=== PATIENT | female | born 1960 | race Caucasian/White ===

== ENCOUNTER → 2020-01-18 | Day surgery (SDC) | payer OTHER ==
[~2020-01-18] MED LIST: PREMYELOGRAM MEDICATION REVIEW 1 EACH MISC PO NR; diazePAM 5 MG TAB PO STA
[2020-01-18 08:37] VITALS: RESP 16; TEMP 98.2
--- NOTE | 2020-01-18 10:24 | FL ---
EXAMINATION TYPE: FL myelogram 2 or more regions DATE OF EXAM: 01/18/2020 COMPARISON: Outside institution MRI lumbar spine 12/15/2019 HISTORY: M54.6, M54.5 Preprocedure preliminary arc trimmer radiograph of the lumbar spine demonstrates bilateral posterior fixati on rods and transpedicular screws of T12 and L2. Informed consent was obtained and all the patient's questions were answered. The L2-L3 level was loc alized under fluoroscopy. Standard sterile technique was utilized as well as appropriate local anest hesia 1% Lidocaine and sodium bicarbonate. Spinal needle was introduced into the thecal sac under fl uoroscopic guidance and 8 mL's of Isovue M 300 was injected. The patient tolerated the procedure wel l and left the department in stable condition. CT myelography is to follow. Postprocedure imaging demonstrates multilevel disc bulges, and chronic deformity of the L1 vertebral body, redemonstrated from outside institution 12/15/2019 MRI spine. Total fluoroscopy time 34 seconds Total images acquired 4 IMPRESSION: 1. Successful myelography lumbar spine. 2. Thoracic and lumbar CT myelography to follow.
[2020-01-18 15:36] VITALS: BP 161/91; PULSE 102
--- NOTE | 2020-01-19 12:39 | CT ---
EXAMINATION TYPE: CT thor lumbar spine w con DATE OF EXAM: 01/18/2020 COMPARISON: Fluoroscopic myelogram 01/18/2020. Outside institution MRI lumbar spine 12/15/2019. HISTORY: M54.6, M54.5 Automated exposure control for dose reduction was used. CONTRAST: CT scan of the thoracic and lumbar is performed with intrathecal contrast status post fluoroscopic marcio mbar myelogram. Enhanced CT of the thoracic and lumbar spine was performed. Bone and soft tissue window settings are submitted as well as coronal and sagittal reconstructions. Intrathecal contrast is seen from the level of T2 through the level of L4. No acute fracture or dislocation of the thoracic or lumbar spine. There are bilateral posterior fixation rods and transpedicular screws of T12 and L2 with no evidence of significant loosening. There is likely fracture of the right L2 transpedicular screw. There is redemonstrated vertically oriented fracture anterior and mid of the L1 vertebral body, with mild to moderate superior endplate height loss and mild inferior endplate height loss. There is nonun ion of the right mid vertebral body fracture component. Mild retropulsion of L1 with mild canal steno sis. There are diffuse anterior and posterior osteophytic spurring, and posterior disc bulges from T6-T7 t hrough T11-T12, all of which indent the ventral aspect of the thecal sac. At T7-T8 there is superimpo sed left subarticular and foraminal osteophytosis with mild canal stenosis and mass effect on the lef t lateral recess. T9-T10 mild canal stenosis. T11-T12 mild superimposed asymmetric right subarticular disc protrusion indents the ventral aspect of the thecal sac. Posterior disc bulging at L3-L4 with [id number] canal stenosis. There is grade 1 anterolisthesi s of L4 on L5, and abrupt cut off of intrathecal contrast at L4-L5, likely due to severe canal stenos is, and consistent with 12/15/2019 MRI findings. L5-S1 is limited in evaluation due to lack of intrath ecal contrast at this level. There is severe L5-S1 disc space narrowing. Vacuum disc phenomenon is se en at L4-L5 and L5-S1. Facet arthropathy with varying degrees of neural foraminal bony encroachment, better delineated on MRI comparison. Nonobstructing bilateral renal calculi. IMPRESSION: 1. Posterior fixation of T12 and L2, likely with fracture of the mid right L2 transpedicular screw. 2. Redemonstrated fracture compression deformity of the L1 vertebral body with mild retropulsion and mild canal stenosis. 3. Degenerative changes of the thoracic and lumbar spine. Varying degrees of mild canal stenosis of the thoracic spine. Varying degrees of mild to severe canal stenosis of the lumbar spine, with abrupt cut off of intrathecal contrast and severe canal stenosis at L4-L5. 4. Nonobstructing bilateral renal calculi.
== END ==
LOC: RADPROMAIN 06:54
PROVIDERS: ATTEND Orthopaedic Surgery
DX: M47.27 Other spondylosis with radiculopathy, lumbosacral region (principal); M48.061 Spinal stenosis, lumbar region without neurogenic claudication; M43.16 Spondylolisthesis, lumbar region; F32.9 Major depressive disorder, single episode, unspecified; Z82.3 Family history of stroke; Z80.8 Family history of malignant neoplasm of other organs or systems
CPT/HCPCS: 62305; 72129; 72132; J2001; Q9967

== ENCOUNTER → 2020-01-26 | Outpatient (CLI) | payer OTHER | END | disposition home or self-care (01) | LOC: LABPAT 10:11 | PROVIDERS: ATTEND Orthopaedic Surgery | DX: Z01.812 Encounter for preprocedural laboratory examination (principal) | CPT/HCPCS: 87070 ==

== ENCOUNTER → 2020-02-01 | Outpatient (CLI) | payer OTHER ==
--- NOTE | 2020-02-01 12:26 | XR ---
EXAMINATION TYPE: XR chest 2V DATE OF EXAM: 02/01/2020 COMPARISON: None INDICATION: Preprocedure exam TECHNIQUE: Frontal and lateral views of the chest are obtained. FINDINGS: The heart size is normal. The pulmonary vasculature is normal. The lungs are clear. Postsurgical changes are noted at the thoracolumbar junction IMPRESSION: 1. No acute pulmonary process.
== END | disposition home or self-care (01) ==
LOC: RADXRMAIN 10:57
PROVIDERS: ATTEND Family Medicine
DX: Z01.818 Encounter for other preprocedural examination (principal)
CPT/HCPCS: 71046

== ENCOUNTER 2020-02-14 12:50 | Inpatient (IN) | payer OTHER ==
[2020-02-15 09:40] VITALS: BMI 26.5
[2020-02-20] MEDS ORDERED: TRANEXAMIC ACID 1,000 MG in SODIUM CHLORIDE 0.9% 100 ML IVPB ONE ×6 (05:00→21:00)
[2020-02-20] MEDS ORDERED: ACETAMINOPHEN TAB 500 MG TAB PO ONE (05:00)
[2020-02-20] MEDS ORDERED: ONDANSETRON 4 MG/2 ML VIAL IVP ONE ×2 (05:00→05:27)
[2020-02-20] MEDS ORDERED: GABAPENTIN 300 MG CAP PO ONE (05:00)
[2020-02-20] MEDS ORDERED: LIDOCAINE 1% (10MG/ML) FOR IV START INTRADERMA PRN (05:27)
[2020-02-20] MEDS ORDERED: HYDROmorphone 0.5 MG/0.5 ML SYRINGE IVP PRN (05:27)
[2020-02-20] MEDS: LACTATED RINGERS 1,000 ML IV SCH (08:32)
--- NOTE | 2020-02-20 10:05 | P.HPOR ---
History of Present Illness Chief Complaint: Low back pain with LE weakness HISTORY: Physical Therapy: Yes How many sessions? 4 weeks Did it help? No Injections: Yes How many? in 2013 Did they help? minimal Activity Modifications: none Brace: No This 59 year old female presents with 10 years of low back pain. She note carlo that radiates across the entire low back and down into her right leg. She also notes pain into the left thigh ( lateral). Patient has increased pain with walking or when standing from a seated position. Patient also notes weakness in her right lower extremity.. She has history of fracture in her low back 2011 when she was thrown off of a horse. She had a burst-type fracture which was stabilized.. She had decompression lumbar spine 2013which she states helped her for a short amount of time but that the symptoms are returning and getting worse. She states that she's been visiting physical therapy and doing sessions with this however the therapist is noting that she is getting weaker in her right lower extremity and that she strained to have atrophy of her calf muscle.. Patient takes Tylenol as needed. she denies any other injury to her back. She denies any changes in her bowel or bladder control. She denies perineal numbness. The patients' past social, medical, family, surgical history, as well as review of systems, have been reviewed. Please refer to the Neurosurgery History and Physical form that has been scanned in to our electronic medical record system. Review of Systems 14 points review of systems completed and as stated in HPI or otherwise negative. Past Medical History Past Medical History: Hypertension, Osteoarthritis (OA) Additional Past Medical History / Comment(s): Depression, Hx fracture of thoracic spine 2011 with surgery , kidney stones., states recent elevated bloodpressure due to stress. History of Any Multi-Drug Resistant Organisms: None Reported Past Surgical History: Cholecystectomy, Hysterectomy, Orthopedic Surgery Additional Past Surgical History / Comment(s): carpal tunnel bilateral, parathyoidectomy (d/t growth), back surge, 2011 fracture with pin and plate in spine thoracic ([place]), 2013 sciatic nerve release. Past Anesthesia/Blood Transfusion Reactions: Previous Problems w/ Anesthesia, Motion Sickness Additional Past Anesthesia/Blood Transfusion Reaction / Comment(s): states trachial spasms in 1990- no problems since then. Past Psychological History: ADD/ADHD, Depression Smoking Status: Former smoker Past Alcohol Use History: Daily Additional Past Alcohol Use History / Comment(s): quit smoking 30 yrs ago, (1989), smoked 1 1/2 ppd, started smoking age 11. Drinks 2-3 "cups" of wine daily. Past Drug Use History: None Reported - Past Family History Father Family Medical History: Cancer, Diabetes Mellitus Additional Family Medical History / Comment(s): bone cancer Sister(s) Family Medical History: Cancer Additional Family Medical History / Comment(s): Breast cancer Medications and Allergies Home Medications Medication Instructions Recorded Confirmed Type Desvenlafaxine Succinate [Pristiq] 200 mg PO DAILY 01/05/20 02/15/20 History Methylphenidate HCl [Ritalin] 20 mg PO TID 01/05/20 02/15/20 History Metoprolol Tartrate [Lopressor] 50 mg PO DAILY 01/05/20 02/15/20 History buPROPion HCL [Wellbutrin XL] 300 mg PO DAILY 01/05/20 02/15/20 History buPROPion SR [Wellbutrin Sr] 150 mg PO DAILY 01/05/20 02/15/20 History Calcium 500/ Vit D 25 Mcg 2 tab PO DAILY 02/15/20 02/15/20 History Magnesium Oxide [Valiente] 500 mg PO DAILY 02/15/20 02/15/20 History Melatonin 14 mg PO HS 02/15/20 02/15/20 History Multivit with Calcium,Iron,Min 1 each PO DAILY 02/15/20 02/15/20 History [Women's Multivitamin] Allergies Allergy/AdvReac Type Severity Reaction Status Date / Time No Known Allergies Allergy Verified 02/15/20 08:58 Physical Examination Osteopathic Statement: *. No significant issues noted on an osteopathic structural exam other than those noted in the History and Physical/Consult. General: Awake, alert, appropriate for age, in no acute distress. HEENT: No unusual neck masses around region of lateral neck triangle, thyroid, supraclavicular groove Extremities: Skin warm and dry without acute lesions, coloration, temperature, skin intact, no tenderness or erythema Integument: Hairy patches: Absent Dorsal skin dimples: Absent Cafe au lait spots: Absent Surgical incisions: left paramedian incision at L4 5 from previous decompression. She also has stabbing incisions bilaterally from her MIS treated burst fracture around the thoracolumbar junction. All these are well-healed. All are without tenderness. Palpation: Please see Pain drawing on Intake sheet for further detail. Midline spinal tenderness: yes lumbar E6 Paralumbar tenderness: No E6 Parathoracic tenderness: No E6 Piriformas tenderness: yes left bilateral E6 Special findings: greater trochanter bursa left POSTURAL and MUSCULO-SKELETAL EVALUATION: Coronal Balance: Neutral Recumbent testing: Patient is able to lay flat on back Sagittal Balance: Neutral Shoulder Profile: [Level] level Pelvic Girdle: [Level] level Neck ROM: Unrestricted Lumbar ROM: Unrestricted Shoulder ROM: Symmetric in abduction, ER/IR Hip ROM: Symmetric in abduction, adduction, ER/IR Knee ROM: Symmetric and intact in Flexion / extension Hands: normal Feet: normal VASCULAR STATUS : LEFT RIGHT Wrist Pulses intact intact Pedal Pulses (Dors. pedis & post.tibialis) intact intact Color normal normal Edema Absent Absent NEUROLOGIC EXAMINATION: Mental Status: Awake and alert, fully oriented, with normal attention, concentration and memory, and fluent, appropriate speech. Cranial Nerves: I: Olfactory not tested. II: Visual acuity normal, no visual field deficit noted with confrontation. III,IV: Normal pupillary reflexes & intact extraocular movements without nystagmus. V,: Intact symmetrical facial sensation. VII: Intact symmetrical facial motor movement VIII: Hearing intact. IX,X: normal voice. XI: Sternocleidomastoid, trapezius function intact. XII: Tongue midline with normal movements. L'hermitte's Sign: Negative / absent Spurling'Sign: not tested Cubital percussion test: not tested Pankaj-Tinel sign - Carpal region: Absent bilaterally. Straight Leg Raising: Absent bilaterally. Crossed straight leg raise: negative O8 MOTOR EXAM (0-5/5, N/T) STRENGTH RIGHT LEFT Shoulder Abd (not part of the SELENE score) 5 5 Elbow Flexors 5 5 Elbow Extensor 5 5 Wrist Dorsiflexors 5 5 Finger Abductor 5 5 Survey Research Professor 5 5 Hip Flexor (Not part of SELENE Motor score) 5 5 Knee Flexor 4 4 Knee Extensor 5 5 Ankle dorsiflexor 5 5 Ankle plantarflexion 4+ 4+ Extensor hallucis 5 5 REFLEXES(0-4/2, NT) RIGHT LEFT Upper Extremities 2 2 Lower Extremities 3 3 Pathological Reflexes RIGHT LEFT Crawford's Absent Absent Clonus Absent Absent # Indicates mechanical impairment Muscle appearance: she has slight atrophy of her calf on the right which is notable from the left. Otherwise there is good tone. Rectal Tone: not tested Sensory system (0-4, N/T) Test type RU MARBIN RL LL Joint-Position 2 2 2 2 Vibration 2 2 2 2 Pain & LT sense 2 2 2 2 Dermatomal Deficit: none none L2 L3 and L4 all have decreased sensation to light touch L3 4 and 5 all have decreased sensation to light touch Gait and Functional Evaluation: Ambulatory aids: Independent Romberg's test: Intact bilaterally Toe heel walk / heel-toe walk intact while maintaining satisfactory balance? yes Squatting/straightening w/o assistance to a min of 60 degree knee flexion? yes Single leg stance: intact Trendelenburg sign negative bilaterally Hand and finger dexterity intact bilaterally? yes Disdiadochokinesis examination negative bilaterally? yes Results AP lateral flexion and extension views of the lumbar spine are obtained in the office and reviewed. There are postsurgical changes from T12 to L2 with hardware placement due to the L1 burst fracture which appears stable at this time. There is minimal healing this area noted. There is no progression of kyphosis or deformity however of this fracture. Screws are well aligned and do not appear to be unstable however there is no comparison for these currently. The patient has approximately 51 of lumbar lordosis and 67 of pelvic incidence. There is spondylosis of L5 on S1 with decreased disc height and foraminal stenosis along with facet arthropathy. At L4 5 there is a grade 1 spondylolisthesis. A neutral films this measured approximate 7.7 mm and on flexion films this is increases to about 9 mm. The remainder of the spinous is without fracture dislocation. AP pelvis taken in office today demonstrates congruent femoral acetabular joints level pelvis no fractures or dislocations noted. MRI from an outside facility is reviewed. I do agree with the radiology impression of spondylosis at L4 5 and 51 with severe spinal canal stenosis at L4 5 and L5-S1 with neural foraminal stenosis bilaterally. CT MYELOGRAM: this was reviewed with the patient today. This demonstrates a complete dye block at L4 through L5 with turbulent flow noted proximal to this region. This also demonstrates the failed hardware at T 12 to L1 in L2 on the right-hand side. The fracture does appear to have healed although slightly incompletely at L1. There is no focal deformity. there is severe spondylosis from L4 through S1 with a grade 1 anterior listhesis of L4 on L5. No other fractures or dislocations are noted. Overall alignment is maintained. Assessment and Plan Assessment: Severe stenosis L4-S1 with spondylosis of L4-S1 with Grade I spondylolisthesis of L4-5 with neurogenic claudication. Plan: Tanika Reis is a 59 yo female presenting for evaluation of LE weakness, difficulty with ambulation, RLE pain, radiculopathy, low back pain and feelings of instability. It was my pleasure to have seen and examined Tanika Reis. In our visit today we have had a chance to go over subjective complaints, physical examination findings and treatments including the natural course history without intervention and various interventional options. His/her imaging demonstrates complete dye block at L4-S1 with severe stenosis L4-S1, spondylosis L4-S1, Grade I spondylolisthes of L4-5. On physical exam, Tanika Reis demonstrates RLE weakness, radiculopathy, neurogenic claudication and low back pain. I explained to the patient that as her condition progresses it will cause further neurological deficits and eventual paralysis. Based on the patients imaging, physical exam, and the rapid progression and disabling nature of her symptoms, at this time I recommend surgery in the form or a: L4-S1 posterolateral interbody fusion. I discussed the risk and benefits of this procedure at length with Tanika Reis. The patient and her agreed to considered pursuing the procedure abovementioned. Currently, I recommend: Surgical intervention. Prior to surgery, she should follow up with her PCP (Cardio, ID, IM etc) for clearance. Questions were invited and answered, and the patient wishes to proceed as outlined below. Currently, I am recommendin.Lumbar 4 to Sacral 1 posterolateral interbody fusion, with decompressive laminectomy and instrumentation with screws, rods, cages and bone graft. 2.Follow up with PCP for surgical clearance 3.Review of surgical risks and benefits as well as an educational packet on the proposed surgical procedure. Risks: All surgical procedures come with inherent risks, including those related to positioning, anesthesia, intraoperative findings, and postoperative complications. It is important to understand that surgery does not come with any guarantee of a successful outcome as complications and adverse events are always possible. The patient was given a handout in office today discussing the surgical procedure and risks associated with the intervention, both of which were discussed with the patient. These risks include but are not limited to the following: ? Experiencing same, different or even worse symptoms in back, neck, arms, or legs compared to before surgery. ? Requiring further surgery or other forms of treatment presently or at some time in the future at same or other levels of the intended spine surgery. ? On an extreme but fortunately relatively rare basis severe complication such as blindness, stroke, heart attack, temporary and/or permanent nerve injury, paralysis, coma, or may occur, sometimes without known explanation. ? Surgical complications may include but are not limited to risk of infection, fluid accumulation in the surgical dissection site, including a seroma or hematoma, that requires additional surgery, wound drainage, bleeding, new numbness or weakness, vision changes/loss, spinal fluid leakage, non-healing and/or infected incision, headaches, difficulty or inability to swallow, hoarseness, hemopneumothorax, pneumothorax, impotence, retrograde ejaculation, vaginal dryness; injury to nerves, spinal cord, blood vessels, lymphatics or other vital organs (i.e., bowel injury, injury to the great vessels); heterotopic bone formation; complications related to the hardware such as screws, rods, cages including misplaced hardware, device failure, instrumentation at the wrong spine level, hardware fracture/breakage, or hardware loosening; vertebral failure of the spinal column above or below the newly placed hardware; retained surgical instrumentations or devices and the need for further surgery. ? Medical risks of the planned spine surgery include but are not limited to generalized Infections to the whole body or local areas outside of the surgical site (sepsis), heart attack, bleeding, anaphylaxis, meningitis, seizure, epilepsy, hearing loss, burn martinez, laceration of the head or other areas of the body, bruising, hypersensitivity of the skin, bladder over distension; allergic reaction; shoulder injury related to positioning; fat, blood and air clots to other areas of the body like heart, lungs, brain; failure of internal organs such as lungs, kidneys, liver and excessive bleeding. If blood transfusions are necessary, note that transfusions may cause intolerance reactions such as anaphylaxis or other complex reactions. Despite best efforts, the results of spine surgery might not heal in terms of bone, soft tissues such as skin, fascia, ligaments, and joints. Additionally, in order to achieve best possible results, spine surgery may be carried out beyond the initially planned levels and involve decompression, fusion including insertion of hardware at levels other than the original intended area of surgical interest change some portions of the procedure in order to ensure the best possible outcomes. With spine surgery and spinal fusion, there are different off label uses of instrumentation (devices, implants and hardware) as well as biological substances (bone morphogenic proteins, demineralized bone matrix) as well as using extra bone from allograft sources (i.e. cadaver bone) or autograft (iliac crest bone, ribs, or the spine itself). The patient has been given information about these practices and their inherent risks and benefits. [facility] is an educational center that serves as a training facility for neurosurgical and orthopedic spine residents and fellows. Residents are physicians who are completing their surgical intensive training following medical school. They assist in the operating room with direct supervision of the attending surgeons. [place] are surgeons who have completed their training and eligible for board certification. They have opted for an elective year of more specialized training in their field. They assist in the operating room under the supervision of the attending surgeons. Physician assistants are medically trained surgical providers who function in the outpatient, inpatient, and operating room setting under the direct supervision of the attending surgeon. [facility] has multiple operating rooms with single and overlapping rooms running daily. They currently function under the required guidelines as produced by the [facility] Finance Committee with regards to the overlapping rooms and will continue to comply with changes to this policy as they occur. The requirements include and are complied with as follows: (1) the critical portions of the overlapping rooms will not occur at the same time, (2) the attending physician will be physically present during the critical portions of the pro cedure and immediately available during the entire case, and (3) a back-up attending is designated should the primary attending not be immediately available. The patient has had a chance to review all the listed information, has been given print outs detailing this information, and has had all his/her questions answered to their satisfaction. It was my pleasure to have seen and examined Tanika Reis. In our visit today we have had a chance to go over my understanding of our patient's current condition, the natural course history without intervention and various interventional options. Questions were invited and answered, and the patient wishes to proceed as outlined above. I have seen and examined the patient for 25 minutes and we have spent more than 50% of the time in repeat and detailed counseling about the patient's condition, its natural course history with out and as much as can be predicted with surgery and re-review of various surgical treatment options. In conclusion, Tanika Reis and requested we proceed with the above suggested surgery and are willing to accept risks and limitations of the suggested surgery as nature of the disease process and our best attempts at treatment for the condition. Thank you again for allowing us to be part of your patient's care. Please don't hesitate to contact me if you have any further questions. Signed and authenticated by: Ricardo Busby [facility] [address], [address] [address]
[2020-02-20] MEDS ORDERED: LIDOCAINE 1% INJ 10MG/ML (20 ML MDV) ONE (10:35)
[2020-02-20] MEDS ORDERED: ePHEDrine SULFATE/0.9% NACL/PF 50 MG/5 ML SYRINGE IV ONE (10:35)
[2020-02-20] MEDS ORDERED: PHENYLEPHRINE-0.9% NACL SYG 1 MG/10 ML SYRINGE ONE (10:35)
[2020-02-20] MEDS ORDERED: SUCCINYLCHOLINE CHLORIDE 100 MG/5 ML SYR IV ONE (10:35)
[2020-02-20] MEDS ORDERED: SODIUM CHLORIDE 0.9% IRRIG 1,000 ML BTL IRRIGATION ONE (10:35)
[2020-02-20] MEDS ORDERED: PROPOFOL 10 MG/ML 20 ML VIAL IV ONE (10:35)
[2020-02-20] MEDS ORDERED: MIDAZOLAM 2 MG/2 ML VIAL ONE (10:35)
[2020-02-20] MEDS ORDERED: WATER FOR INJECTION, STERILE 10 ML VIAL IV ONE (10:35)
[2020-02-20] MEDS ORDERED: SODIUM CHLORIDE 0.9% 100 ML BAG ONE (10:35)
[2020-02-20] MEDS ORDERED: fentaNYL (PF) 50 MCG/ML 2 ML AMP ONE (10:35)
[2020-02-20] MEDS ORDERED: ROCURONIUM 10 MG/ML (10 ML VIAL) IV ONE (10:35)
[2020-02-20] MEDS ORDERED: TRANEXAMIC ACID 1,000 MG/10 ML VIAL ONE (10:35)
[2020-02-20] MEDS ORDERED: HEPARIN SODIUM,PORCINE 10,000 UNIT/ML 1 ML VIAL ONE (10:35)
[2020-02-20] MEDS ORDERED: KETAMINE 10 MG/ML 20 ML VIAL ONE (10:35)
[2020-02-20] MEDS ORDERED: BUPIVACAINE (PF) 0.25% 30 ML VIAL SQ ONE (11:26)
[2020-02-20] MEDS ORDERED: GELATIN SPONGE,ABSORB (LARGE) 1 EACH SPONGE TOPICAL ONE (11:26)
[2020-02-20] MEDS ORDERED: THROMBIN (BOVINE) 5,000 UNIT VIAL TOPICAL ONE (13:03)
[2020-02-20 14:55] LABS: Basophils % (A) 0 %; Eosinophils # (A) 0.2 k/uL (0-0.7); Eosinophils % (A) 2 %; HCT 36.4 % (34.0-46.0); HGB 11.5 gm/dL (11.4-16.0); Lymphocytes # (A) 1.4 k/uL (1.0-4.8); Lymphocytes % (A) 14 %; MCH 30.3 pg (25.0-35.0); MCHC 31.5 g/dL (31.0-37.0); MCV 96.2 fL (80.0-100.0); Mean Platelet Volume 7.1; Monocytes # (A) 0.5 k/uL (0-1.0); Monocytes % (A) 6 %; Neutrophils # (A) 7.4 k/uL (1.3-7.7); Neutrophils % (A) 77 %; Platelet Count 327 k/uL (150-450); RBC 3.79 m/uL (3.80-5.40); RDW 13.3 % (11.5-15.5); WBC 9.7 k/uL (3.8-10.6)
[2020-02-20] MEDS ORDERED: LACTATED RINGERS 1,000 ML IV ONE ×2 (15:28→18:11)
[2020-02-20] MEDS ORDERED: ACETAMINOPHEN TAB 500 MG TAB PO PRN (17:03)
[2020-02-20] MEDS ORDERED: methocarbamoL 750 MG TAB PO PRN (17:03)
[2020-02-20] MEDS ORDERED: HYDROmorphone 0.5 MG/0.5 ML SYRINGE IVP ONE ×3 (17:05→17:21)
--- NOTE | 2020-02-20 17:23 | P.OP ---
Date of Procedure: 02/20/20 Preoperative Diagnosis: 1. Severe spondylosis L4-S1 2. Severe stenosis L4-S1 3. s/p previous back surgery Postoperative Diagnosis: 1. Severe spondylosis L4-S1 2. Severe stenosis L4-S1 3. s/p previous back surgery 4. 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 1. L4-5 and L5-S1 posterolateral fusion 2. L4-5 and L5-S1 interbody fusion 3. L4-5 and L5-S1 decompressive laminectomy, complete facetectomy 4. L5-S1 3 column osteotomy (intradiscal osteotomy) for deformity correction. 5. Removal of bone for repair of bony dural erosion L5-S1 6. Application of bone graft 7. Use of intraoperative navigation for screw placement Implants: [place] Hermann screws 6.5 mm x 50 and 7.5 x40 and 45 mm Two 8-13 mm life spine expandable cages L5-S1 One 8-13 mm life spine expandable interbody cage L4-5 Vesuvius allograft Autograft Anesthesia: GETA Surgeon: Ricardo Acevedo Surgical Processor #1: Pravin Mendieta (YAW Segal was present for all major portions of the procedure and was necessary due to the complexity of the surgery) Estimated Blood Loss (ml): 800 IV fluids (ml): 2,300 Urine output (ml): 250 Pathology: none sent Condition: stable Disposition: PACU Indications for Procedure: This 59 year old female presents with 10 years of low back pain. She note carlo that radiates across the entire low back and down into her right leg. She also notes pain into the left thigh ( lateral). Patient has increased pain with walking or when standing from a seated position. Patient also notes weakness in her right lower extremity.. She has history of fracture in her low back 2011 when she was thrown off of a horse. She had a burst-type fracture which was stabilized.. She had decompression lumbar spine 2013which she states helped her for a short amount of time but that the symptoms are returning and getting worse. She states that she's been visiting physical therapy and doing sessions with this however the therapist is noting that she is getting weaker in her right lower extremity and that she strained to have atrophy of her calf muscle.. Patient takes Tylenol as needed. she denies any other injury to her back. She denies any changes in her bowel or bladder control. She denies perineal numbness. Operative Findings: severe stenosis and spondylosis of L4-S1 with L5-S1 R sided dural erosion due to previous surgery and scarring. Description of Procedure: The patient was seen and examined in the preoperative area. All preoperative protocols were followed. Informed consent was obtained risks and benefits of the procedure were discussed at length. Risks including bleeding infection damage to the surrounding tissue and risk of reoperation were discussed with the patient. Risk of anesthesia up to and including was a discussed with the patient. These are outlined in the risk review. They were willing to accept these risks and all of the risks of surgery. The patient was given a weight- based dose of antibiotics in the form of 1 g of Ancef preoperatively IVPB 30 minutes prior to incision. The patient was seen and evaluated by the anesthesia team who deemed them fit for surgery. The site was marked, the patient was willing to proceed with the procedure. The patient was transferred to the operative suite by the Department of anesthesia. They were then drifted off to sleep by the department anesthesia Gen. endotracheal intubation was performed. The patient tolerated this well. Guzmán catheter was placed by nursing staff, atraumatically.. Once confirmation of lines and ventilation the patient was transferred to a prone Antolin table very carefully. All bony prominences including wrists, elbows, axilla, chest, hips, and thighs, and feet were padded very well. Special attention was paid to the genitalia and these were padded accordingly. SCDs were placed on bilateral lower extremities and were connected. Arms were well padded and placed on arm boards up and out in the 90/90 position. Once in position, again we confirmed good ventilation capabilities and that lines were running appropriately. The patient's lumbar spine was then exposed. 1010s were placed outlining the incision site. Standard alcohol was used to clean the incision site and allowed to dry. C-arm was used to biomark the patient and confirm level for incision which was marked with a skin marker. Operative briefing was performed with all teams and everyone in agreement to proceed. The patient was then prepped and draped in a normal sterile fashion. Timeout was then performed and all parties were in agreement with the procedure to be performed. A midline incision was made over the previously marked incisional area. Electrocautery dissection was taken down to the lumbosacral fascia which was exposed using a Burns and atraumatically. Meticulous hemostasis ensued. Once the fascia was identified fasciotomy was made over the midline of the spinous processes of L3 to S1. Subperiosteal dissection was taken down the lamina of each level out to the facet joints and identified the pars of each level. There was extremely hypertrophic bone noted throughout these areas there was significant scarring at the L5-S1 region. Once the bone was exposed and cleaned a lateral fluoroscopic shot was taken to confirm levels. The Bnooki navigation spinous process clamp was then placed on the L3 spinous process and configured. The sterile Z drape was then placed and a intraoperative 3-D C-arm spin was obtained. Once the levels were confirmed and good visualization was confirmed screws were placed using intraoperative navigation. Once the screws were placed they were confirmed to be in good position under AP and lateral fluoroscopy. All screws were then tested with neuro monitoring and all screws tested above 20 mA. The spinous process clamp was then removed and retractors replaced. Decompression then ensued starting at L5-S1 with complete facetectomies of the eye AP of L5 as well as the SAP of S1. On the right-hand side of S1 we encountered significant scarring and dural erosion. This was promptly identified. Bone was removed using a Kerrison Ronjair to expose this entire area. A 6-0 Prolene was then used to create a watertight seal of this erosion. A Valsalva to 40 mmHg was performed and held for 10 seconds and there is no continued CSF leak. The intervertebral disc space at L5-S1 was then identified using lateral fluoroscopy. A 3 column osteotomy was performed using a quarter inch osteotome under lateral fluoroscopy. The intradiscal osteotomy was performed. This was first done on the left-hand side while carefully protecting the exiting nerve root as well as dura. Lamina sheet metal helper was then introduced into the intradiscal space and opened. This allowed for decompression of the opposite side. Osteotome was again used to perform an intradiscal osteotomy on the opposite side. Disc material was removed endplates were shaved sequentially. Another lamina sheet metal helper was then placed on the right-hand side under lateral fluoroscopy. This was then opened. The residual lamina sheet metal helper was removed on the left-hand side the endplates were again confirmed to be clean and clear and they were rasped. Bone graft was not placed anteriorly. A 8-13 mm expandable cage was then atraumatically impacted into place under lateral fluoroscopy. This cage had a mixture of auto and allograft placed in it. It was then expanded under lateral fluoroscopy and confirmed to be in good position. The senior wind energy consultant was removed and the cage was confirmed to be stable. The lamina sheet metal helper was then removed from the right hand side and another cage of 8-13 mm expandable was selected. Graft was placed within the cage and anterior to it in the disc space of L5-S1. The nerve root as well as the dura were then protected and the cage was impacted into place under lateral fluoroscopy. This was confirmed to be in good position and expanded. The senior wind energy consultant was removed and the cage was tested and was stable. Attention was then drawn to the L4-L5 level. Complete facetectomies of the inferior articular facet as well as the superior articular facet of L4 and L5 respectively was performed. This unroofed the foramen and allowed a pedicle to pedicle decompression at this level as well. Osteotome was used to gain access to the disc space on the left-hand side of L4 and L5. Once good access had been obtained sequential shaving was performed until a 11 shaver was obtained. The endplates were then roughened under lateral fluoroscopy. The nerve root as well as the dura were then well protected and 8-13 mm 12 lordotic cage was selected and impacted into place under lateral fluoroscopy. This cage also contained autograft and allograft which was also placed anterior to the cage. Once the cages in good position under lateral fluoroscopy was expanded. There is very minimal endplate encroachment however the bone was extremely soft here. Once in good position under lateral fluoroscopy the senior wind energy consultant was removed and a cavus freida kenia and it was stable. Rods were then selected of the appropriate size and put into position set screws were placed and tightened down. Compression was performed between L4 and L5 screws using a large compressor and then the set screws were locked into place. They were then final tightened and confirmed to all the final tightened. The wound was then copiously irrigated with Irricept followed by 3 L of normal sterile saline. Another Valsalva was performed to 40 mmHg and there is no further CSF leak. DuraGen was then cut to size and placed over the dural erosive area this is followed by Surgicel and Tisseel. A second layer of Surgicel was placed as well as a second layer of Tisseel. Another Valsalva to 40 mmHg revealed no CSF leak. Bone graft was then placed posterior laterally after TP decortication. Meticulous hemostasis was achieved with electrocautery FloSeal and compression. We then placed a cross-link and this was final tightened into position. Final fluoroscopic images were taken and satisfactory. 2 g of powdered vancomycin were then placed into the wound. A small round Zach drain was placed deep within the wound. The lumbosacral fascia was then closed with #1 Vicryl followed by the subcutaneous tissue with 0 Vicryl followed by the subcu tissue with 2-0 Vicryl and finally the skin with josi. This was then covered with exiting glue. This is dressed sterilely with operative foam 4 x 4's around the drain and a Tegaderm. The patient was then transferred back to her hospital bed atraumatically. Drain continued to hold suction and were in good position. Patient was then awakened and extubated by the department of anesthesia having tolerated the procedure very well with no complications. She was transferred to the postoperative care unit in stable condition.
--- NOTE | 2020-02-20 17:26 | P.PN ---
Progress Note - Text Progress Note Date: 02/20/20 Spine postop note Patient was seen and examined in the postoperative care unit she was awake and alert and asking questions. She was moving all 4 extremities with good strength. She was in some pain. Her vital signs are stable at this time.
[2020-02-20] MEDS ORDERED: NALOXONE 0.4 MG/ML 1 ML VIAL IV PRN (17:30)
[2020-02-20] MEDS ORDERED: fentaNYL (PF) 50 MCG/ML 2 ML AMP IVP ONE (17:32)
[2020-02-20] MEDS ORDERED: HYDROmorphone PCA 10 MG/50 ML BAG IV PRN (17:36)
[2020-02-20] MEDS: HYDROmorphone 1 MG/ML 1 ML SYRINGE IVP PRN (20:12)
--- NOTE | 2020-02-20 20:17 | CT ---
EXAMINATION TYPE: CT lumbar spine wo con DATE OF EXAM: 02/20/2020 COMPARISON: MR scan 12/15/2019 HISTORY: post op lumbar fusion CT DLP: 960.4 mGycm Automated exposure control for dose reduction was used. Images were obtained from the level of T12-S3 vertebra without contrast. There is posterior fusion surgery from T12 to L2 vertebra. There is old compression fracture of L1 ve rtebra. The vertebra have fairly normal alignment. There is very slight anterior subluxation of L4 in relation L5. There is rods and screws fusing posteriorly the lumbar spine from L3 to S1. There is di sc prosthesis at L4-5 and L5-S1. There is no lumbar paraspinal mass. I see no focal bone destruction. Sacroiliac joints appear intact. IMPRESSION: There is new posterior fusion surgery from L4 to S1 compared to old exam. There is old fusion surgery at T12 L1 and L2 unchanged. There is a mild first-degree L4-5 spondylolisthesis unchanged compared t o old exam.
[2020-02-20] MEDS: GABAPENTIN 300 MG CAP PO SCH (22:07)
--- NOTE | 2020-02-21 00:33 | P.HPIM ---
History of Present Illness H&P Date: 02/20/20 Patient is a 59-year-old female with a PMH of hypertension who was admitted to the hospital for a lumbar spinal fusion and laminectomy. The patient was seen postoperatively. She reported 3 out of 10 pain at the site of the surgery on the back though denied any additional complaints. She denied lower extremity weakness, numbness, or tingling. Reported no radiation of the back pain. Further denied chest discomfort, shortness of breath, cough, fever, chills, nausea, vomiting, abdominal pain. Upon arrival to the medicine floor, the patient's BP was low with 70s/50s which improved to 90s/70s with IV fluids. The patient denied dizziness or headaches. Review of Systems Pertinent positives and negatives as discussed in HPI, a complete review of systems was performed and all other systems are negative. Past Medical History Past Medical History: Hypertension, Osteoarthritis (OA) Additional Past Medical History / Comment(s): Depression, Hx fracture of thoracic spine 2011 with surgery , kidney stones., states recent elevated bloodpressure due to stress. History of Any Multi-Drug Resistant Organisms: None Reported Past Surgical History: Cholecystectomy, Hysterectomy, Orthopedic Surgery Additional Past Surgical History / Comment(s): carpal tunnel bilateral, parathyoidectomy (d/t growth), back surgey, 2011 fracture with pin and plate in spine thoracic ([place]), 2013 sciatic nerve release. Past Anesthesia/Blood Transfusion Reactions: Previous Problems w/ Anesthesia, Motion Sickness Additional Past Anesthesia/Blood Transfusion Reaction / Comment(s): states trachial spasms in 1990- no problems since then. Smoking Status: Former smoker - Past Family History Father Family Medical History: Cancer, Diabetes Mellitus Additional Family Medical History / Comment(s): bone cancer Sister(s) Family Medical History: Cancer Additional Family Medical History / Comment(s): Breast cancer Medications and Allergies Home Medications Medication Instructions Recorded Confirmed Type Desvenlafaxine Succinate [Pristiq] 200 mg PO DAILY 01/05/20 02/20/20 History Methylphenidate HCl [Ritalin] 20 mg PO TID 01/05/20 02/20/20 History Metoprolol Tartrate [Lopressor] 50 mg PO DAILY 01/05/20 02/20/20 History buPROPion HCL [Wellbutrin XL] 300 mg PO DAILY 01/05/20 02/20/20 History buPROPion SR [Wellbutrin Sr] 150 mg PO DAILY 01/05/20 02/20/20 History Calcium 500/ Vit D 25 Mcg 2 tab PO DAILY 02/15/20 02/20/20 History Magnesium Oxide [Valiente] 500 mg PO DAILY 02/15/20 02/20/20 History Melatonin 14 mg PO HS 02/15/20 02/20/20 History Multivit with Calcium,Iron,Min 1 each PO DAILY 02/15/20 02/20/20 History [Women's Multivitamin] Allergies Allergy/AdvReac Type Severity Reaction Status Date / Time No Known Allergies Allergy Verified 02/15/20 08:58 Physical Exam Vitals: Vital Signs Temp Pulse Resp BP Pulse Ox 02/20/20 17:55 78 16 115/55 98 02/20/20 17:43 77 16 115/58 95 02/20/20 17:28 75 16 126/69 100 02/20/20 17:05 72 16 126/69 100 02/20/20 16:50 98.3 F 71 20 133/75 99 02/20/20 08:14 97.7 F 60 20 151/92 98 Intake and Output 02/20/20 02/20/20 02/20/20 06:59 14:59 22:59 Intake Total 1050 1100 Output Total 1140 Balance 1050 -40 Intake: IV 1050 500 Intake, IV Titration 200 Amount Lactated Ringers 1,000 ml 100 @ 20 mls/hr IV .Q24H [facility] Rx#:[id number] Tranexamic Acid 1,000 mg 100 In Sodium Chloride 0.9% 100 ml @ 200 mls/hr IVPB ONCE ONE Rx#:[id number] Oral 400 Output: Drainage 40 Lower Back 40 Urine 300 Estimated Blood Loss 800 Other: Weight 68.1 kg 68.1 kg General: non toxic, no distress, appears at stated age, overweight Derm: no unusual rashes/lesions no unusual ecchymoses, warm, dry Head: atraumatic, normocephalic, symmetric Eyes: EOMI, no lid lag, anicteric sclera, pupils equal round reactive to light ENT: Nose and ears atraumatic, no thrush, no pharyngeal erythema Neck: No thyromegaly, no cervical lymphadenopathy, trachea midline, supple Mouth: no lip lesion, mucus membranes moist Cardiovascular: S1S2 reg, no murmur, positive posterior tibial pulse bilateral, no edema, capillary refill less than 2 seconds Lungs: CTA bilateral, no rhonchi, no rales , no accessory muscle use Abdominal: soft, nontender to palpation, no guarding, no appreciable organomegaly, normal bowel sounds Ext: no gross muscle atrophy, muscle strength 5 out of 5 in all 4 extremities grossly, no contractures, spinal incision on the back noted to be clean and dry Neuro: CN II-XI grossly intact, light touch intact all 4 extremities, finger to nose within normal limits, Psych: Alert, oriented, appropriate affect Results CBC & Chem 7: 02/20/20 14:40 Labs: Abnormal Lab Results - Last 24 Hours (Table) 02/20/20 Range/Units 14:40 RBC 3.79 L (3.80-5.40) m/uL Thrombosis Risk Factor Assmnt - Choose All That Apply Any of the Below Risk Factors Present?: Yes Each Factor Represents 1 point: Obesity (BMI >25) Other Risk Factors: Yes Each Risk Factor Represents 2 Points: Age 61-74 years, Major surgery Other congenital or acquired thrombophilia - If yes, enter type in comment: No Thrombosis Risk Factor Assessment Total Risk Factor Score: 5 Thrombosis Risk Factor Assessment Level: High Risk Assessment and Plan Plan: Borderline blood pressure -Likely secondary to opiate pain medications -Continue with IV fluids -Patient asymptomatic Status post lumbar spinal fusion and laminectomy -Management including pain control as per the surgery service Chronic conditions: Hypertension -Hold off on antihypertensives We appreciate this opportunity to be involved in this patient's care. We will follow the patient with you. For any further questions, please not hesitate to contact the [facility] inpatient team.
[2020-02-21] MEDS: HYDROmorphone 1 MG/ML 1 ML SYRINGE IVP PRN ×4 (03:25→15:54)
[2020-02-21] MEDS: LACTATED RINGERS 1,000 ML IV SCH (04:58)
[2020-02-21 05:44] LABS: Basophils % (A) 0 %; Eosinophils # (A) 0.1 k/uL (0-0.7); Eosinophils % (A) 1 %; HCT 30.4 % (34.0-46.0); Lymphocytes # (A) 1.1 k/uL (1.0-4.8); Lymphocytes % (A) 11 %; MCH 32.1 pg (25.0-35.0); MCV 100.4 fL (80.0-100.0); Monocytes # (A) 0.6 k/uL (0-1.0); Monocytes % (A) 5 %; Neutrophils # (A) 8.2 k/uL (1.3-7.7); Neutrophils % (A) 81 %; Platelet Count 215 k/uL (150-450); RBC 3.03 m/uL (3.80-5.40); RDW 13.3 % (11.5-15.5); WBC 10.1 k/uL (3.8-10.6)
[2020-02-21 05:53] LABS: HGB 9.7 gm/dL (11.4-16.0)
[2020-02-21] MEDS ORDERED: DEXAMETHASONE SOD PHOSPHATE 10 MG/ML 1 ML VIAL IV STA (07:37)
--- NOTE | 2020-02-21 07:40 | FL ---
Fluoroscopy INDICATION: Pain FINDINGS: Fluoroscopy time: 50 seconds. Images obtained: 9. IMPRESSIONS: 1. Documentation of fluoroscopy.
--- NOTE | 2020-02-21 07:48 | P.PN ---
Progress Note - Text Progress Note Date: 02/21/20 [facility] Progress Note DOS: 02/20/2020 POD: 1 SUBJECTIVE: Patient seen and examined she is doing fairly well as morning. She is having pain. Her oral medications were not given overnight. These are ordered. There was concern for her blood pressure overnight it is a little bit on the low side and so some of the medications were held. She denies any fevers chills shortness of breath or chest pain. She denies any headache. She has not been up however is seated in bed. She denies any new numbness or tingling. She denies any weakness. Guzmán is in place OBJECTIVE: Vital signs stable at this time. Lab values are reviewed hemoglobin is 9.7 this morning. General: AOX3, NAD Incision CDI Drain: [200 mL] Motor Exam: RUE: 5/5 SA, EF, EE, WF, WE, Intrinsic, Packaging Associate LUE: 5/5 SA, EF, EE, WF, WE, Intrinsic, Packaging Associate RLE: 5/5 HF, KE, KF, DF, PF, EHL, FHL LLE: 5/5 HF, KE, KF, DF, PF, EHL, FH Reflexes: 2/4 in UE and LE b/l SILT C5-T1 and L2-S1 Dermatomal deficit: She states some numbness in her great toe on the right that did not seem to be there before however it seems to be getting better. +distal pulses palpable Negative hoffmans b/l Negative babinski b/l No clonus ASSESSMENT: 59-year-old female postop day 1 from L4 to S1 posterior lateral and interbody fusion and decompression PLAN: 1. Up with assist. Guzmán out when patient is up 2. Pain control: Tylenol 1000 mg scheduled, OxyIR 5-10 mg by mouth when necessary every 4 hours, Robaxin 750 mg 3 times a day, one-time dose Decadron 6 mg 3. PT/OT, OK for up and about. No braces needed. No BLTs. No lifting >5lbs 4. TEDs, SCDs, Early ambulation 5. Trend labs transfuse as needed 6. Appreciate medicine consultation 7. Monitor vital signs 8. Expected length of stay 1-2 days. This bone will be to home with home health care with her sister
[2020-02-21] MEDS: METHYLPHENIDATE HCL 10 MG TAB PO SCH ×3 (09:00→21:14)
[2020-02-21] MEDS: SENNOSIDES-DOCUSATE SODIUM 1 EACH TAB PO SCH (09:00)
[2020-02-21] MEDS: GABAPENTIN 300 MG CAP PO SCH ×3 (09:00→22:22)
[2020-02-21] MEDS: polyethylene glycoL 3350 17 GM POWD.PACK PO SCH (09:00)
[2020-02-21] MEDS: methocarbamoL 750 MG TAB PO SCH ×4 (09:01→21:13)
[2020-02-21] MEDS ORDERED: oxyCODONE-APAP 5-325MG 1 EACH TAB PO PRN (10:19)
[2020-02-21] MEDS ORDERED: oxyCODONE-APAP 10-325MG 1 EACH TAB PO PRN (10:19)
[2020-02-21] MEDS ORDERED: buPROPion SR 150 MG TABLET.ER PO SCH (11:30)
[2020-02-21] MEDS: buPROPion SR 150 MG TABLET.ER PO SCH (13:50)
--- NOTE | 2020-02-21 16:53 | P.PN ---
Subjective Progress Note Date: 02/21/20 (delayed charting seen at 1120) Principal diagnosis: back pain Patient is a 59-year-old female with hypertension, depression, and arthritis who presented for elective lumbar decompression and fusion. She tolerated the procedure well. Patient seen and examined at bedside. She states her pain has been manageable although she is needing her pain medication. She denies any significant nausea or vomiting. No chest pain or shortness of breath. Has been up and ambulating well. No bowel movement since admission. Objective - Vital Signs Vital signs: Vital Signs Temp 98.3 F 02/21/20 11:50 Pulse 90 02/21/20 11:50 Resp 17 02/21/20 11:50 BP 128/71 02/21/20 11:50 Pulse Ox 94 L 02/21/20 11:50 Intake & Output 02/20/20 02/21/20 02/21/20 18:59 06:59 18:59 Intake Total 1550 1260 1500 Output Total 1100 1310 1820 Balance 450 -50 -320 Weight 68.1 kg 68.1 kg Intake: IV 1550 Intake, IV Titration 360 Amount Lactated Ringers 1,000 ml 260 @ 20 mls/hr IV .Q24H [facility] Rx#:[id number] Tranexamic Acid 1,000 mg 100 In Sodium Chloride 0.9% 100 ml @ 200 mls/hr IVPB ONCE ONE Rx#:[id number] Oral 900 1500 Output: Drainage 110 20 Lower Back 110 20 Urine 300 1200 1800 Uretheral (Guzmán) 1000 900 Estimated Blood Loss 800 Other: Voiding Method Indwelling Catheter Indwelling Catheter # Voids 3 - Exam General: non toxic, mild distress due to pain, appears at stated age Derm: warm, dry Head: atraumatic, normocephalic, symmetric Eyes: EOMI, no lid lag, anicteric sclera Mouth: no lip lesion, mucus membranes moist Cardiovascular: S1S2 reg, no murmur, positive posterior tibial pulse bilateral, Lungs: CTA bilateral, no rhonchi, no rales , no accessory muscle use Abdominal: soft, nontender to palpation, no guarding, no appreciable organomegaly Ext: no gross muscle atrophy, trace edema, no contractures Neuro: CN II-XI grossly intact, no focal neuro deficits Psych: Alert, oriented, anxious and animated - Labs CBC & Chem 7: 02/21/20 04:53 Labs: Abnormal Lab Results - Last 24 Hours (Table) 02/21/20 Range/Units 04:53 RBC 3.03 L (3.80-5.40) m/uL Hgb 9.7 L D (11.4-16.0) gm/dL Hct 30.4 L (34.0-46.0) % MCV 100.4 H (80.0-100.0) fL Neutrophils # 8.2 H (1.3-7.7) k/uL Assessment and Plan Assessment: 59-year-old female postop day 1 from lumbar and sacral decompression with pietro bower. Postoperative management per orthopedic spine surgery Acute blood loss anemia anticipated outcome of surgery -Start slow iron on discharge as patient has had difficulty tolerating iron therapy in the past due to constipation. Patient will also need stool softener/laxative on discharge History of hypertension -Hold Lopressor secondary to relative hypotension -Follow blood pressures Depression -Resume Wellbutrin and Pristiq DVT prophylaxis: SCDs Thank you for allowing us to participate in the care of this pleasant patient. Do not hesitate to contact us with questions. Someone can be reached from the [facility] hospitalist group all hours of the day at [phone] or via p [employer] serve.
[2020-02-21] MEDS: ACETAMINOPHEN TAB 500 MG TAB PO SCH (17:36)
[2020-02-21] MEDS ORDERED: buPROPion XL 300 MG TAB.ER.24H PO SCH (21:00)
[2020-02-21] MEDS ORDERED: MELATONIN 5 MG TABLET PO SCH (21:00)
[2020-02-21 21:02] VITALS: RESP 18
[2020-02-22] MEDS: ACETAMINOPHEN TAB 500 MG TAB PO SCH ×3 (00:10→12:09)
[2020-02-22 05:48] VITALS: BP 103/65; PULSE 83; TEMP 98.1
[2020-02-22 06:45] LABS: HGB 8.7 gm/dL (11.4-16.0); MCH 32.3 pg (25.0-35.0); MCHC 32.3 g/dL (31.0-37.0); MCV 100.1 fL (80.0-100.0); Platelet Count 185 k/uL (150-450); WBC 12.6 k/uL (3.8-10.6)
[2020-02-22] MEDS: LACTATED RINGERS 1,000 ML IV SCH (08:27)
[2020-02-22] MEDS: polyethylene glycoL 3350 17 GM POWD.PACK PO SCH (08:29)
[2020-02-22] MEDS: buPROPion SR 150 MG TABLET.ER PO SCH (08:32)
[2020-02-22] MEDS: GABAPENTIN 300 MG CAP PO SCH (08:32)
[2020-02-22] MEDS: methocarbamoL 750 MG TAB PO SCH ×2 (08:33→12:10)
[2020-02-22] MEDS: METHYLPHENIDATE HCL 10 MG TAB PO SCH (08:33)
[2020-02-22] MEDS: SENNOSIDES-DOCUSATE SODIUM 1 EACH TAB PO SCH (08:33)
--- NOTE | 2020-02-22 08:46 | P.PN ---
Progress Note - Text Progress Note Date: 02/22/20 [facility] Progress Note DOS: 02/20/2020 POD: 2 SUBJECTIVE: Patient seen and examined this morning up and about her room she is doing very well. She states minimal to no pain in her legs. She states minimal pain in her back that is well-controlled with her medications. She is passed all physical therapy milestones. She denies bowel or bladder issues. She has been up to the bathroom several times. She denies any perineal numbness or tingling. OBJECTIVE: Vital signs stable at this time. Hemoglobin dropped to 8.7 however the patient's vital signs are stable and she is asymptomatic. Remainder of labs reviewed in chart General: AOX3, NAD Incision CDI Drain: Discharged today, 50 mL Motor Exam: RUE: 5 SA, EF, EE, WF, WE, Intrinsic, Wrapper Opener LUE: /5 SA, EF, EE, WF, WE, Intrinsic, Wrapper Opener RLE: 5 HF, KE, KF, DF, PF, EHL, FHL LLE: /5 HF, KE, KF, DF, PF, EHL, FH Reflexes: 2/4 in UE and LE b/l SILT C5-T1 and L2-S1 Dermatomal deficit: None +distal pulses palpable Negative hoffmans b/l Negative babinski b/l No clonus ASSESSMENT: 59-year-old female postop day 2 from L4 to S1 posterior stabilized fusion with interbody fusion and decompression PLAN: 1. diet as tolerated 2. Limit lifting bending twisting up and about okay 3. PT/OT, OK for up and about. Brace when up if ordered. No BLTs. No lifting >5lbs 4. TEDs, SCDs, Early ambulation 5. Outpatient hemoglobin check and follow-up with primary care doctor within 3 days 6. Pain control, medications sent to pharmacy 7. Change dressing to Optifoam before leaving. 8. Follow-up in 2 weeks for wound check and staple removal.
[2020-02-22] MEDS ORDERED: DESVENLAFAXINE SUCCINATE 50 MG TAB.ER.24H PO SCH (09:00)
[2020-02-22] MEDS ORDERED: MULTIVITAMINS, THERA 1 EACH TAB PO SCH (09:00)
[2020-02-22] MEDS ORDERED: CALCIUM CARB-VIT D 500MG-200UN 1 EACH TAB PO SCH (09:00)
--- NOTE | 2020-02-22 09:00 | P.DS ---
Providers Date of admission: 02/20/20 07:57 Attending physician: Ricardo Acevedo DO Consults: 02/20/20 17:02 Consult Physician Routine Consulting Provider: Nadira Aponte Consult Reason/Comments: Medical Management Do you want consulting provider notified?: Yes 02/20/20 17:29 Consult Physician Routine Consulting Provider: Nadira Aponte Consult Reason/Comments: medical management Do you want consulting provider notified?: Yes Primary care physician: Stated None Hospital Course: This 59-year-old female presenting to the hospital for a L4 to S1 posterior stabilized fusion with interbody fusion. She underwent a successful procedure and was recovered and transferred to the floor in stable condition. On postoperative day 0 the patient was sitting at bedside. On postoperative day 1 the patient was up and about her pain was controlled she was doing well with physical therapy and walking about the room. Her drain was in place and was putting out about 100 mL 250 mL over the whole day. She denied any new symptoms states that her symptoms before surgery were much better. She denied any headaches and was feeling much better. On postoperative day 2 the patient seen and examined she is up and about her pain was controlled her drain had slowed which was then removed. She stated she was ready to go home and like to go home. Her pain was controlled again she passed physical therapy milestones and is ready for discharge. She was passing gas urinating on her own. She was tolerating her diet and doing well with pain. She denies any fevers chills shortness breath or chest pain at times discharge. She denied headache at times discharge. Assessment: 59-year-old female postop day 2 L4 to S1 posterior stabilized fusion and interbody fusion with decompression, stable for discharge home with home health care with her sister. Procedures: L4 to S1 posterior stabilized fusion with interbody fusion and L4 to S1 decompressive laminectomy. Patient Condition at Discharge: Stable Plan - Discharge Summary Discharge Rx Participant: No New Discharge Prescriptions: New Polyethylene Glycol 3350 [Miralax] 17 gm PO DAILY PRN 10 Days #527 gm PRN Reason: Constipation oxyCODONE HCL [OxyIR] 5 mg PO Q4H PRN #56 tab PRN Reason: Moderate Pain Methocarbamol [Robaxin-750] 750 mg PO TID PRN #40 tablet PRN Reason: Spasms Sennosides/Docusate Sodium [Senna Plus 8.6-50 mg Softgel] 1 each PO BID PRN #30 capsule PRN Reason: Constipation Acetaminophen [Tylenol] 1,000 mg PO Q6H #100 tab Ferrous Sulfate [Slow Fe] 142 mg PO DAILY #30 tablet.er buPROPion SR [Wellbutrin SR] 450 mg PO DAILY tablet.er Continue Methylphenidate HCl [Ritalin] 20 mg PO TID Desvenlafaxine Succinate [Pristiq] 200 mg PO DAILY Calcium 500/ Vit D 25 Mcg 2 tab PO DAILY Magnesium Oxide [Valiente] 500 mg PO DAILY Multivit with Calcium,Iron,Min [Women's Multivitamin] 1 each PO DAILY Discontinued buPROPion SR [Wellbutrin Sr] 450 mg PO DAILY Melatonin 14 mg PO HS No Action Metoprolol Tartrate [Lopressor] 50 mg PO DAILY Discharge Medication List Desvenlafaxine Succinate [Pristiq] 200 mg PO DAILY 01/05/20 [History] Methylphenidate HCl [Ritalin] 20 mg PO TID 01/05/20 [History] Metoprolol Tartrate [Lopressor] 50 mg PO DAILY 01/05/20 [History] Calcium 500/ Vit D 25 Mcg 2 tab PO DAILY 02/15/20 [History] Magnesium Oxide [Valiente] 500 mg PO DAILY 02/15/20 [History] Multivit with Calcium,Iron,Min [Women's Multivitamin] 1 each PO DAILY 02/15/20 [History] Acetaminophen [Tylenol] 1,000 mg PO Q6H #100 tab 02/22/20 [Rx] Ferrous Sulfate [Slow Fe] 142 mg PO DAILY #30 tablet.er 02/22/20 [Rx] Methocarbamol [Robaxin-750] 750 mg PO TID PRN #40 tablet 02/22/20 [Rx] Polyethylene Glycol 3350 [Miralax] 17 gm PO DAILY PRN 10 Days #527 gm 02/22/20 [Rx] Sennosides/Docusate Sodium [Senna Plus 8.6-50 mg Softgel] 1 each PO BID PRN #30 capsule 02/22/20 [Rx] buPROPion SR [Wellbutrin SR] 450 mg PO DAILY tablet.er 02/22/20 [Rx] oxyCODONE HCL [OxyIR] 5 mg PO Q4H PRN #56 tab 02/22/20 [Rx] Ambulatory/Diagnostic Orders: Complete Blood Count w/diff [LAB.AMB] Time Frame: 2 Days, Location: None Se lected Patient Instructions/Handouts: Acetaminophen (By mouth), Methocarbamol (By mouth), Oxycodone, Rapid Release (By mouth), Polyethylene Glycol 3350 (By mouth), Senna (By mouth), Lumbar Spinal Fusion (DC) Activity/Diet/Wound Care/Special Instructions: Spine Discharge and Recovery Instructions Date of Surgery: 02/20/2020 Diagnosis: Severe spondylosis with severe stenosis L4 to S1 Procedure: L4 to S1 posterior stabilized and interbody fusion with decompression Medications: Tylenol 1000 mg every 6 hours, OxyIR 5-10 mg every 4-6 hours when necessary moderate to severe pain, Robaxin 750 mg by mouth 3 times a day when necessary spasm, senna 8.6 mg twice a day when necessary constipation, MiraLAX 17 g daily when necessary constipation, appropriate home medications All medication refills should be obtained through your primary care doctor or your clinic spine surgeon. Please discuss prescription refills at your follow up appointment. Do not call the hospital for medication refills. Dressing: Leave your dressing in place for a total of 5 days post operatively. Then you may remove your dressing and leave open to air. Keep the area clean and if not able to keep area clean, then cover with sterile gauze and tape. Showering: You may shower 3 days after your procedure allowing soap and water to run over incision. Do not scrub. Do not soak. Blot dry. Follow up: Please confirm a follow up appointment with your surgeon 3 weeks post operatively. Please make an appointment to follow up with your primary care physician in 1-2 weeks after surgery for evaluation 3 phase, 3-week plan POST OP WEEKS 1-3 1. Lifting/carrying/pushing/pulling limited to less than 5 pounds. 2. Do not sit for longer than 15 minutes at one time. Get up and walk around. Prolonged sitting is NOT advised. If you lay down, see if you can tolerate laying down on you front (belly side) 3. Walk for periods of 15 minutes = 1 mile but no longer; do it multiple times times each day. 4.Ice your low back after activity. POST OP WEEKS 3-6 1. Lifting limited to less than 20 pounds. 2. Do not sit for longer than 30 minutes at a time. Frequently change positions. Use a sit-to stand workstation or take frequent breaks from sitting if you have returned to work. 3. Walk for 30 minutes each day. If possible, do these three or more times a day POST OP WEEKS 6+ At your 6-week appointment we will give you a physical therapy referral to focus on a core stabilization and strengthening program. You should also work on leg & buttock strengthening, hamstring & quadriceps stretching, and continue a low impact aerobic activity program such as swimming, walking, or riding a stationary bicycle. During the initial 6 weeks after your surgery, you are at the highest risk of re-injuring your spine. You should generally avoid BLTs (bending, lifting and twisting combination motions) and follow the above guidelines to reduce the chance of reinjury. You can anticipate post op appointments in our office at approximately 3 weeks and 6 weeks after your surgery. INCISION CARE: If your incision is not draining you do NOT need to cover it with a dressing. Keep your incision clean, dry and intact. In most cases, we apply skin glue, josi or sutures to the incision at the time of surgery. This will be like a crust or have the appearance of a scab and will fall off in time on its own. The stitches or josi need to be removed at 3 weeks post op appointment. You may begin to shower 3 days after surgery (th is allows the glue to landeros well). However, please avoid scrubbing the incision site or peeling off any of the skin glue. This will ensure optimal healing of your incision. Also, during this time avoid soaking the incision area in water - this includes swimming pools, hot tubs or baths. No ointments, lotions or oils on the incision until your surgeon allows. Leave josi, sutures or glue in place. Neurological dysfunction that comes on suddenly can also be a sign of a stroke. Below some common symptoms of a stroke are listed: B - balance difficulty such as sudden onset walking or leaning to one side - NEW E - eye problem such as sudden double vision or trouble seeing on one side - NEW F - Facial weakness or numbness on one side - NEW A - Arm or leg weakness or numbness on one side - NEW S - Slurred speech or difficulty with word finding - NEW T - Time is BRAIN! Call 911 as soon as you recognize these symptoms Diet: Consume a regular diet rich in vegetables and lean protein such as chicken or fish. You should consume in a ratio of approximately 20% fats|40% carbohydrates|40%protein. Vegetables, sweet potatoes, brown rice or quinoa are examples of good carbohydrates. Chips, white bread, cookies and sweets/sugar are examples of bad carbohydrates. Limit your bad carbs, go wild with good carbs. "Life's Simple 7" Guidelines as per [place] [employer] These will help you reclaim your life after surgery and slitting machine operator helper in your recover y, keeping in mind your restrictions. (1) Get Active. Physical activity can help people lose weight, control high blood pressure and cholesterol, feel emotionally better, and sleep better. (2) Control Cholesterol. Avoid a diet high in saturated fat, trans fat, & cholesterol. Limit whole milk & cream, ice cream, butter, egg yolks, processed meats (like sausage and hot dogs), and fatty meats. Choose healthy foods that are low in saturated fat, trans fat and cholesterol which include: Fruits and vegetables, fiber rich grain products (like whole grain pasta and brown rice), lean meat such as chicken, fish, nuts, seeds, and legumes. (3) Eat Better. Eat small portions. Shop at the grocery with a list and do not stray from it. Tips for a healthy diet include: Limit sodium intake to less than 1500mg daily, avoid prepackaged, processed, and fast foods, choose a diet rich in fruits, vegetables, and whole grain, high fiber foods, and limit saturated & cholesterol in your diet. (4) Manage Blood Pressure. If you have high blood pressure, you should have a cuff at home so that you can check your blood pressure regularly. Be sure you have a good cuff. An arm one is generally better than a wrist one. Bring the cuff to a doctor's appointment to validate that the measurements that your cuff are taking are accurate. Take your blood pressure twice daily when you are sitting down and relaxing. Record the numbers in a log and bring this log with you to your doctors' appointments. (5) Lose Weight if your BMI is above 25. A healthy BMI is between 19-25. To calculate Your BMI, you may use a Standard BMI Calculator on the NIH BMI website: <www.nhlbi.nih.gov/guidelines/obesity/BMI/bmicalc.htm>. Weigh oneself daily. If you are overweight, set a goal to lose weight. A pound a week loss if needed is a good target. (6) Reduce Blood Sugar. Limit foods and liquids with "added sugars." (Added sugars include sucrose, fructose, glucose, maltose, dextrose, high fructose corn syrup, corn syrup, concentrated fruit juice and honey). (7) Stop Smoking. If you smoke, quitting smoking is one of the best things that you can do for your health. Smoking increases your risk of heart attack, stroke, and peripheral vascular disease, which is a build-up of plaque in your arteries. Please discard all the cigarettes and lighters in your house. Have a plan for what you will do when you have the urge to smoke. Direct and second- hand smoke shortens your life as well as the lives of your family, friends and others around you. For your health and the health of those around you, please consider quitting! Proper Bending Body Mechanics: Maintain a wide stance with one foot slightly in front of the other. Keep your back straight. Bend utilizing the strength in your hips and knees. Do not bend at the waist. Maintain the lifted object at your waist-level close to your body. Avoid lifting weight that causes immediately pain or pain anywhere in the body afterwards. Smoking/Nicotine If there was ever one thing that you could do to increase your overall health, decrease your risk of cardiovascular problems by about 39% the second you make the choice, it is to STOP SMOKING. Your body's most instant gratification is the second you stop smoking. We have all heard the studies, read the articles but it is true, smoking is extremely bad for your overall health, and moreover it is detrimental to your bone health. Nicotine, IN ANY FORM, kills bone cells, prevents your body from healing fractures, and significantly prolongs healing after surgery. In spine surgery specifically, it increases your risk of not healing your bones to create a fusion and increases your risk of having a revision surgery due to this up to 60%. I know it is hard. I know it feels impossible. But there are ways. Take control of your life. We are here to help you through it. And when you are ready, ask us and we can direct you to help if you desire. Use the START Plan to Quit Smoking (please visit the Helpguide.org website listed below for more information): S = Set a quit date. Choose a date within the next 2 weeks, so you have enough time to prepare without losing your motivation to quit. If you mainly smoke at work, quit on the weekend, so you have a few days to adjust to the change. T = Tell family, friends, and co-workers that you plan to quit. Let your friends and family in on your plan to quit smoking and tell them you need their support and encouragement to stop. Look for a quit olimpia who wants to stop smoking as well. You can help each other get through the rough times. A = Anticipate and plan for the challenges you'll face while quitting. Most people who begin smoking again do so within the first 3 months. You can help yourself make it through by preparing ahead for common challenges, such as nicotine withdrawal and cigarette cravings. R = Remove cigarettes and other tobacco products from your home, car, and work. Throw away all your cigarettes (no emergency pack!), lighters, ashtrays, and matches. Wash your clothes and freshen up anything that smells like smoke. Shampoo your car, clean your drapes and carpet, and steam your furniture. T = Talk to your doctor about getting help to quit. Your doctor can prescribe medication to help with withdrawal and suggest other alternatives. If you can't see a doctor, you can get many products over the counter at your local pharmacy or grocery store, including the nicotine patch, n icotine lozenges, and nicotine gum. Resources for Quitting Smoking: <https://www.[place].gov/documents/[facility]/Quit_Tobacco_Resources_for_patients_313 480_7.pdf> Supplementation: Take recommended dosages of Vitamin D and Calcium to help fortify your bones and help them to heal. See your health maintenance packet for dosages and recom mended levels. DVT/VTE prophylaxis: You will be given compression stockings from the hospital. Wear these daily for the first two weeks after surgery. You may take them off at night. You may be prescribed a medication to help thin your blood. Take this as directed. If you are not prescribed this medication, early and frequent ambulation has been shown to be the best prophylaxis to deep vein thrombosis and sequelae related to this event. Discharge Disposition: HOME WITH HOME HEALTH SERVICES
[2020-02-22 09:45] LABS: African American GFR (CKD) 108.4 (60.0-200.0); Anion Gap 4.4 mmol/L (4.00-12.00); BUN/Creat Ratio 15.71 Ratio (12.00-20.00); Calcium 8.1 mg/dL (8.7-10.3); Carbon Dioxide 35.6 mmol/L (21.6-31.8); Non-African American GFR(CKD) 93.5 (60.0-200.0); Potassium 3.6 mmol/L (3.5-5.5)
--- NOTE | 2020-02-22 11:30 | P.PN ---
Subjective Progress Note Date: 02/22/20 (delayed charting seen at 0930) Principal diagnosis: back pain Patient is a 59-year-old female with hypertension, depression, and arthritis who presented for elective lumbar decompression and fusion. She tolerated the procedure well. Increased blood loss during the procedure. Patient seen and examined at bedside. Pain is well controlled. She's been up and walking. No lightheadedness, dizziness, or chest discomfort. She is aware that she has to have repeat CBC drawn in 2-3 days. That she should take iron from one month. States upon her stool softeners. Objective - Vital Signs Vital signs: Vital Signs Temp 98.1 F 02/22/20 05:00 Pulse 83 02/22/20 05:00 Resp 18 02/22/20 05:00 BP 103/65 02/22/20 05:00 Pulse Ox 93 L 02/22/20 05:00 Intake & Output 02/21/20 02/22/20 02/22/20 18:59 06:59 18:59 Intake Total 1500 200 Output Total 1820 30 Balance -320 170 Intake: Oral 1500 200 Output: Drainage 20 30 Lower Back 20 30 Urine 1800 Uretheral (Guzmán) 900 Other: Voiding Method Indwelling Catheter Toilet # Voids 3 1 - Exam General: non toxic, no distress, appears at stated age Derm: warm, dry Head: atraumatic, normocephalic, symmetric Eyes: EOMI, no lid lag, anicteric sclera Mouth: no lip lesion, mucus membranes moist Cardiovascular: S1S2 reg, no murmur, positive posterior tibial pulse bilateral, Lungs: CTA bilateral, no rhonchi, no rales , no accessory muscle use Abdominal: soft, nontender to palpation, no guarding, no appreciable organomegaly Ext: no gross muscle atrophy, trace edema, no contractures Neuro: CN II-XI grossly intact, no focal neuro deficits Psych: Alert, oriented, anxious and animated - Labs CBC & Chem 7: 02/22/20 06:23 02/22/20 06:23 Labs: Abnormal Lab Results - Last 24 Hours (Table) 02/22/20 02/22/20 Range/Units 06:23 06:23 WBC 12.6 H (3.8-10.6) k/uL RBC 2.70 L (3.80-5.40) m/uL Hgb 8.7 L (11.4-16.0) gm/dL Hct 27.0 L (34.0-46.0) % MCV 100.1 H (80.0-100.0) fL Carbon Dioxide 35.6 H (21.6-31.8) mmol/L Calcium 8.1 L (8.7-10.3) mg/dL Assessment and Plan Assessment: 59-year-old female postop day 1 from lumbar and sacral decompression with fusion. Postoperative management per orthopedic spine surgery Acute blood loss anemia anticipated outcome of surgery -Start slow iron on discharge as patient has had difficulty tolerating iron therapy in the past due to constipation. Patient will also need stool softener/laxative on discharge. Leukocytosis, reactive - repeat CBC in 2 days History of hypertension -resume lopressor on discharge -Follow blood pressures Depression -Resume Wellbutrin and Pristiq DVT prophylaxis: SCDs Case discussed with Dr. Acevedo Medically optimized for discharge. Prescription for iron added to discharge tab. Order for blood work added to discharge.
== END 2020-02-22 12:58 | disposition home health service (06) | DRG 454 ==
LOC: 2ORMAIN 02-20 07:57 → 6NMEDSUR 02-20 17:07
PROVIDERS: ADMIT Orthopaedic Surgery; ATTEND Orthopaedic Surgery
PROC: 0SG0071 Fusion of Lumbar Vertebral Joint with Autologous Tissue Substitute, Posterior Approach, Posterior Column, Open Approach (ICD-10-PCS; 2020-02-20)
PROC: 0SG30AJ Fusion of Lumbosacral Joint with Interbody Fusion Device, Posterior Approach, Anterior Column, Open Approach (ICD-10-PCS; 2020-02-20)
PROC: 0SG3071 Fusion of Lumbosacral Joint with Autologous Tissue Substitute, Posterior Approach, Posterior Column, Open Approach (ICD-10-PCS; 2020-02-20)
PROC: 01NB0ZZ Release Lumbar Nerve, Open Approach (ICD-10-PCS; 2020-02-20)
PROC: 0SG00AJ Fusion of Lumbar Vertebral Joint with Interbody Fusion Device, Posterior Approach, Anterior Column, Open Approach (ICD-10-PCS; principal; 2020-02-20 09:15)
DX: M48.062 Spinal stenosis, lumbar region with neurogenic claudication (principal); D62 Acute posthemorrhagic anemia; I95.9 Hypotension, unspecified; M47.26 Other spondylosis with radiculopathy, lumbar region; M48.07 Spinal stenosis, lumbosacral region; M47.27 Other spondylosis with radiculopathy, lumbosacral region; I10 Essential (primary) hypertension; F32.9 Major depressive disorder, single episode, unspecified; F90.9 Attention-deficit hyperactivity disorder, unspecified type; M43.16 Spondylolisthesis, lumbar region; K59.00 Constipation, unspecified; D72.829 Elevated white blood cell count, unspecified; Z79.899 Other long term (current) drug therapy; Z87.81 Personal history of (healed) traumatic fracture; Z98.890 Other specified postprocedural states; Z87.442 Personal history of urinary calculi; Z90.710 Acquired absence of both cervix and uterus; Z90.49 Acquired absence of other specified parts of digestive tract; Z87.891 Personal history of nicotine dependence; Z83.3 Family history of diabetes mellitus; Z80.3 Family history of malignant neoplasm of breast
CPT/HCPCS: 72100; 72131; 80048; 85025; 85027; 86850; 86891; 86900; 86901

== ENCOUNTER → 2020-07-24 | Outpatient (CLI) | payer OTHER ==
--- NOTE | 2020-07-26 19:14 | MR ---
EXAMINATION TYPE: MR shoulder LT wo con DATE OF EXAM: 07/24/2020 COMPARISON: None HISTORY: Left shoulder pain for several years. Limited range of motion. TECHNIQUE: Multiplanar, multisequence imaging of the left shoulder is performed without contrast. FINDINGS: Rotator Cuff: Subchondral cysts near the insertion site of the supraspinatus tendon. No tendon or mus camilla retraction is evident. Perforation however be difficult to exclude a partial tear of the infraspi natus measuring 1.3 cm may be present this may be an undersurface tear. Series 601 image 12. Acromioclavicular Joint: Hypertrophy with superior spurring. Glenohumeral Joint: Humeral head articulates with the glenoid. Labrum: Appears to be some truncation of the glenoid labrum suggesting chronic degenerative changes o r old injury. Biceps Tendon: The long head of biceps is in normal location within bicipital groove. Small amount fl uid is adjacent to the tendon Bone marrow signal: No focal abnormal marrow signal is appreciated. Other: There is a moderate joint effusion present. IMPRESSION: 1. Tendon injury or undersurface tear of the infraspinatus tendon. 2. Distal supraspinatus tendon injury less likely but should be considered. 3. Moderate joint effusion. 4 acromioclavicular joint hypertrophy. 5. Degenerative changes through the glenoid labrum
== END | disposition home or self-care (01) ==
LOC: RADMRIMAIN 18:07
PROVIDERS: ATTEND Orthopaedic Surgery
DX: M19.012 Primary osteoarthritis, left shoulder (principal); M89.312 Hypertrophy of bone, left shoulder; M25.412 Effusion, left shoulder

== ENCOUNTER → 2020-08-21 | Outpatient (CLI) | payer OTHER ==
--- NOTE | 2020-08-21 07:34 | US ---
EXAMINATION TYPE: US liver DATE OF EXAM: 08/21/2020 COMPARISON: NONE CLINICAL HISTORY: R94.5 Abnormal liver test. Liver cyst gb removed EXAM MEASUREMENTS: Liver Length: 14.6 cm Gallbladder Wall: Surgically absent cm CBD: .5 cm Right Kidney: 10.8 x 3.8 x 4.5 cm Pancreas: wnl Liver: wnl Gallbladder: Surgically absent Evidence for sonographic Newman's sign: No CBD: wnl Right Kidney: wnl IMPRESSION: No significant abnormality seen.
== END | disposition home or self-care (01) ==
LOC: RADUSWWP 07:00
PROVIDERS: ATTEND Family Medicine
DX: R94.5 Abnormal results of liver function studies (principal)
CPT/HCPCS: 76705

== ENCOUNTER → 2020-08-22 | Outpatient (CLI) | payer OTHER ==
--- NOTE | 2020-09-19 10:24 | MM ---
Reason for exam: screening (asymptomatic). Last mammogram was performed 1 year and 2 months ago. History: Patient is postmenopausal. Family history of breast cancer in sister at age 58. Took hormonal contraceptives for 5 years. Took estrogen for 5 years. Took progesterone for 5 years. Physical Findings: A clinical breast exam by your physician is recommended on an annual basis and results should be correlated with mammographic findings. MG Screening Mammo w CAD Bilateral CC and MLO view(s) were taken. Prior study comparison: June 13, 2019, mammogram, performed at [place]. April 06, 2018, mammogram, performed at [place]. The breast tissue is heterogeneously dense. This may lower the sensitivity of mammography. There are benign appearing round calcifications in the left breast. There is no discrete abnormality. ASSESSMENT: Benign, BI-RAD 2 RECOMMENDATION: Routine screening mammogram of both breasts in 1 year.
== END | disposition home or self-care (01) ==
LOC: RADMAMWWP 07:09
PROVIDERS: ATTEND Family Medicine
DX: Z12.31 Encounter for screening mammogram for malignant neoplasm of breast (principal); Z78.0 Asymptomatic menopausal state; Z80.3 Family history of malignant neoplasm of breast
CPT/HCPCS: 77067

== ENCOUNTER 2020-09-07 10:42 | Emergency (ER) | payer OTHER ==
[2020-09-07 10:46] VITALS: RESP 18; TEMP 98
[2020-09-07 11:39] LABS: Basophils # (A) 0.1 k/uL (0-0.2); Basophils % (A) 1 %; Eosinophils # (A) 0.2 k/uL (0-0.7); Eosinophils % (A) 4 %; HCT 41.3 % (34.0-46.0); HGB 13.9 gm/dL (11.4-16.0); Lymphocytes # (A) 1.4 k/uL (1.0-4.8); Lymphocytes % (A) 23 %; MCH 31.2 pg (25.0-35.0); MCHC 33.7 g/dL (31.0-37.0); MCV 92.5 fL (80.0-100.0); Mean Platelet Volume 6.7; Monocytes # (A) 0.4 k/uL (0-1.0); Monocytes % (A) 7 %; Neutrophils # (A) 3.7 k/uL (1.3-7.7); Neutrophils % (A) 63 %; Platelet Count 352 k/uL (150-450); RBC 4.47 m/uL (3.80-5.40); RDW 13.9 % (11.5-15.5); WBC 5.8 k/uL (3.8-10.6)
--- NOTE | 2020-09-07 11:49 | XR ---
EXAMINATION TYPE: XR chest 2V DATE OF EXAM: 09/07/2020 COMPARISON: NONE TECHNIQUE: PA and lateral views submitted. HISTORY: Hypertension FINDINGS: The lungs are clear and there is no pneumothorax, pleural effusion, or focal pneumonia. Postsurgica l change overlying the vertebral column. Heart size normal. There is a nodule in the left upper lobe measuring 1.1 cm. IMPRESSION: 1. No acute process. There is a 1.1 cm left upper lobe nodule. Recommend short-term follow-up CT of t he chest
[2020-09-07 11:54] LABS: ALT 30 U/L (4-34); AST 39 U/L (14-36); African American GFR (CKD) >90 (>60 ml/min/1.73 sqM); Albumin 4.3 g/dL (3.5-5.0); Alkaline Phosphatase 79 U/L (38-126); Anion Gap 5 mmol/L; Blood Urea Nitrogen 20 mg/dL (7-17); Calcium 9.1 mg/dL (8.4-10.2); Carbon Dioxide 30 mmol/L (22-30); Chloride 103 mmol/L (98-107); Glucose 102 mg/dL (74-99); Non-African American GFR(CKD) >90 (>60 ml/min/1.73 sqM); Potassium 3.8 mmol/L (3.5-5.1); Sodium 138 mmol/L (137-145); Total Bilirubin 0.7 mg/dL (0.2-1.3); Total Protein 7.6 g/dL (6.3-8.2)
[2020-09-07 12:00] VITALS: PULSE 64
[2020-09-07] MEDS ORDERED: cloNIDine HCL 0.1 MG TAB PO STA (12:11)
--- NOTE | 2020-09-07 12:51 | ED ---
General Adult HPI - General Chief complaint: Recheck/Abnormal Lab/Rx Stated complaint: High Blood Pressure Time Seen by Provider: 09/07/20 10:55 Source: patient, RN notes reviewed Mode of arrival: ambulatory Limitations: no limitations - History of Present Illness Initial comments: 60-year-old female with a past medical history of depression, kidney stones, hypertension presents to the emergency room for a chief complaint of not feeling well. Patient reports that she felt like she missed one of her depression medications and just felt that a fog. She reports that she took her blood pressure and it was elevated and this is ultimately what prompted her to come to the emergency room. Patient also complains of muscle aches in her legs but states this is chronic in nature. It is somewhat worse over the past couple days and it has been in the past. Patient has no other complaints at this time including shortness of breath, chest pain, abdominal pain, nausea or vomiting, headache, or visual changes. - Related Data Home Medications Medication Instructions Recorded Confirmed Desvenlafaxine Succinate [Pristiq] 200 mg PO DAILY 01/05/20 02/20/20 Methylphenidate HCl [Ritalin] 20 mg PO TID 01/05/20 02/20/20 Metoprolol Tartrate [Lopressor] 50 mg PO DAILY 01/05/20 02/20/20 Calcium 500/ Vit D 25 Mcg 2 tab PO DAILY 02/15/20 02/20/20 Magnesium Oxide [Valiente] 500 mg PO DAILY 02/15/20 02/20/20 Multivit with Calcium,Iron,Min 1 each PO DAILY 02/15/20 02/20/20 [Women's Multivitamin] Previous Rx's Medication Instructions Recorded Acetaminophen [Tylenol] 1,000 mg PO Q6H #100 tab 02/22/20 Ferrous Sulfate [Slow Fe] 142 mg PO DAILY #30 tablet.er 02/22/20 Methocarbamol [Robaxin-750] 750 mg PO TID PRN #40 tablet 02/22/20 Polyethylene Glycol 3350 [Miralax] 17 gm PO DAILY PRN 10 Days #527 gm 02/22/20 Sennosides/Docusate Sodium [Senna 1 each PO BID PRN #30 capsule 02/22/20 Plus 8.6-50 mg Softgel] buPROPion SR [Wellbutrin SR] 450 mg PO DAILY tablet.er 02/22/20 oxyCODONE HCL [OxyIR] 5 mg PO Q4H PRN #56 tab 02/22/20 Allergies Allergy/AdvReac Type Severity Reaction Status Date / Time No Known Allergies Allergy Verified 09/07/20 10:46 Review of Systems ROS Statement: Those systems with pertinent positive or pertinent negative responses have been documented in the HPI. ROS Other: All systems not noted in ROS Statement are negative. Past Medical History Past Medical History: Hypertension, Osteoarthritis (OA) Additional Past Medical History / Comment(s): Depression, Hx fracture of thoracic spine 2011 with surgery , kidney stones., states recent elevated bloodpressure due to stress. History of Any Multi-Drug Resistant Organisms: None Reported Past Surgical History: Cholecystectomy, Hysterectomy, Orthopedic Surgery Additional Past Surgical History / Comment(s): carpal tunnel bilateral, parath yoidectomy (d/t growth), back surgey, 2011 fracture with pin and plate in spine thoracic ([place]), 2013 sciatic nerve release. Past Anesthesia/Blood Transfusion Reactions: Previous Problems w/ Anesthesia, Motion Sickness Additional Past Anesthesia/Blood Transfusion Reaction / Comment(s): states trachial spasms in 1990- no problems since then. Past Psychological History: ADD/ADHD, Depression Smoking Status: Former smoker, Smoker, current status unknown Past Alcohol Use History: Daily Past Drug Use History: None Reported - Past Family History Father Family Medical History: Cancer, Diabetes Mellitus Additional Family Medical History / Comment(s): bone cancer Sister(s) Family Medical History: Cancer Additional Family Medical History / Comment(s): Breast cancer General Exam Limitations: no limitations General appearance: alert, in no apparent distress Head exam: Present: atraumatic, normocephalic, normal inspection Eye exam: Present: normal appearance, PERRL, EOMI. Absent: scleral icterus, conjunctival injection, periorbital swelling ENT exam: Present: normal exam, mucous membranes moist Neck exam: Present: normal inspection, full ROM. Absent: tenderness, meningismus, lymphadenopathy Respiratory exam: Present: normal lung sounds bilaterally. Absent: respiratory distress, wheezes, rales, rhonchi, stridor Cardiovascular Exam: Present: regular rate, normal rhythm, normal heart sounds. Absent: systolic murmur, diastolic murmur, rubs, gallop, clicks GI/Abdominal exam: Present: soft, normal bowel sounds. Absent: distended, tenderness, guarding, rebound, rigid Course Vital Signs 09/07/20 09/07/20 09/07/20 10:44 11:59 12:57 Temperature 98 F Pulse Rate 84 64 Respiratory 18 18 Rate Blood Pressure 185/110 175/114 169/109 O2 Sat by Pulse 99 98 Oximetry 09/07/20 13:19 Temperature Pulse Rate Respiratory Rate Blood Pressure 146/101 O2 Sat by Pulse Oximetry EKG Findings - EKG Comments: EKG Findings:: Normal sinus rhythm, ventricular rate 68, [place] interval 178, QTc 448 Medical Decision Making - Medical Decision Making Patient presents hypertensive. She did take her blood pressure medication this morning. EKG is unremarkable. No evidence of ischemia. Patient denies chest pain. CBC was obtained which is unremarkable. CMP does show some evidence of dehydration however patient does not want any fluids stating that she drinks plenty of water. Patient does have a nodule on chest x-ray that she states she is getting a CAT scan for next week. Patient's blood pressure was rechecked she continues to be hypertensive. She was given a dose of oral clonidine which did improve her BP. patient states she feels much improved at this point. she is stable for discharge home. - Lab Data Result diagrams: 09/07/20 11:33 09/07/20 11:33 Lab Results 09/07/20 09/07/20 Range/Units 11:33 11:33 WBC 5.8 (3.8-10.6) k/uL RBC 4.47 (3.80-5.40) m/uL Hgb 13.9 (11.4-16.0) gm/dL Hct 41.3 (34.0-46.0) % MCV 92.5 (80.0-100.0) fL MCH 31.2 (25.0-35.0) pg MCHC 33.7 (31.0-37.0) g/dL RDW 13.9 (11.5-15.5) % Plt Count 352 (150-450) k/uL MPV 6.7 Neutrophils % 63 % Lymphocytes % 23 % Monocytes % 7 % Eosinophils % 4 % Basophils % 1 % Neutrophils # 3.7 (1.3-7.7) k/uL Lymphocytes # 1.4 (1.0-4.8) k/uL Monocytes # 0.4 (0-1.0) k/uL Eosinophils # 0.2 (0-0.7) k/uL Basophils # 0.1 (0-0.2) k/uL Sodium 138 (137-145) mmol/L Potassium 3.8 (3.5-5.1) mmol/L Chloride 103 (98-107) mmol/L Carbon Dioxide 30 (22-30) mmol/L Anion Gap 5 mmol/L BUN 20 H (7-17) mg/dL Creatinine 0.61 (0.52-1.04) mg/dL Est GFR (CKD-EPI)AfAm >90 (>60 ml/min/1.73 sqM) Est GFR (CKD-EPI)NonAf >90 (>60 ml/min/1.73 sqM) Glucose 102 H (74-99) mg/dL Calcium 9.1 (8.4-10.2) mg/dL Magnesium 2.0 (1.6-2.3) mg/dL Total Bilirubin 0.7 (0.2-1.3) mg/dL AST 39 H (14-36) U/L ALT 30 (4-34) U/L Alkaline Phosphatase 79 (38-126) U/L Total Protein 7.6 (6.3-8.2) g/dL Albumin 4.3 (3.5-5.0) g/dL Disposition Clinical Impression: Hypertension Disposition: HOME SELF-CARE Condition: Good Instructions (If sedation given, give patient instructions): Hypertension (ED) Additional Instructions: Please follow-up with your doctor in one to 2 days. Take a log of your blood pressures to show to her doctor by checking this once or twice daily. Return to the emergency room for any worsening symptoms. Is patient prescribed a controlled substance at d/c from ED?: No Referrals: Mary Rosas MD [Primary Care Provider] - 1-2 days Time of Disposition: 12:50
[2020-09-07 13:20] VITALS: BP 146/101
== END 2020-09-07 13:42 | disposition home or self-care (01) ==
LOC: EC 10:42
DX: I10 Essential (primary) hypertension (principal); M79.18 Myalgia, other site; F32.9 Major depressive disorder, single episode, unspecified; M19.90 Unspecified osteoarthritis, unspecified site; Z87.442 Personal history of urinary calculi; Z87.891 Personal history of nicotine dependence; Z79.899 Other long term (current) drug therapy
CPT/HCPCS: 36415; 71046; 80053; 83735; 85025; 93005; 99284

== ENCOUNTER → 2020-09-16 | Outpatient (CLI) | payer OTHER ==
--- NOTE | 2020-09-16 10:31 | CT ---
EXAMINATION TYPE: CT chest wo con DATE OF EXAM: 09/16/2020 COMPARISON: Chest x-ray 9 days ago HISTORY: follow up abnormal prior exam, high resolution protocol. CT DLP: 442.1 mGycm. Automated Exposure Control for Dose Reduction was Utilized. TECHNIQUE: CT scan of the thorax is performed without IV contrast. High resolution protocol with 1 m m sequences obtained at 10 mm intervals in supine and prone technique FINDINGS: LUNGS: No significant peripheral reticulation and fibrosis identified bilaterally. Corresponding to x -ray concern there is calcified 7 mm nodule or benign granuloma in the left upper lobe image 6 series 8. Technique is noted to lower evaluation for subcentimeter nodules. No obvious mass. No pleural eff usion. No bronchiectasis. MEDIASTINUM: Lack of IV contrast and technique are both noted to limit evaluation for mediastinal and especially hilar adenopathy. There are no definitive greater than 1 cm mediastinal lymph nodes. No cardiomegaly or pericardial effusion is seen. At least moderate coronary calcification. Ectatic asce nding aorta up to 3.8 cm in diameter OTHER: Cholecystectomy clips. Postsurgical change to the thoracolumbar spine partially imaged. IMPRESSION: No significant acute or chronic pulmonary process.
== END | disposition home or self-care (01) ==
LOC: RADCTMAIN 09:16
PROVIDERS: ATTEND Family Medicine
DX: R91.8 Other nonspecific abnormal finding of lung field (principal)
CPT/HCPCS: 71250

== ENCOUNTER → 2022-04-09 | Outpatient (CLI) | payer MEDICARE ==
--- NOTE | 2022-04-09 11:11 | CT ---
EXAMINATION TYPE: CT abdomen pelvis wo con CT DLP: 539 mGycm, Automated exposure control for dose reduction was used. DATE OF EXAM: 04/09/2022 8:33 AM COMPARISON: None CLINICAL INDICATION:Female, 62 years old with history of R31.0; History of renal stones, right sided pain TECHNIQUE: Axial CT of the abdomen and pelvis. Sagittal and coronal reformats were created on a [employer] workstation. Contrast used: None Oral contrast used: without Oral Contrast FINDINGS: LOWER CHEST: Unremarkable ABDOMEN LIVER: Unremarkable GALLBLADDER AND BILE DUCTS: The gallbladder is surgically absent. PANCREAS: Unremarkable. SPLEEN: Unremarkable. ADRENAL GLANDS: Unremarkable. KIDNEYS AND URETERS: Bilateral nonobstructing renal calculi measuring up to 3 mm bilaterally. PELVIS BLADDER: Unremarkable REPRODUCTIVE: Uterus is not visualized and may be surgically absent. ABDOMEN & PELVIS STOMACH AND BOWEL: No evidence of bowel obstruction. PERITONEUM: No evidence of pneumoperitoneum or free fluid. VASCULATURE: No evidence of aortic aneurysm. Atherosclerosis of the arterial vasculature. MUSCULOSKELETAL: No acute osseous abnormalities, fixation changes in the lower spine. Hardware appear s intact. LYMPH NODES: No gross evidence for lymphadenopathy. SOFT TISSUE/ABDOMINAL WALL: Unremarkable IMPRESSION: 1. Bilateral nonobstructing renal calculi. No evidence of hydronephrosis. Normal appendix. No acute intra-abdominal process.
== END | disposition home or self-care (01) ==
LOC: RADCTMAIN 08:15
PROVIDERS: ATTEND Urology
DX: N20.0 Calculus of kidney (principal); N23 Unspecified renal colic
CPT/HCPCS: 74176

== ENCOUNTER → 2022-09-09 | Outpatient (CLI) | payer MEDICARE, OTHER | END | disposition home or self-care (01) | LOC: LABPAT 13:17 | PROVIDERS: ATTEND Orthopaedic Surgery | DX: Z01.812 Encounter for preprocedural laboratory examination (principal); Z22.322 Carrier or suspected carrier of Methicillin resistant Staphylococcus aureus | CPT/HCPCS: 87070 ==

== ENCOUNTER 2022-09-14 06:27 | Inpatient (IN) | payer MEDICARE, OTHER ==
--- NOTE | 2022-09-13 16:58 | P.HPOR ---
History of Present Illness H&P Date: 09/07/22 .D:Date: 09/07/22 : 10:29am .T:Title: *[facility] Date of :[birth year] R14Age: 61 year Height: 5'2" Weight: 150 lbs BMI: 27.44 kg/m2 Occupation: Retired/Disabled VAS: 3 CHIEF COMPLAINT: preoperative appointment DOI: Chronic DOS: 02/20/2020 HISTORY: Xrays New Xrays in office. New MRI due to severe progressive weakness sx Trauma or injury No Work-Related No Pain description burning Location diffuse Low back Activity Modification yes , unable to stand or ambulate for extended periods of time. >3 weeks trial Hand Dominance right TREATMENTS COMPLETED: 6 weeks of PT completed? Yes, trialed another round of PT, only made it 3 visits and she was unable to complete any more due to pain and weakness. Did it help? No Physician directed home exercise completed? Yes , without improvements. Medications Yes List: Advil, medrol dosepak without relief >12 week trials Alternative interventions Chiropractic: No Massage therapy: No Brace: No Injections No RFA:No SUBJECTIVE: Today Ms. Leslie Reis presents to the office for a recheck of her lumbar spine. Since the time of the last appointment the patient reports that her lower extremity symptoms have continued to persist. She reports that her left foot, specifically the great toe and second digit are very painful and has a continued "cold feeling". With this she does also report intermittent numbness/tingling about the bilateral lower extremities that worsen with prolonged standing and ambulation. Both of her legs are symptomatic but she notes that the right is worse than the left. She does also report pinpoint pain about the left side of the . Due to her lower extremity symptoms she notes that she is having continued issue with completing her daily activities. The patient did have an Lumbar MRI ordered by neurologist but this is unable to view at today's office visit. She does have a history of a L4-S1 fusion from 02/20/2020. Otherwise she does also report seeing several other specialists regarding this issue including a site head and recenterer without any improvements. Patient denies any bladder or bowel retention/incontinence, no perineal numbness/tingling, and ambulates independently. HPI: Ms. Leslie Reis presents to the office on 07/31/2022 for a recheck of her lumbar spine. Since the time of the last appointment the patient reports that her lower extremity symptoms have continued to persist. She reports that her left foot, specifically the great toe and second digit are very painful and has a continued "cold feeling". With this she does also report intermittent numbness/tingling about the bilateral lower extremities that worsen with prolonged standing and ambulation. Both of her legs are symptomatic but she notes that the right is worse than the left. She does also report pinpoint pain about the left side of the . Due to her lower extremity symptoms she notes that she is having continued issue with completing her daily activities. The patient did have an Lumbar MRI ordered by neurologist but this is unable to view at today's office visit. She does have a history of a L4-S1 fusion from 02/20/2020. Otherwise she does also report seeing several other specialists regarding this issue including a site head and recenterer without any improvements. Patient denies any bladder or bowel retention/incontinence, no perineal numbness/tingling, and ambulates independently. Today Ms. Leslie Reis presents via telehealth on 07/13/2022 for a recheck of her lumbar spine. Since the time of the last appointment the patient reports that her lower extremity symptoms have continued to persist. She reports that her left foot, specifically the great toe and second digit are very painful and has a continued "cold feeling". With this she does also report intermittent numbness/tingling about the bilateral lower extremities that worsen with prolonged standing and ambulation. Both of her legs are symptomatic but she notes that the right is worse than the left. She does also report pinpoint pain about the left side of the . Due to her lower extremity symptoms she notes that she is having continued issue with completing her daily activities. The patient did have an Lumbar MRI ordered by neurologist but this is unable to view at today's office visit. She does have a history of a L4-S1 fusion from 02/20/2020. Otherwise she does also report seeing several other specialists regarding this issue including a site head and recenterer without any improvements. Patient denies any bladder or bowel retention/incontinence, no perineal numbness/tingling, and ambulates independently. The patients' past social, medical, family, surgical history, as well as review of systems, have been reviewed. Please refer to the Neurosurgery History and Physical form that has been scanned in to our electronic medical record system. 14 points review of systems completed and as stated in HPI, all other systems reviewed are negative. Social History: Reviewed, see appropriate section of the chart for details. P3 Social History: Smoking: never a smoker P3 Alcohol: currently drinks alcohol P3 Alcohol Amount: 2-3 drinks/wk Family History: Reviewed, see appropriate section of the chart for details. P2 Past Medical History: Reviewed, see appropriate section of the chart for details. P1 Current Medications: Rx: Ritalin 20 mg tablet Ref: 0 Rx: Wellbutrin XL 300 mg 24 hr tablet, extended release Ref: 0 Rx: presute , Ref: 0 PHYSICAL EXAMINATION: General: Awake, alert, appropriate for age, in no acute distress. HEENT: No unusual neck masses around region of lateral neck triangle, thyroid, supraclavicular groove Heart: Regular rate and rhythm, normal S1, S2 and no murmur/gallop. Lungs: Clear to auscultation bilaterally with no use of accessory muscles. Extremities: Skin warm and dry without acute lesions, coloration, temperature, skin intact, no tenderness or erythema Integument: Hairy patches: Absent Dorsal skin dimples: Absent Cafe au lait spots: Absent Surgical incisions: yes, well healed lumbar surgical scar Palpation: Please see Pain drawing on Intake sheet for further detail. Midline spinal tenderness: No E6 Paralumbar tenderness: Mild E6 Parathoracic tenderness: No E6 Buttocks tenderness: No E6 Special findings: No POSTURAL and MUSCULO-SKELETAL EVALUATION: Coronal Balance: NEUTRAL Recumbent testing: Patient is able to lay flat on back Sagittal Balance: NEUTRAL Shoulder Profile: LEVEL Pelvic Girdle: LEVEL Neck ROM: UNRESTRICTED Lumbar ROM: RESTRICTED Shoulder ROM: Symmetrical Hip ROM: Symmetrical Knee ROM: Symmetrical Hands: Normal appearance, symmetrical Feet: Normal appearance, Symmetrical VASCULAR STATUS : LEFT RIGHT Wrist Pulses INTACT INTACT Pedal Pulses (Dors. pedis & post.tibialis) INTACT INTACT Color NORMAL NORMAL Edema Absent Absent NEUROLOGIC EXAMINATION: Mental Status:Awake and alert, fully oriented, with normal attention, concentration and memory, and fluent, appropriate speech. Cranial Nerves: I: Olfactory not tested. II: Visual acuity normal, no visual field deficit noted with confrontation. III,IV: Normal pupillary reflexes & intact extraocular movements without nystagmus. V,: Intact symmetrical facial sensation. VII: Intact symmetrical facial motor movement VIII: Hearing intact. IX,X: Intact gag, swallow, & normal voice. XI: Sternocleidomastoid, trapezius function intact. XII: Tongue midline with normal movements. L'hermitte's Sign: Negative / absent Spurling'Sign: Absent bilaterally. Cubital percussion test: Absent bilaterally. Crawford-Tinel sign - Carpal region: Absent bilaterally. Straight Leg Raising: Absent bilaterally. Crossed straight leg raise: negative O8 MOTOR EXAM (0-5/5, N/T) STRENGTH RIGHT LEFT Shoulder Abd (not part of the SELENE score) 5 5 Elbow Flexors 5 5 Elbow Extensor 5 5 Wrist Dorsiflexors 5 5 Finger Abductor 5 5 Hand Method Lasting Machine Operator 5 5 Hip Flexor (Not part of SELENE Motor score) 4+ 4 Knee Flexor 4+ 4 Knee Extensor 4 4+ Ankle dorsiflexor 4 4 Ankle plantarflexion 4 4 Extensor hallucis 4 4- Progressive weakness in LE b/l. Initially better after surgery and now getting much worse due to ASD. REFLEXES(0-4/2, NT) RIGHT LEFT Upper Extremities 2 2 Lower Extremities 2 2 Pathological Reflexes RIGHT LEFT Crawford's Absent Absent Clonus Absent Absent Babinski Absent Absent # Indicates mechanical impairment Muscle appearance: Symmetrical, without signs of atrophy or dystrophy. Sensory system (0-4, N/T) Test type RU MARBIN RL LL Joint-Position 2 2 2 2 Vibration 2 2 2 2 Pain & LT sense 2 2 2 2 Dermatomal Deficit: None None L3-5 L3-4 Gait and Functional Evaluation: Ambulatory aids: Independent Romberg's test: Intact bilaterally Toe heel walk / heel-toe walk intact while maintaining satisfactory balance? NO Squatting/straightening w/o assistance to a min of 60 degree knee flexion? NO Single leg stance: not intact on the left side Trendelenburg sign positive on the right Hand and finger dexterity intact bilaterally? yes Disdiadochokinesis examination negative bilaterally? yes RADIOGRAPHIC STUDIES: CT abdomen and pelvis from 04/09/22 at [facility]: IMages reviewd shows L4-S1 hardware in tact in good position without migration or evidence of failure. Previou hardware from T12-L2 also in position. Broken screw still evident in L2. Kyphosis at this segment evident. No severe interval changes here. Some ASD noted L3-4 with vacuum disc and height loss, posterior spurring and facet arthropathy. MRI Lumbar spine 05/29/2022 done at [facility]: MRI is reviewed and demonstrates severe stenosis L3-L4 with adjacent segment disease spondylosis and facet arthrosis. This is in the face of her previous stabilization due to her fracture above this at L1. Disc between O to L3 is still stable L3 to L4 show large disc herniation and facet arthrosis causing severe stenosis, spondylosis and beginning of instability at this level. Postsurgical changes are stable. Moderate amount of fluid posterior to the h ardware L4 through S1. No other K processes seen IMPRESSION AND PLAN: It was my pleasure to have seen and examined Tanika. I reviewed the patient's clinical syndrome, physical findings, and imaging studies during the appointment today. It is my impression that the patient has a diagnosis of. 1. 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 Lower extremity weakness 3. Lower extremity radiculopathy 4. Neurogenic claudication 5. Hardware failure L2-T12 6. Status post L1 Burst fixation I outlined the natural course history without intervention and various interventional options. Based on my findings I suggest the following course of action: I discussed treatment options with the patient, including operative and non- operative options, and they have elected to proceed with the following surgical procedure: Revision [id number] decompression and fusion The indications, risks, benefits, and alternatives to surgery were discussed with the patient at length. Specifically (but not limited to) the risks of infection, stiffness, recurrence of symptoms, need for revision surgery, local numbness, neurovascular injury, and blood clots were discussed. The patient's questions were answered. The decision to proceed was made. Consent will be obtained for the procedure. Surgical Procedure Risk Review Tanika Reis is a 62 year old female presenting for evaluation of f increasing low back pain and progressive lower extremity weakness and difficulty with walking long distances inability to complete her ADLs. It was my pleasure to have seen and examined Ms. Leslie Reis. In our visit today we have had a chance to go over subjective complaints, physical examination findings and treatments, including the natural course history without intervention and various interventional options. The imaging demonstrates MRI Lumbar spine 05/29/2022 done at [facility]; MRI is reviewed and demonstrates severe stenosis L3-L4 with adjacent segment disease spondylosis and facet arthrosis. This is in the face of her previous stabilization due to her fracture above this at L1. Disc between O to L3 is still stable L3 to L4 show large disc herniation and facet arthrosis causing severe stenosis, spondy losis and begining of instability at this level. Postsurgical changes are stable. Moderate amount of fluid posterior to the hardware L4 through S1. No other K processes seen . On physical exam, Ms. Leslie Reis demonstrates Increased weakness in hip flexion bilaterally as well as knee flexion and extension bilaterally. She was as difficulty walking distance of a neurogenic claudication and fashion. She is very painful and crampy. This is progressive from her previous exams. She did improve after surgery however this is a new problem which is having.. I explained to the patient that as her condition progresses it could cause progressive weakness increased neurologic deficit pain. . At this time, based on the patients imaging and physical exam, I recommend surgery in the form or a: Two-stage procedure first with a lateral L3-L4 interbody fusion followed by a posterior stabilization and decompression and fusion . I discussed the risk and benefits of this procedure at length with Ms. Leslie Reis. The patient agreed to consider pursuing the procedure mentioned above. Plan: 1.Revision T70-Ksaxay decompression and fusion 2. Review of surgical risks and benefits as well as an educational packet on the proposed surgical procedure. Risks: All surgical procedures come with inherent risks, including those related to positioning, anesthesia, intraoperative findings, and postoperative complications. It is important to understand that surgery does not come with any guarantee of a successful outcome as complications and adverse events are always possible. The patient was given a handout in office today discussing the surgical procedure and risks associated with the intervention, both of which were discussed with the patient. These risks include but are not limited to the following: ? Experiencing same, different or even worse symptoms in back, neck, arms, or legs compared to before surgery. ? Requiring further surgery or other forms of treatment presently or at some time in the future at same or other levels of the intended spine surgery. ? On an extreme but fortunately relatively rare basis severe complication such as blindness, stroke, heart attack, temporary and/or permanent nerve injury, paralysis, coma, or may occur, sometimes without known explanation. ? Surgical complications may include but are not limited to risk of infection, fluid accumulation in the surgical dissection site, including a seroma or hematoma, that requires additional surgery, wound drainage, bleeding, new numbness or weakness, vision changes/loss, spinal fluid leakage, non-healing and/or infected incision, headaches, difficulty or inability to swallow, hoarseness, hemopneumothorax, pneumothorax, impotence, retrograde ejaculation, vaginal dryness; injury to nerves, spinal cord, blood vessels, lymphatics or other vital organs (i.e., bowel injury, injury to the great vessels); heterotopic bone formation; complications related to the hardware such as screws, rods, cages including misplaced hardware, device failure, instrumentation at the wrong spine level, hardware fracture/breakage, or hardware loosening; vertebral failure of the spinal column above or below the newly placed hardware; retained surgical instrumentations or devices and the need for further surgery. ? Medical risks of the planned spine surgery include but are not limited to generalized Infections to the whole body or local areas outside of the surgical site (sepsis), heart attack, bleeding, anaphylaxis, meningitis, seizure, epilepsy, hearing loss, burn martinez, laceration of the head or other areas of the body, bruising, hypersensitivity of the skin, bladder over distension; allergic reaction; shoulder injury related to positioning; fat, blood and air clots to other areas of the body like heart, lungs, brain; failure of internal organs such as lungs, kidneys, liver and excessive bleeding. If blood transfusions are necessary, note that transfusions may cause intolerance reactions such as anaphylaxis or other complex reactions. Despite best efforts, the results of spine surgery might not heal in terms of bone, soft tissues such as skin, fascia, ligaments, and joints. Additionally, in order to achieve best possible results, spine surgery may be carried out beyond the initially planned levels and involve decompression, fusion including insertion of hardware at levels other than the original intended area of surg ical interest change some portions of the procedure in order to ensure the best possible outcomes. With spine surgery and spinal fusion, there are different off label uses of instrumentation (devices, implants and hardware) as well as biological substances (bone morphogenic proteins, demineralized bone matrix) as well as using extra bone from allograft sources (i.e. cadaver bone) or autograft (iliac crest bone, ribs, or the spine itself). The patient has been given information about these practices and their inherent risks and benefits. [facility] Physician Assistants are medically trained surgical providers who function in the outpatient, inpatient, and operating room setting under the direct supervision of the attending surgeon.They assist in the operating room with direct supervision of the attending surgeons. The patient has had a chance to review all the listed information, has been given print outs detailing this information, and has had all his/her questions answered to their satisfaction. It was my pleasure to have seen and examined Ms. Leslie Reis. In our visit today we have had a chance to go over my understanding of our patient's current condition, the natural course history without intervention and various interventional options. Questions were invited and answered, and the patient wishes to proceed as outlined above. I have seen and examined the patient for 25 minutes and we have spent more than 50% of the time in repeat and detailed counseling about the patient's condition, its natural course history with out and as much as can be predicted with surgery and re-review of various surgical treatment options. In conclusion,Ms. Leslie Reis and her spouse/partner requested we proceed with the above suggested surgery and are willing to accept risks and limitations of the suggested surgery as nature of the disease process and our best attempts at treatment for the condition. Thank you again for allowing us to be part of your patient's care. Please don't hesitate to contact me if you have any further questions. Follow-up: Post procedure Patient Education: (Informational booklet, instructions, etc) given at today's appointment: Yes .ED:Patient Education: Y Medications Reviewed: YES In our visit today Ms. Nelson and I have had a chance to go over my understanding of the patient's current condition, the natural course history without intervention and various interventional options. Questions were invited and answered, and the patient wishes to proceed as outlined above. I will be sure to keep you updated afterMs. Nelson returns here for further follow-up. Thank you again for your referral. Please do not hesitate to contact me if you have any further questions. Signed and authenticated by: [facility] [address], [place] [address] [place] [id number] This message is confidential, intended only for the named recipient(s) and may contain information that is privileged or exempt from disclosure under applicable law. If you are not the intended recipient(s), you are notified that the dissemination, distribution or copying of this information is strictly prohibited. If you received this message in error, please notify the sender then delete this message. Patient verbalizes understanding of the information discussed. The above note was initiated by Lillie Cooper, physician recording review assistant for Dr. Ricardo Acevedo. This note has been reviewed by Dr. Acevedo, who has made his personal changes and impressions for this document. CC: Dr. Steph Astudillo MD Past Medical History Past Medical History: Hyperlipidemia, Hypertension, Osteoarthritis (OA) Additional Past Medical History / Comment(s): Depression, Hx fracture of thoracic spine 2011 with surgery , kidney stones., states recent elevated bloodpressure due to stress. History of Any Multi-Drug Resistant Organisms: None Reported Past Surgical History: Back Surgery, Cholecystectomy, Hysterectomy, Orthopedic Surgery Additional Past Surgical History / Comment(s): carpal tunnel bilateral, parathyoidectomy (d/t growth), back surgey, 2011 fracture with pin and plate in spine thoracic ([place]), 2013 sciatic nerve release. Past Anesthesia/Blood Transfusion Reactions: Previous Problems w/ Anesthesia, Motion Sickness Additional Past Anesthesia/Blood Transfusion Reaction / Comment(s): states trachial spasms in 1990- no problems since then. no bllod tx hx Smoking Status: Former smoker, Smoker, current status unknown - Past Family History Father Family Medical History: Cancer, Diabetes Mellitus Additional Family Medical History / Comment(s): bone cancer Sister(s) Family Medical History: Cancer Additional Family Medical History / Comment(s): Breast cancer Medications and Allergies Home Medications Medication Instructions Recorded Confirmed Type Desvenlafaxine Succinate [Pristiq] 200 mg PO DAILY 01/05/20 09/09/22 History Metoprolol Tartrate [Lopressor] 100 mg PO DAILY 01/05/20 09/09/22 History Magnesium Oxide [Valiente] 500 mg PO DAILY 02/15/20 09/09/22 History Acetaminophen [Tylenol] 1,000 mg PO Q6H #100 tab 02/22/20 09/09/22 Rx Rosuvastatin(Unk) 20 mg PO HS 09/09/22 09/09/22 History buPROPion SR [Wellbutrin SR] 300 mg PO DAILY 09/09/22 09/09/22 History hydroCHLOROthiazide 25 mg PO DAILY 09/09/22 09/09/22 History traZODone HCL 50 - 100 mg PO HS 09/09/22 09/09/22 History Allergies Allergy/AdvReac Type Severity Reaction Status Date / Time No Known Allergies Allergy Verified 09/09/22 11:05 Physical Examination Osteopathic Statement: *. No significant issues noted on an osteopathic structural exam other than those noted in the History and Physical/Consult.
[~2022-09-14 06:27] MED LIST changes: +ACETAMINOPHEN TAB 500 MG TAB PO PRN; +GABAPENTIN 300 MG CAP PO PRN; +LIDOCAINE 1% (10MG/ML) FOR IV START INTRADERMA PRN; +ONDANSETRON 4 MG/2 ML VIAL IVP PRN; -PREMYELOGRAM MEDICATION REVIEW 1 EACH MISC PO NR; +TRANEXAMIC ACID IN NACL,ISO-OS 1,000 MG in SALINE 1 100ML.BAG IVPB PRN; -diazePAM 5 MG TAB PO STA
[2022-09-14] MEDS: LACTATED RINGERS 1,000 ML IV SCH (06:34)
[2022-09-14] MEDS ORDERED: MIDAZOLAM 2 MG/2 ML VIAL IVP ONE (07:13)
[2022-09-14] MEDS ORDERED: fentaNYL (PF) 50 MCG/ML 2 ML AMP IVP ONE ×2 (07:22→07:40)
[2022-09-14] MEDS ORDERED: fentaNYL (PF) 50 MCG/ML 2 ML AMP ONE (07:40)
[2022-09-14] MEDS ORDERED: NEOSTIGMINE 1 MG/ML 10 ML VIAL ONE (07:40)
[2022-09-14] MEDS ORDERED: KETAMINE 10 MG/ML 20 ML VIAL ONE (07:40)
[2022-09-14] MEDS ORDERED: GLYCOPYRROLATE 0.2 MG/ML 2 ML VIAL ONE (07:40)
[2022-09-14] MEDS ORDERED: PHENYLEPHRINE-0.9% NACL SYG 1,000 MCG/10 ML SYRINGE ONE (07:40)
[2022-09-14] MEDS ORDERED: ePHEDrine 50 MG/ML 1 ML VIAL ONE (07:40)
[2022-09-14] MEDS ORDERED: SUCCINYLCHOLINE CHLORIDE 200 MG/10 ML VIAL IV ONE (07:40)
[2022-09-14] MEDS ORDERED: ONDANSETRON 4 MG/2 ML VIAL ONE (07:40)
[2022-09-14] MEDS ORDERED: PROPOFOL 10 MG/ML 20 ML VIAL IV ONE (07:40)
[2022-09-14] MEDS ORDERED: TRANEXAMIC ACID IN NACL,ISO-OS 1,000 MG/100 ML BAG ONE (07:40)
[2022-09-14] MEDS ORDERED: ROCURONIUM 10 MG/ML (5 ML VIAL) IV ONE (07:40)
[2022-09-14] MEDS ORDERED: MIDAZOLAM 2 MG/2 ML VIAL ONE (07:40)
[2022-09-14] MEDS ORDERED: LACTATED RINGERS 1,000 ML IV ONE ×3 (09:34→15:08)
--- NOTE | 2022-09-14 09:34 | P.ANPRN ---
Procedure Note - Anesthesia - Invasive Line Left Arterial Line Time Out Performed: Yes (07) Date of Procedure: 09/14/22 Time of Procedure: 07:13 Location of Patient: PreOp Preparation: Sterile Prep, Sterile Dressing Arterial Line Location: Radial (left) Ultrasound Used: Yes Purpose - Visualization and Identification of Vasculature: Yes Needle Guage: 20g Image Stored and Saved: Yes Narrative: Central line placement per sterile protocol utilized. left radial arterial line.
--- NOTE | 2022-09-14 09:36 | P.ANPRN ---
Procedure Note - Anesthesia - Invasive Line Right Central Line Time Out Performed: Yes (711) Date of Procedure: 09/14/22 Time of Procedure: 07:13 Location of Patient: PreOp Preparation: Sterile Prep, Sterile Dressing Central Line Location: Internal Jugular (right) Ultrasound Used: Yes Purpose - Visualization and Identification of Vasculature: Yes Needle Guage: 18g angio Image Stored and Saved: Yes Narrative: Central line placement per sterile protocol utilized. +local +angio +cvp +jwire +uneventful dilation and introduction right IJ LONNIE. Lumens bled and flushed.
[2022-09-14] MEDS ORDERED: THROMBIN (BOVINE) 5,000 UNIT VIAL TOPICAL ONE (10:09)
[2022-09-14] MEDS ORDERED: GELATIN SPONGE,ABSORB (LARGE) 1 EACH SPONGE TOPICAL ONE (10:09)
[2022-09-14] MEDS ORDERED: VANCOMYCIN 1,000 MG VIAL MISCELLANE ONE (12:21)
--- NOTE | 2022-09-14 12:54 | FL ---
EXAMINATION TYPE: FL guidance operating room, XR lumbar spine 2 or 3V DATE OF EXAM: 09/14/2022 COMPARISON: NONE HISTORY: 62-year-old female intervertebral disc degeneration, revision of [id number] fusion FINDINGS: Postsurgical change with placement of Y40-yryque posterior and interbody fusion changes. FLUOROSCOPY Fluoroscopy time of 1 minute 24 seconds was used during the thoracic, lumbar, and pelvic fusion. 6 i mage/s document/s the procedure. DOSE AREA PRODUCT (DAP) UGY*M,MGY*CM: 11.14 75.16 + 9.2365 DAP IMPRESSION: Intraoperative fluoroscopy as above.
[2022-09-14] MEDS ORDERED: MAGNESIUM HYDROXIDE 2,400 MG/10 ML CUP PO PRN (13:47)
[2022-09-14] MEDS ORDERED: HYDROcodone/APAP 10-325MG 1 EACH TAB PO PRN (13:47)
[2022-09-14] MEDS: HYDROmorphone 0.5 MG/0.5 ML SYRINGE IVP PRN ×3 (13:57→21:56)
[2022-09-14] MEDS ORDERED: ALBUMIN HUMAN 5% (12.5gm) 250 ML BOTTLE IVPB ONE (14:30)
--- NOTE | 2022-09-14 14:52 | XR ---
EXAMINATION TYPE: XR chest 1V confirm line plcmt DATE OF EXAM: 09/14/2022 COMPARISON: 09/07/2020 HISTORY: 62-year-old female central line placement TECHNIQUE: Single frontal view of the chest is obtained. FINDINGS: Right IJ CVC tip at the lower SVC. Midline posterior skin josi with partially visualize d thoracolumbar fusion hardware. Low lung volumes with patchy bibasilar opacities. Heart borderline i n size. Calcified granuloma redemonstrated lateral left upper lobe. No pleural effusion. IMPRESSION: Hypoventilatory changes. Patchy bibasilar opacities likely postoperative atelectasis.
[2022-09-14 15:47] LABS: Basophils % (A) 0 %; Eosinophils # (A) 0.1 k/uL (0-0.7); Eosinophils % (A) 1 %; HCT 26.2 % (34.0-46.0); HGB 8.8 gm/dL (11.4-16.0); Lymphocytes # (A) 0.8 k/uL (1.0-4.8); Lymphocytes % (A) 8 %; MCH 31.1 pg (25.0-35.0); MCHC 33.4 g/dL (31.0-37.0); Mean Platelet Volume 7.5; Monocytes # (A) 0.5 k/uL (0-1.0); Monocytes % (A) 5 %; Neutrophils # (A) 8.6 k/uL (1.3-7.7); Neutrophils % (A) 86 %; Platelet Count 234 k/uL (150-450); RBC 2.82 m/uL (3.80-5.40); WBC 10.1 k/uL (3.8-10.6)
[2022-09-14] MEDS ORDERED: ARTIFICIAL TEARS-HYPROMELLOSE DROPS 15 ML BTL BOTH EYES PRN (15:48)
[2022-09-14] MEDS: ACETAMINOPHEN TAB 325 MG TAB PO SCH ×2 (20:06→23:37)
[2022-09-14] MEDS: GABAPENTIN 300 MG CAP PO SCH ×2 (20:07→21:51)
--- NOTE | 2022-09-15 00:08 | CT ---
EXAMINATION TYPE: CT thor lumbar spine wo con DATE OF EXAM: 09/14/2022 COMPARISON: 02/20/2020 CT lumbar spine HISTORY: s/p [id number] fusion CT DLP: 1652 mGycm Automated exposure control for dose reduction was used. Contrast: None Technique: Axial images at 3 mm thick sections. Reconstructed images coronal and sagittal plane. FINDINGS: Note is made of a eccentric calcification within ar 1.2 cm nodule peripheral left upper lung field. S eries 201 image 22. Some atelectatic type streak opacities are within the dependent portions of the l ungs bilaterally. Coronary artery calcification is noted. Vertebroplasty is present T10. Pedicle screws are present T10-T12 and L1-S1. Left paracentral endplate spurring is moderate anterior thecal sac compression at the T7-8 level. Thi s appears to have cord contact and cord deformity. Spinal canal stenosis is not identified. Disc spacer is present at L2-3. Postlaminectomy changes. If present L2-L5. Postsurgical changes are e vident within the posterior paraspinal region. Compression deformity of L1 is evident. IMPRESSION: 1. POSTSURGICAL CHANGES WITH FIXATION T10 THROUGH S1 IN THE PELVIS. 2. LEFT PARACENTRAL ENDPLATE SPURRING WITH MODERATE ANTERIOR THECAL SAC COMPRESSION MAY HAVE CORD DEF ORMITY AT THE T7-8 LEVEL
--- NOTE | 2022-09-15 01:53 | P.CONS ---
History of Present Illness - Reason for Consult Consult date: 09/14/22 - History of Present Illness The patient is a 62-year-old female with a PMH of hypertension, hyperlipidemia and chronic lower back pain was admitted for an elective T10 to pelvis decompression and fusion revision surgery. The patient underwent the procedure earlier today and was seen postoperatively on the surgical unit. She reported ongoing 8 out of 10 lower back discomfort at time of interview. She denied lower extremity weakness or numbness. Also denied experiencing chest discomfort, shortness of breath, sore throat, fever, chills, cough, nausea, vomiting. She reports compliance with her medications at home. The patient reports that she has not gotten out of bed since the surgery and has a Guzmán catheter in place. She reports that she has not yet passed flatus. Review of systems: Pertinent positives and negatives as discussed in HPI, a complete review of systems was performed and all other systems are negative. Physical examination: Vital signs reviewed General: non toxic, no distress, appears at stated age, normal weight Derm: no unusual rashes/lesions, warm Head: atraumatic, normocephalic, symmetric Eyes: EOMI, no lid lag, anicteric sclera, pupils equal round reactive to light ENT: Nose and ears atraumatic Neck: No cervical lymphadenopathy, trachea midline, supple Mouth: no lip lesion, mucus membranes moist Cardiovascular: S1S2 reg, no murmur, positive dorsalis pedis pulse bilateral, no edema Lungs: CTA bilateral, no rhonchi, no rales, no accessory muscle use Abdominal: soft, nontender to palpation, no guarding Ext: muscle strength 4 out of 5 in all 4 extremities grossly, no gross muscle atrophy, no contractures, Neuro: CN II-XI grossly intact, no gross focal neuro deficits Psych: Alert, oriented, appropriate affect Assessment: Status post T10 to pelvis decompression and fusion revision surgery Chronic conditions: Hypertension, hyperlipidemia Data Review: Laboratory evaluation was reviewed with CBC showing hemoglobin 8.8 and platelet count 234. Vital signs were reviewed with BP 98/60, pulse 77, respiratory rate 17, SpO2 94% on 2 L of the cannula oxygen with temp 97.8F Plan: Hold home antihypertensives in setting of borderline BP at this time. Resume as warranted Defer management of postsurgical care including pain control and DVT prophylaxis to the primary surgery service We appreciate this opportunity to be involved in this patient's care. We will follow the patient with you. For any further questions, please not hesitate to contact the [place] emergency department inpatient team. Past Medical History Past Medical History: Hyperlipidemia, Hypertension, Osteoarthritis (OA) Additional Past Medical History / Comment(s): Depression, Hx fracture of thoracic spine 2011 with surgery , kidney stones., states recent elevated bloodpressure due to stress. History of Any Multi-Drug Resistant Organisms: None Reported Past Surgical History: Back Surgery, Cholecystectomy, Hysterectomy, Orthopedic Surgery Additional Past Surgical History / Comment(s): carpal tunnel bilateral, parathyoidectomy (d/t growth), back surgey, 2012 fracture with pin and plate in spine thoracic ([place]), 2013 sciatic nerve release. Past Anesthesia/Blood Transfusion Reactions: Previous Problems w/ Anesthesia, Motion Sickness Additional Past Anesthesia/Blood Transfusion Reaction / Comm: states trachial spasms in 1990- no problems since then. no bllod tx hx Past Psychological History: ADD/ADHD, Depression Smoking Status: Never smoker Past Alcohol Use History: Daily Additional Past Alcohol Use History / Comment(s): quit smoking 30 yrs ago, (1989), smoked 1 1/2 ppd, started smoking age 11. Drinks 2-3 "cups" of wine daily. Past Drug Use History: None Reported - Past Family History Father Family Medical History: Cancer, Diabetes Mellitus Additional Family Medical History / Comment(s): bone cancer Sister(s) Family Medical History: Cancer Additional Family Medical History / Comment(s): Breast cancer Medications and Allergies Home Medications Medication Instructions Recorded Confirmed Type Desvenlafaxine Succinate [Pristiq] 200 mg PO DAILY 01/05/20 09/14/22 History Metoprolol Tartrate [Lopressor] 100 mg PO DAILY 01/05/20 09/14/22 History Magnesium Oxide [Valiente] 500 mg PO DAILY 02/15/20 09/14/22 History Acetaminophen [Tylenol] 1,000 mg PO Q6H #100 tab 02/22/20 09/14/22 Rx Rosuvastatin(Unk) 20 mg PO 09/09/22 09/14/22 History buPROPion SR [Wellbutrin SR] 300 mg PO DAILY 09/09/22 09/14/22 History hydroCHLOROthiazide 25 mg PO DAILY 09/09/22 09/14/22 History traZODone HCL 50 - 100 mg PO 09/09/22 09/14/22 History Allergies Allergy/AdvReac Type Severity Reaction Status Date / Time No Known Allergies Allergy Verified 09/14/22 06:37 Physical Exam Vitals: Vital Signs Temp Pulse Resp BP BP Pulse Ox 09/14/22 20:00 98.3 F 71 16 110/66 97 09/14/22 18:58 72 16 94/52 100 09/14/22 17:58 61 14 109/62 100 09/14/22 17:00 65 14 107/63 100 09/14/22 16:30 63 14 107/58 108/53 100 09/14/22 16:00 60 14 107/58 102/53 100 09/14/22 15:45 59 L 14 101/57 103/60 100 09/14/22 15:30 64 14 97/61 101/60 100 09/14/22 15:15 71 14 99/52 94/58 100 09/14/22 15:00 66 14 88/58 90/58 100 09/14/22 14:45 60 14 85/61 88/51 100 09/14/22 14:35 61 14 79/51 88/58 100 09/14/22 14:30 60 14 75/51 100 09/14/22 14:15 68 14 77/53 100 09/14/22 14:00 55 L 16 142/54 99 09/14/22 13:45 55 L 16 96/57 99 09/14/22 13:30 57 L 16 92/54 100 09/14/22 13:13 96.8 F L 55 L 16 90/52 100 09/14/22 07:38 72 18 110/66 98 09/14/22 07:00 97.4 F L 70 18 135/74 98 Intake and Output 09/14/22 09/14/22 09/15/22 14:59 22:59 06:59 Intake Total 3850 400 Output Total 1295 175 Balance 2555 225 Intake: IV 3850 400 Output: Drainage 75 Back 75 Urine 395 100 Estimated Blood Loss 900 Other: Voiding Method Indwelling Catheter Weight 72.4 kg Results CBC & Chem 7: 09/14/22 15:26 Labs: Abnormal Lab Results - Last 24 Hours (Table) 09/14/22 Range/Units 15:26 RBC 2.82 L (3.80-5.40) m/uL Hgb 8.8 L (11.4-16.0) gm/dL Hct 26.2 L (34.0-46.0) % Neutrophils # 8.6 H (1.3-7.7) k/uL Lymphocytes # 0.8 L (1.0-4.8) k/uL
[2022-09-15] MEDS: ACETAMINOPHEN TAB 325 MG TAB PO SCH ×2 (06:01→11:40)
[2022-09-15] MEDS: LACTATED RINGERS 1,000 ML IV SCH ×6 (06:02→15:00)
[2022-09-15] MEDS ORDERED: SODIUM CHLORIDE 0.9% 1,000 ML IV ONE (06:43)
[2022-09-15] MEDS: HYDROmorphone 0.5 MG/0.5 ML SYRINGE IVP PRN (06:50)
[2022-09-15 07:31] LABS: Basophils % (A) 0 %; Eosinophils % (A) 0 %; HCT 22.6 % (34.0-46.0); HGB 7.4 gm/dL (11.4-16.0); Lymphocytes % (A) 12 %; MCH 31.5 pg (25.0-35.0); MCHC 32.7 g/dL (31.0-37.0); MCV 96.3 fL (80.0-100.0); Mean Platelet Volume 9.8; Monocytes # (A) 0.5 k/uL (0-1.0); Monocytes % (A) 6 %; Neutrophils # (A) 6.7 k/uL (1.3-7.7); Neutrophils % (A) 80 %; Platelet Count 167 k/uL (150-450); RBC 2.35 m/uL (3.80-5.40); RDW 13.7 % (11.5-15.5); WBC 8.3 k/uL (3.8-10.6)
[2022-09-15 07:42] LABS: African American GFR (CKD) >90 (>60 ml/min/1.73 sqM); Anion Gap 3 mmol/L; Blood Urea Nitrogen 18 mg/dL (7-17); Calcium 6.9 mg/dL (8.4-10.2); Carbon Dioxide 33 mmol/L (22-30); Chloride 98 mmol/L (98-107); Glucose 103 mg/dL (74-99); Non-African American GFR(CKD) 82 (>60 ml/min/1.73 sqM); Potassium 3.1 mmol/L (3.5-5.1); Sodium 134 mmol/L (137-145)
--- NOTE | 2022-09-15 07:44 | P.PN ---
Subjective Progress Note Date: 09/15/22 Principal diagnosis: 1. 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 Lower extremity weakness 3. Lower extremity radiculopathy 4. Neurogenic claudication 5. Hardware failure L2-T12 6. Status post L1 Burst fixation Patient seen and examined this morning. Patient is resting comfortably in bed. Patient did report she had increased pain in her low back, states that it has improved with IV medications. Medications have been adjusted. Patient has had low blood pressure throughout the night, 1 L bolus is being provided at this time. Surgical dressing to the thoracolumbar region is intact with 1 Hemovac present, maintain to gravity, no compression. Drain output 175ml overnight. Alvarado catheter remains present and patent, this may be removed once patient is up and about. Patient reports slight improvement in bilateral lower extremity radiculopathy since procedure. Patient has not been up and about since procedure. Encouraged patient to work with physical therapy today. Patient has been afebrile, denies nausea/vomiting, or chest pain. Objective - Vital Signs Vital signs: Vital Signs Temp 97.9 F 09/15/22 03:41 Pulse 72 09/15/22 03:41 Resp 17 09/15/22 03:41 BP 88/60 09/15/22 06:30 Pulse Ox 96 09/15/22 03:41 FiO2 Intake & Output 09/14/22 09/15/22 09/15/22 18:59 06:59 18:59 Intake Total 4250 Output Total 1395 925 Balance 2855 -925 Weight 72.4 kg Intake: IV 4250 Output: Drainage 150 Back 150 Urine 495 775 Estimated Blood Loss 900 Other: Voiding Method Indwelling Catheter - Exam Physical Examination General: The patient is awake and alert, in no acute distress Skin: Skin is warm and dry with no obvious rashes or lesions. Surgical incision to the cervical lumbar region, dressing is clean dry and intact. 1 Hemovac present and patent. Eye: Pupils are equal, round and reactive to light, extra-ocular movements are intact; there is normal conjunctiva bilaterally. Neck: The neck is supple, there is no tenderness and ROM intact. Cardiovascular: There is a regular rate and rhythm. No murmur, rub or gallop is appreciated. Respiratory: Lungs are clear to auscultation, respirations are non-labored, breath sounds are equal. Gastrointestinal: Soft, non-distended, non-tender abdomen. Back: There is no tenderness to palpation in the midline, paralumbar, parathoracic or buttocks region. There is no obvious deformity . Musculoskeletal: ROM limited secondary to pain and stiffness from surgical procedure. Muscle strength in all major muscle groups of bilateral upper extremities 5/5, bilateral lower extremities 4/5. Neurological: CN 2-12 intact. There are no obvious motor or sensory deficits. Movement and coordination equal and intact. Sensory exam to light touch intact C5-T1 and intact from L2-S1. Reflexes 2/4 in bilateral upper and lower extremities. Negative Hoffmans, babinski, and clonus signs. Psychiatric: Cooperative, appropriate mood & affect, normal judgment. - Labs CBC & Chem 7: 09/15/22 07:16 Labs: Abnormal Lab Results - Last 24 Hours (Table) 09/14/22 Range/Units 15:26 RBC 2.82 L (3.80-5.40) m/uL Hgb 8.8 L (11.4-16.0) gm/dL Hct 26.2 L (34.0-46.0) % Neutrophils # 8.6 H (1.3-7.7) k/uL Lymphocytes # 0.8 L (1.0-4.8) k/uL Assessment and Plan Assessment: Postop day 1: Revision [id number] decompression and fusion 1. 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 Lower extremity weakness 3. Lower extremity radiculopathy 4. Neurogenic claudication 5. Hardware failure L2-T12 6. Status post L1 Burst fixation Plan: -Appreciate skin care consultant and team management. -Continue to monitor BP, 1L bolus ordered. -Activity: Ambulate QID, OOB all meals, up and about, limit lifting bending twisting to less than 5 lbs. Use walker or cane if needed for stability. -Daily PT/OT, increase ambulation strength and balance. -Brace when up and about, not needed in bed or chair -Pain control: Medications have been adjusted. -Meds: reviewed -GI ppx: senna, Miralax -DC alvarado when up and about, bedside commode if needed -DVT PPX: OK to restart Heparin tonight -Hygiene: Shower today. Maintain dressing clean and dry. Meticulous cleaning after BMs away from the incision site -Drains: Maintain for now. DC later today pending out put and PT -Encourage IS 10x/hr -Dispo: Anticipate discharge home within 48-72hrs with homecare *I reviewed and discussed this case with my attending Dr. Acevedo, whom has reviewed this chart and films and is in agreement with assessment and plan of care as outlined above. I have personally seen and examined the patient, performed the documentation and the assessment and plan as written. Number of minutes spent on the visit: 20m.
[2022-09-15] MEDS ORDERED: Potassium Replacement Protocol 1 EACH MISC MISCELLANE PRN (07:45)
[2022-09-15] MEDS: POTASSIUM CHLORIDE ER 20 MEQ TAB.ER PO SCH ×2 (09:33→11:40)
[2022-09-15] MEDS: GABAPENTIN 300 MG CAP PO SCH ×3 (09:33→21:38)
[2022-09-15] MEDS: SENNOSIDES-DOCUSATE SODIUM 1 EACH TAB PO PRN (09:33)
[2022-09-15] MEDS ORDERED: HYDROcodone/APAP 10-325MG 1 EACH TAB PO SCH (10:00)
[2022-09-15] MEDS: buPROPion SR 150 MG TABLET.ER PO SCH (11:40)
[2022-09-15] MEDS: DESVENLAFAXINE SUCCINATE 50 MG TAB.ER.24H PO SCH (11:40)
--- NOTE | 2022-09-15 13:00 | P.PN ---
Subjective Progress Note Date: 09/15/22 Subjective: The and examined at bedside. No acute events overnight. Patient has remained hypotensive, but asymptomatic. She denies any lightheadedness, shortness of breath, palpitations, nausea, vomiting, diarrhea, constipation, or urinary complaints. Pertinent positives and negatives as discussed above, a complete review of systems was performed and all other systems are negative. Vitals Signs Reviewed. General: nontoxic, no distress, appears at stated age Derm: warm, dry, dressing slightly blood-tinged. Drain in place. Head: atraumatic, normocephalic, symmetric Eyes: EOMI, no lid lag, anicteric sclera Mouth: no lip lesion, mucus membranes moist Cardiovascular: S1S2 reg, no murmur Lungs: CTA bilateral, no rhonchi, no rales , no accessory muscle use Abdominal: soft, nontender to palpation, no guarding, no appreciable organomegaly Ext: no gross muscle atrophy, no edema, no contractures Neuro: CN II-XI grossly intact, no focal neuro deficits Psych: Alert, oriented, appropriate affect Data Reviewed Today: Pertinent Labs: Hemoglobin 7.4, potassium 31, creatinine 0.77 Imaging: Thoracic lumbar spine CT report reviewed, postsurgical changes noted Assessment and Plan: Active: Status post T10 to pelvis decompression and fusion revision surgery Hypotension, asymptomatic Acute blood loss anemia, expected outcome of surgery Hypokalemia -On oral Tylenol, gabapentin, IV Dilaudid as needed, oral [place] for pain -Given another 1 L of LR, blood pressure improving -Has some bleeding from BRE drain, repeat CBC tomorrow -Received 40 Eliquis oral potassium -Repeat BMP tomorrow Chronic: Depression Anxiety Dyslipidemia Thank you for allowing us to participate in the care of this pleasant patient. Do not hesitate to contact us with questions. Someone can be reached from the [facility] hospitalist group all hours of the day at [phone] or via [employer]. Objective - Vital Signs Vital signs: Vital Signs Temp 99.1 F 09/15/22 11:40 Pulse 93 09/15/22 11:40 Resp 16 09/15/22 11:40 BP 115/61 09/15/22 11:40 Pulse Ox 95 09/15/22 11:40 FiO2 Intake & Output 09/14/22 09/15/22 09/15/22 18:59 06:59 18:59 Intake Total 4250 180 Output Total 1395 925 200 Balance 2855 -925 -20 Weight 72.4 kg Intake: IV 4250 Oral 180 Output: Drainage 150 200 Back 150 200 Urine 495 775 Estimated Blood Loss 900 Other: Voiding Method Indwelling Catheter Indwelling Catheter - Labs CBC & Chem 7: 09/15/22 07:16 09/15/22 07:16 Labs: Abnormal Lab Results - Last 24 Hours (Table) 09/14/22 09/15/22 09/15/22 Range/Units 15:26 07:16 07:16 RBC 2.82 L 2.35 L (3.80-5.40) m/uL Hgb 8.8 L 7.4 L (11.4-16.0) gm/dL Hct 26.2 L 22.6 L (34.0-46.0) % Neutrophils # 8.6 H (1.3-7.7) k/uL Lymphocytes # 0.8 L (1.0-4.8) k/uL Sodium 134 L (137-145) mmol/L Potassium 3.1 L (3.5-5.1) mmol/L Carbon Dioxide 33 H (22-30) mmol/L BUN 18 H (7-17) mg/dL Glucose 103 H (74-99) mg/dL Calcium 6.9 L (8.4-10.2) mg/dL
[2022-09-15] MEDS: HYDROcodone/APAP 10-325MG 1 EACH TAB PO SCH ×3 (14:53→21:37)
[2022-09-15] MEDS ORDERED: ACETAMINOPHEN TAB 325 MG TAB PO PRN (14:55)
[2022-09-15] MEDS: ATORVASTATIN 40 MG TAB PO SCH (20:04)
[2022-09-16] MEDS: HYDROcodone/APAP 10-325MG 1 EACH TAB PO SCH ×2 (02:21→05:54)
[2022-09-16] MEDS: HYDROmorphone 0.5 MG/0.5 ML SYRINGE IVP PRN ×3 (02:29→23:00)
[2022-09-16] MEDS: LACTATED RINGERS 1,000 ML IV SCH (05:57)
--- NOTE | 2022-09-16 08:06 | P.OP ---
Date of Procedure: 09/14/22 Preoperative Diagnosis: 1. 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 Low back pain 3. Neurogenic claudication 4. Lumbar radiculopathy 5. LE weakness Postoperative Diagnosis: 1. 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 Low back pain 3. Neurogenic claudication 4. Lumbar radiculopathy 5. LE weakness Procedure(s) Performed: 1. L2-3, L3-4 posteriolateral and interbody fusion (33028, 82860) 2. T35-Rekeij revision posteriolateral instrumented fusion (32438, 77227 x6) 3. Instrumentation C51-Ljfpbg (46379) 4. Attachement of caudal end of construct to pelvis (77732) 5. Decompression L2-3 and L3-4 beyond that needed for cage placement and for neurological complete decompression and mobilization of levels. (84307, 34113 (01532 better describes but is unable to be billed due to insurance preference)) 6. Removal of segmental hardware T12-L2 for L1 fracture fixation (67271) 7. Exploration of fusion L4-S1 and T12-L2 (28986) 8. Use of [employer] navigation for screw placement (23856) Use of IONM all screws testing >20 mA. Errors on screws on right side from T12- L2 testing at 4 mA. These were inspected and were safe. Implants: [place] everest screw system Globus Sable cages x2 MagnatOs, Athrocell, iFactor, Cerus, autograft Anesthesia: GETA Surgeon: Riacrdo Acevedo Marine Machinist #1: Jim Hoskins (Was present and assisted with all aspects of the case. ) Estimated Blood Loss (ml): 900 Urine output (ml): 500 Pathology: none sent Condition: stable Disposition: PACU Indications for Procedure: Tanika Reis is a 62 year old female presenting for evaluation of f increasing low back pain and progressive lower extremity weakness and difficulty with walking long distances inability to complete her ADLs. It was my pleasure to have seen and examined Ms. Leslie Reis. In our visit today we have had a chance to go over subjective complaints, physical examination findings and treatments, including the natural course history without intervention and various interventional options. The imaging demonstrates MRI Lumbar spine 05/29/2022 done at [facility]; MRI is reviewed and demonstrates severe stenosis L3-L4 with adjacent segment disease spondylosis and facet arthrosis. This is in the face of her previous stabilization due to her fracture above this at L1. Disc between O to L3 is still stable L3 to L4 show large disc herniation and facet arthrosis causing severe stenosis, spondylosis and begining of instability at this level. Postsurgical changes are stable. Moderate amount of fluid posterior to the hardware L4 through S1. No other K processes seen . On physical exam, Ms. Leslie Reis demonstrates Increased weakness in hip flexion bilaterally as well as knee flexion and extension bilaterally. She was as difficulty walking distance of a neurogenic claudication and fashion. She is very painful and crampy. This is progressive from her previous exams. She did improve after surgery however this is a new problem which is having.. I explained to the patient that as her condition progresses it could cause progressive weakness increased neurologic deficit pain. . At this time, based on the patients imaging and physical exam, I recommend surgery in the form or a: Two-stage procedure first with a lateral L3-L4 interbody fusion followed by a posterior stabilization and decompression and fusion . I discussed the risk and benefits of this procedure at length with Ms. Leslie Reis. The patient agreed to consider pursuing the procedure mentioned above. Plan: 1.Revision X71-[id number] decompression and fusion Description of Procedure: Revision [id number] Decompression and fusion with CARMEN The patient was seen and examined in the preoperative area. All preoperative protocols were followed. Informed consent was obtained, risks and benefits of the procedure were discussed at length. Risks including bleeding infection damage to the surrounding tissue and risk of re-operation were discussed with the patient. Risk of anesthesia up to and including was discussed with the patient. These are outlined in the risk review. They were willing to accept these risks and all the risks of surgery. The patient was given a weight-based dose of antibiotics in the form of 3 g Ancef. The patient was seen and evaluated by the anesthesia team who deemed them fit for surgery. The site was marked, the patient was willing to proceed with the procedure. The patient was transferred to the operative suite by the Department of anesthesia. They were then drifted off to sleep by the department anesthesia and GETA was performed. The patient tolerated this well. Guzmán catheter was placed by nursing staff, a-traumatically. Once confirmation of lines and ventilation the patient was transferred to a prone Trios spine table very carefully. The head was secured and stable. Xray confirmed alignment. All bony prominences including wrists, elbows, axilla, chest, hips, and thighs, and feet were padded very well. Special attention was paid to the genitalia, and these were padded accordingly. SCDs were placed on bilateral lower extremities and were connected. Arms were well padded and placed at 90/90 up and out and well padded. Safety strap and tape placed on the patient. Once in position, again we confirmed good ventilation capabilities and that lines were running appropriately. The patients lumbosacral pelvic was then exposed. Hair was removed for incision. 1010s were placed outlining the incision site. Standard alcohol was used to clean the incision site and allowed to dry. C-arm was used to bio-kiley the patient and confirm level for incision which was marked with a skin marker. Operative briefing was performed with all teams and everyone in agreement to proceed. The patient was then prepped and draped in a normal sterile fashion. Timeout was then performed, and all parties agreed with the procedure to be performed. Midline skin incision was then made over the previously bookmarked area and dissection taken down to the lumbosacral fascia which was identified and cleaned with a carrion. Once midline was identified, fasciotomy was made over the SP of [id number].Dissection was taken down and hardware identified at T12-L2. These were removed and the area inspected. It was still very unstable and the pedicle on the right side at L2 appeared to have broken due to the screw fracture in the same area. This was unable to be removed and was left in place. The area from L4-S1 set screws were removed and rods removed. screws were tested and b/l L4 screws were loose and the right sided S1 screw was loose so these were removed to be replaced and up-sized. Subperiosteal dissection was then taken down over the lamina and facet joints and TPs were exposed and trough made posterolateral. TPs were then decorticated L1-S1 and sacral ala with a high speed stefan for lateral fusion. Dissection was taken out over the sacrum to the pelvis. SI joint identified and modified Evans starting point for pelvic screws identified as well. Retractors placed. Wound was irrigated and lateral image with penfield 4 placed at the pars of L4 confirmed levels for operation. SP clamp was then placed for the [employer] navigation tracker and secured at L2 for the first set of screws. The wound was then filled with NSS and Z-drape placed. A 3D Zhiem spin was then obtained and registered. Once confirmation of accuracy screws were then placed from T10-L2 using navigation. Navigated high speed stefan was used to make a highway patrol pilot hole followed by a navigated awl-tap passed through the pedicle into the body. A ball tip probe then confirmed within the pedicle. Globus Screws then measured and placed using a navigated screwdriver. After screws were placed from T10-L2 the tracker was replaced at S1 and a second 3D Zhiem spin was then obtained and registered. Once confirmation of accuracy screws were then placed from L3-Pelvis using navigation. AP image confirmed safe placement of screws. Lateral images as well as navigation were then used to place bilateral pelvic screws. Starting point selected just lateral to the SI joint and S2 pseudo facet. Lateral image taken and stefan used to make the highway patrol pilot hole. Gearshift then used to pass into the pelvis under lateral imaging just above the sciatic notch. 30 deg/30deg iliac oblique then taken to confirm within the teardrop and ball tip probe used to probe good bone. Screw was then measured and selected and placed under lateral imaging. This was repeated on the contralateral side. Screws were then visualized and were safe. A second Zheim spin was obtained and confirmed safe screw placement. Screws were then tested, and reliably tested screws tested above 17 mA. The wound was irrigated and attention was turned to decompression, correction and interbody fusion. At L3-4 bilateral laminectomy, complete facetectomy and foraminotomy were performed with high speed stefan, curette and kerrison. The neural elements were less scared at this level; however, it was very unstable. The elements were then protected, and disc space accessed. Sequential shaving performed until desired height and lordosis. Cage selected, and graft placed anterior to the cage within the disc space. Cage was then placed under lateral image, expanded and had good height, lordosis and deformity correction. The wound was irrigated, and meticulous hemostasis performed once again.We then proceeded to L2-3 level. At L2-3 again bilateral laminectomy, complete facetectomy and foraminotomy were performed. Neural elements were mobilized and then protected, and disc space accessed. Sequential shaving performed until desired height and lordosis. Cage selected, and graft placed anterior to the cage within the disc space. Cage was then placed under lateral image, expanded and had good height, lordosis and deformity correction. The wound was irrigated, and meticulous hemostasis performed once again. AP imaging confirmed good placement of all cages and good reduction and coronal balance restored. Screws all in good position. Attention was then drawn to kenrick placement and further reduction. Rods were selected, measured, cut and bent to appropriate lordosis. They were then secured into pelvic screws b/l. Sequential reduction then done into each screw and set screw placed. Set screws were then final tightened and lateral image showed good lordosis reduction. Once rods were secured, cross links were selected and placed and final tightened. The wound was then irrigated with 3L Ancef irrigation, 3L gentamicin irrigation and 3L NSS. Surgicel was then placed on the dura, which was inspected and had no injury. Then, in the posterolateral gutter was placed, MagnatOs, Autograft and allograft. This was impacted into position and surgical placed over it. 2g Vanco powder was then placed deep in the wound. Two deep, subfascial drains were placed and secured with a stitch. We then proceeded with layered closure. #1 PDS placed in the deep fascia followed by a running unidirectional 0 stratafix. 0 Vicryl placed in the deep subq, 2-0 placed in the superficial subq and josi placed in the skin. The wound edges approximated very well. The wound was then cleaned with ETOH and dressed with optifoam dressing, drain sponges and tegaderms. Drains sewed into position. IONM confirmed no changes. The patient was then transferred off the [facility] spine table to their hospital bed a-traumatically. Drains continued to hold suction. The patient was then extubated and transferred to the ICU in stable condition having tolerated the procedure with no complications.
--- NOTE | 2022-09-16 08:38 | P.PN ---
Subjective Progress Note Date: 09/16/22 Principal diagnosis: 1. 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 Lower extremity weakness 3. Lower extremity radiculopathy 4. Neurogenic claudication 5. Hardware failure L2-T12 6. Status post L1 Burst fixation Patient seen and examined this morning. Patient is resting comfortably in bed. Patient is reporting that she is feeling out of sort this morning with jerky movements and feeling unbalanced when ambulating. She states she feels like her mind is cloudy. Discussed her medications and patient states she does not like taking Gabapentin due to similar symptoms in the past. Medications have been adjusted. Surgical dressing to the thoracolumbar region is intact with 1 Hemovac present, maintain to gravity, no compression. Drain output 170ml over night. She states she has been urinating without difficulty. Patient states she was up with therapy yesterday and felt she tolerated activity well. Script for TLSO brace placed in chart. Patient has been afebrile, denies nausea/ vomiting, or chest pain. Objective - Vital Signs Vital signs: Vital Signs Temp 98.9 F 09/16/22 03:38 Pulse 81 09/16/22 04:00 Resp 17 09/16/22 04:00 BP 96/56 09/16/22 03:38 Pulse Ox 94 L 09/16/22 03:38 FiO2 Intake & Output 09/15/22 09/16/22 09/16/22 18:59 06:59 18:59 Intake Total 2740 Output Total 1355 170 Balance 1385 -170 Intake: Intake, IV Titration 1060 Amount Lactated Ringers 1,000 ml 60 @ 20 mls/hr IV .Q24H VERNON Rx#:[id number] Lactated Ringers 1,000 ml 1000 @ 999 mls/hr IV .Q1H1M VERNON Rx#:[id number] Oral 1680 Output: Drainage 305 170 Back 305 170 Urine 1050 Other: Voiding Method Indwelling Catheter Indwelling Catheter # Voids 2 1 - Exam Physical Examination General: The patient is awake and alert, in no acute distress Skin: Skin is warm and dry with no obvious rashes or lesions. Surgical incision to the cervical lumbar region, dressing is clean dry and intact. 1 Hemovac present and patent. Eye: Pupils are equal, round and reactive to light, extra-ocular movements are intact; there is normal conjunctiva bilaterally. Neck: The neck is supple, there is no tenderness and ROM intact. Cardiovascular: There is a regular rate and rhythm. No murmur, rub or gallop is appreciated. Respiratory: Lungs are clear to auscultation, respirations are non-labored, breath sounds are equal. Gastrointestinal: Soft, non-distended, non-tender abdomen. Back: There is no tenderness to palpation in the midline, paralumbar, parathoracic or buttocks region. There is no obvious deformity . Musculoskeletal: ROM limited secondary to pain and stiffness from surgical procedure. Muscle strength in all major muscle groups of bilateral upper extremities 5/5, bilateral lower extremities 4/5. Neurological: CN 2-12 intact. There are no obvious motor or sensory deficits. Movement and coordination equal and intact. Sensory exam to light touch intact C5-T1 and intact from L2-S1. Reflexes 2/4 in bilateral upper and lower extremities. Negative Hoffmans, babinski, and clonus signs. Psychiatric: Cooperative, appropriate mood & affect, normal judgment. - Labs CBC & Chem 7: 09/15/22 07:16 09/15/22 07:16 Assessment and Plan Assessment: Postop day 2: Revision [id number] decompression and fusion 1. 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 Lower extremity weakness 3. Lower extremity radiculopathy 4. Neurogenic claudication 5. Hardware failure L2-T12 6. Status post L1 Burst fixation Plan: -Appreciate sales consultant insurance and team management. -Script for TLSO brace left in chart -Activity: Ambulate QID, OOB all meals, up and about, limit lifting bending twisting to less than 5 lbs. Use walker or cane if needed for stability. -Daily PT/OT, increase ambulation strength and balance. -Brace when up and about, not needed in bed or chair -Pain control: Medications have been adjusted. -Meds: reviewed -GI ppx: senna, Miralax -DVT PPX: Heparin -Hygiene: Shower today. Maintain dressing clean and dry. Meticulous cleaning after BMs away from the incision site -Drains: Maintain for now. DC later today pending out put and PT -Encourage IS 10x/hr -Dispo: Anticipate discharge home within 48-72hrs with homecare *I reviewed and discussed this case with my attending Dr. Acevedo, whom has reviewed this chart and films and is in agreement with assessment and plan of care as outlined above. I have personally seen and examined the patient, performed the documentation and the assessment and plan as written. Number of minutes spent on the visit: 20m.
[2022-09-16] MEDS: DESVENLAFAXINE SUCCINATE 50 MG TAB.ER.24H PO SCH (08:41)
[2022-09-16] MEDS: MAGNESIUM OXIDE 400 MG TAB PO SCH (08:41)
[2022-09-16] MEDS: buPROPion SR 150 MG TABLET.ER PO SCH (08:41)
[2022-09-16 08:44] LABS: Basophils % (A) 0 %; Eosinophils % (A) 0 %; HCT 22.3 % (34.0-46.0); HGB 7.1 gm/dL (11.4-16.0); Lymphocytes # (A) 1.2 k/uL (1.0-4.8); Lymphocytes % (A) 10 %; MCH 30.7 pg (25.0-35.0); MCHC 31.9 g/dL (31.0-37.0); Mean Platelet Volume 8.2; Monocytes # (A) 0.8 k/uL (0-1.0); Monocytes % (A) 7 %; Neutrophils % (A) 81 %; Platelet Count 193 k/uL (150-450); RBC 2.33 m/uL (3.80-5.40); RDW 14.2 % (11.5-15.5); WBC 11.2 k/uL (3.8-10.6)
[2022-09-16 08:45] LABS: African American GFR (CKD) >90 (>60 ml/min/1.73 sqM); Anion Gap 2 mmol/L; Blood Urea Nitrogen 15 mg/dL (7-17); Calcium 7.6 mg/dL (8.4-10.2); Carbon Dioxide 34 mmol/L (22-30); Chloride 97 mmol/L (98-107); Glucose 116 mg/dL (74-99); Non-African American GFR(CKD) 88 (>60 ml/min/1.73 sqM); Potassium 3.9 mmol/L (3.5-5.1); Sodium 133 mmol/L (137-145)
[2022-09-16] MEDS: CYCLOBENZAPRINE 5 MG TAB PO PRN (11:29)
[2022-09-16] MEDS: HYDROcodone/APAP 10-325MG 1 EACH TAB PO PRN (11:29)
--- NOTE | 2022-09-16 13:01 | P.PN ---
Subjective Progress Note Date: 09/16/22 Subjective: The and examined at bedside. No acute events overnight. Complaining of incr eased pain in her right thigh. Also feels confused. She denies any lightheadedness, shortness of breath, palpitations, nausea, vomiting, diarrhea, constipation, or urinary complaints. Pertinent positives and negatives as discussed above, a complete review of systems was performed and all other systems are negative. Vitals Signs Reviewed. General: nontoxic, no distress, appears at stated age Derm: warm, dry, dressing not observed Head: atraumatic, normocephalic, symmetric Eyes: EOMI, no lid lag, anicteric sclera Mouth: no lip lesion, mucus membranes moist Cardiovascular: S1S2 reg, no murmur Lungs: CTA bilateral, no rhonchi, no rales , no accessory muscle use Abdominal: soft, nontender to palpation, no guarding, no appreciable organomegaly Ext: no gross muscle atrophy, no edema, no contractures Neuro: CN II-XI grossly intact, no focal neuro deficits Psych: Alert, oriented 3, appropriate affect Data Reviewed Today: Pertinent Labs: Hemoglobin 7.1, sodium 133, potassium 3.9, creatinine 0.73 Imaging: None today Assessment and Plan: Active: Status post T10 to pelvis decompression and fusion revision surgery Hypotension, resolved Acute blood loss anemia, expected outcome of surgery Hypokalemia, resolved -Orthospine note reviewed, gabapentin discontinued -On oral Tylenol, IV Dilaudid as needed, oral [place] for pain -Given another 1 L of LR, blood pressure improving -No active bleeding, continue to monitor CBC -Holding home antihypertensives Chronic: Depression Anxiety Dyslipidemia Thank you for allowing us to participate in the care of this pleasant patient. Do not hesitate to contact us with questions. Someone can be reached from the [facility] hospitalist group all hours of the day at [phone] or via [employer]. Objective - Vital Signs Vital signs: Vital Signs Temp 98.5 F 09/16/22 11:34 Pulse 85 09/16/22 11:34 Resp 18 09/16/22 11:32 BP 93/54 09/16/22 11:34 Pulse Ox 94 L 09/16/22 11:32 FiO2 Intake & Output 09/15/22 09/16/22 09/16/22 18:59 06:59 18:59 Intake Total 2740 540 Output Total 1355 170 Balance 1385 -170 540 Intake: Intake, IV Titration 1060 Amount Lactated Ringers 1,000 ml 60 @ 20 mls/hr IV .Q24H VERNON Rx#:[id number] Lactated Ringers 1,000 ml 1000 @ 999 mls/hr IV .Q1H1M VERNON Rx#:[id number] Oral 1680 540 Blood Product 0 Rc As-1 Unit 0 [id number] Output: Drainage 305 170 Back 305 170 Urine 1050 Other: Voiding Method Indwelling Catheter Indwelling Catheter # Voids 2 1 - Labs CBC & Chem 7: 09/16/22 07:26 09/16/22 07:26 Labs: Abnormal Lab Results - Last 24 Hours (Table) 09/14/22 09/16/22 09/16/22 Range/Units 15:00 07:26 07:26 WBC 11.2 H (3.8-10.6) k/uL RBC 2.33 L (3.80-5.40) m/uL Hgb 7.1 L (11.4-16.0) gm/dL Hct 22.3 L (34.0-46.0) % Neutrophils # 9.0 H (1.3-7.7) k/uL Sodium 133 L (137-145) mmol/L Chloride 97 L (98-107) mmol/L Carbon Dioxide 34 H (22-30) mmol/L Glucose 116 H (74-99) mg/dL Calcium 7.6 L (8.4-10.2) mg/dL Crossmatch See Detail
[2022-09-16] MEDS: HYDROmorphone 1 MG/ML 1 ML SYRINGE IVP PRN (14:32)
[2022-09-16 16:58] LABS: HCT 25.7 % (34.0-46.0); HGB 8.2 gm/dL (11.4-16.0); MCH 30.5 pg (25.0-35.0); MCV 95.2 fL (80.0-100.0); Mean Platelet Volume 7.9; Platelet Count 195 k/uL (150-450); RDW 14.8 % (11.5-15.5); WBC 11.6 k/uL (3.8-10.6)
[2022-09-16] MEDS: ATORVASTATIN 40 MG TAB PO SCH (20:39)
[2022-09-17] MEDS: HYDROcodone/APAP 10-325MG 1 EACH TAB PO PRN ×5 (00:45→23:45)
[2022-09-17] MEDS: HYDROmorphone 1 MG/ML 1 ML SYRINGE IVP PRN ×3 (02:05→11:32)
[2022-09-17] MEDS: HYDROmorphone 0.5 MG/0.5 ML SYRINGE IVP PRN ×2 (05:09→18:06)
[2022-09-17] MEDS: LACTATED RINGERS 1,000 ML IV SCH (06:46)
--- NOTE | 2022-09-17 08:31 | P.PN ---
Subjective Progress Note Date: 09/17/22 Principal diagnosis: 1. 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 Lower extremity weakness 3. Lower extremity radiculopathy 4. Neurogenic claudication 5. Hardware failure L2-T12 6. Status post L1 Burst fixation Patient seen and examined this morning. Patient is sitting up in chair. Tabatha ent is feeling much better this morning. She is requesting to be able to get up and ambulate in room and hallways. Informed patient that she needs to ask for assistance until she is cleared from PT that she is safe independent with walker. Surgical dressing to the thoracolumbar region has been changed this morning, hemovac has been discontinued. Patient continues to deny and numbness or tingling to her bilateral lower extremities. Patient has been afebrile, denies nausea/vomiting, or chest pain. Objective - Vital Signs Vital signs: Vital Signs Temp 97.6 F 09/17/22 04:55 Pulse 98 09/17/22 04:55 Resp 20 09/17/22 04:55 BP 92/62 09/17/22 04:55 Pulse Ox 96 09/17/22 04:55 FiO2 Intake & Output 09/16/22 09/17/22 09/17/22 18:59 06:59 18:59 Intake Total 1090 Output Total 120 Balance 1090 -120 Intake: Oral 780 Blood Product 310 Rc As-1 Unit 310 [id number] Output: Drainage 120 Back 120 Other: Voiding Method Indwelling Catheter # Voids 1 - Exam Physical Examination General: The patient is awake and alert, in no acute distress Skin: Skin is warm and dry with no obvious rashes or lesions. Surgical incision to the thoracolumbar region, dressing is clean dry and intact. Eye: Pupils are equal, round and reactive to light, extra-ocular movements are intact; there is normal conjunctiva bilaterally. Neck: The neck is supple, there is no tenderness and ROM intact. Cardiovascular: There is a regular rate and rhythm. No murmur, rub or gallop is appreciated. Respiratory: Lungs are clear to auscultation, respirations are non-labored, breath sounds are equal. Gastrointestinal: Soft, non-distended, non-tender abdomen. Back: There is no tenderness to palpation in the midline, paralumbar, parathoracic or buttocks region. There is no obvious deformity . Musculoskeletal: ROM limited secondary to pain and stiffness from surgical procedure. Muscle strength in all major muscle groups of bilateral upper extremities 5/5, bilateral lower extremities 4/5. Neurological: CN 2-12 intact. There are no obvious motor or sensory deficits. Movement and coordination equal and intact. Sensory exam to light touch intact C5-T1 and intact from L2-S1. Reflexes 2/4 in bilateral upper and lower extremities. Negative Hoffmans, babinski, and clonus signs. Psychiatric: Cooperative, appropriate mood & affect, normal judgment. - Labs CBC & Chem 7: 09/16/22 15:37 09/16/22 07:26 Labs: Abnormal Lab Results - Last 24 Hours (Table) 09/14/22 09/16/22 09/16/22 Range/Units 15:00 07:26 07:26 WBC 11.2 H (3.8-10.6) k/uL RBC 2.33 L (3.80-5.40) m/uL Hgb 7.1 L (11.4-16.0) gm/dL Hct 22.3 L (34.0-46.0) % Neutrophils # 9.0 H (1.3-7.7) k/uL Sodium 133 L (137-145) mmol/L Chloride 97 L (98-107) mmol/L Carbon Dioxide 34 H (22-30) mmol/L Glucose 116 H (74-99) mg/dL Calcium 7.6 L (8.4-10.2) mg/dL Crossmatch See Detail 09/16/22 Range/Units 15:37 WBC 11.6 H (3.8-10.6) k/uL RBC 2.70 L (3.80-5.40) m/uL Hgb 8.2 L (11.4-16.0) gm/dL Hct 25.7 L (34.0-46.0) % Neutrophils # (1.3-7.7) k/uL Sodium (137-145) mmol/L Chloride (98-107) mmol/L Carbon Dioxide (22-30) mmol/L Glucose (74-99) mg/dL Calcium (8.4-10.2) mg/dL Crossmatch Assessment and Plan Assessment: Postop day 3: Revision [id number] decompression and fusion 1. 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 Lower extremity weakness 3. Lower extremity radiculopathy 4. Neurogenic claudication 5. Hardware failure L2-T12 6. Status post L1 Burst fixation Plan: -Appreciate data power consultant and team management. -Activity: Ambulate QID, OOB all meals, up and about, limit lifting bending twisting to less than 5 lbs. Use walker or cane if needed for stability. -Daily PT/OT, increase ambulation strength and balance, -Patient reports she has a walker at home -Brace when up and about, not needed in bed or chair -Pain control: Medications have been adjusted. -Meds: reviewed -GI ppx: senna, Miralax -DVT PPX: Heparin -Hygiene: Shower today. Maintain dressing clean and dry. Meticulous cleaning after BMs away from the incision site -Encourage IS 10x/hr -Dispo: Anticipate discharge home within 48hrs with homecare *I reviewed and discussed this case with my attending Dr. Acevedo, whom has reviewed this chart and films and is in agreement with assessment and plan of care as outlined above. I have personally seen and examined the patient, performed the documentation and the assessment and plan as written. Number of minutes spent on the visit: 20m.
[2022-09-17 09:01] LABS: Basophils % (A) 0 %; Eosinophils # (A) 0.2 k/uL (0-0.7); Eosinophils % (A) 2 %; HCT 24.6 % (34.0-46.0); HGB 8.1 gm/dL (11.4-16.0); Lymphocytes # (A) 1.2 k/uL (1.0-4.8); Lymphocytes % (A) 13 %; MCH 31.2 pg (25.0-35.0); MCHC 33.1 g/dL (31.0-37.0); MCV 94.1 fL (80.0-100.0); Mean Platelet Volume 7.8; Monocytes # (A) 0.5 k/uL (0-1.0); Monocytes % (A) 6 %; Neutrophils # (A) 7.6 k/uL (1.3-7.7); Neutrophils % (A) 79 %; Platelet Count 208 k/uL (150-450); RBC 2.61 m/uL (3.80-5.40); RDW 14.9 % (11.5-15.5); WBC 9.7 k/uL (3.8-10.6)
[2022-09-17] MEDS: MAGNESIUM OXIDE 400 MG TAB PO SCH (09:09)
[2022-09-17] MEDS: buPROPion SR 150 MG TABLET.ER PO SCH (09:09)
[2022-09-17] MEDS: DESVENLAFAXINE SUCCINATE 50 MG TAB.ER.24H PO SCH (09:09)
[2022-09-17] MEDS: CYCLOBENZAPRINE 5 MG TAB PO PRN ×2 (09:24→17:03)
[2022-09-17 09:45] LABS: ALT 44 U/L (4-34); AST 83 U/L (14-36); African American GFR (CKD) >90 (>60 ml/min/1.73 sqM); Albumin 2.8 g/dL (3.5-5.0); Alkaline Phosphatase 65 U/L (38-126); Anion Gap 4 mmol/L; Blood Urea Nitrogen 12 mg/dL (7-17); Calcium 7.6 mg/dL (8.4-10.2); Carbon Dioxide 31 mmol/L (22-30); Chloride 95 mmol/L (98-107); Glucose 187 mg/dL (74-99); Non-African American GFR(CKD) >90 (>60 ml/min/1.73 sqM); Sodium 130 mmol/L (137-145); Total Bilirubin 0.7 mg/dL (0.2-1.3); Total Protein 5.1 g/dL (6.3-8.2)
--- NOTE | 2022-09-17 11:44 | P.PN ---
Subjective Progress Note Date: 09/17/22 Subjective: Patient seen and examined at bedside. No acute events overnight. Still having significant back pain and lower extremity pain. She denies any lightheadedness, shortness of breath, palpitations, nausea, vomiting, diarrhea, constipation, or urinary complaints. Pertinent positives and negatives as discussed above, a complete review of systems was performed and all other systems are negative. Vitals Signs Reviewed. General: nontoxic, no distress, appears at stated age Derm: warm, dry, dressing not observed Head: atraumatic, normocephalic, symmetric Eyes: EOMI, no lid lag, anicteric sclera Mouth: no lip lesion, mucus membranes moist Cardiovascular: S1S2 reg, no murmur Lungs: CTA bilateral, no rhonchi, no rales , no accessory muscle use Abdominal: soft, nontender to palpation, no guarding, no appreciable organomegaly Ext: no gross muscle atrophy, no edema, no contractures Neuro: CN II-XI grossly intact, no focal neuro deficits Psych: Alert, oriented 3, appropriate affect Data Reviewed Today: Pertinent Labs: Hemoglobin 8.1, sodium 1:30, bicarb 31, creatinine 0.6, mildly elevated AST and ALT, total bili is normal Imaging: None today Assessment and Plan: Active: Status post T10 to pelvis decompression and fusion revision surgery Hypotension, resolved Acute blood loss anemia, expected outcome of surgery, status post 1 unit of PRBCs Hypokalemia, resolved Transaminitis Hyponatremia -Orthospine note reviewed, pending physical therapy evaluation -On oral Tylenol, IV Dilaudid as needed, oral [place] for pain -Hemoglobin improved, status post 1 unit of PRBCs -Holding home antihypertensives -No right upper quadrant pain -Hyponatremia possibly SIADH in the setting of pain, patient appears euvolemic Chronic: Depression Anxiety Dyslipidemia Thank you for allowing us to participate in the care of this pleasant patient. Do not hesitate to contact us with questions. Someone can be reached from the [facility] hospitalist group all hours of the day at [phone] or via perfect serve. Objective - Vital Signs Vital signs: Vital Signs Temp 97.9 F 09/17/22 09:00 Pulse 93 09/17/22 09:00 Resp 20 09/17/22 09:00 BP 131/78 09/17/22 09:00 Pulse Ox 98 09/17/22 09:00 FiO2 Intake & Output 09/16/22 09/17/22 09/17/22 18:59 06:59 18:59 Intake Total 1090 598 Output Total 120 Balance 1090 -120 598 Intake: Oral 780 598 Blood Product 310 Rc As-1 Unit 310 [id number] Output: Drainage 120 Back 120 Other: Voiding Method Indwelling Catheter # Voids 1 - Labs CBC & Chem 7: 09/17/22 08:01 09/17/22 08:01 Labs: Abnormal Lab Results - Last 24 Hours (Table) 09/14/22 09/16/22 09/17/22 Range/Units 15:00 15:37 08:01 WBC 11.6 H (3.8-10.6) k/uL RBC 2.70 L 2.61 L (3.80-5.40) m/uL Hgb 8.2 L 8.1 L (11.4-16.0) gm/dL Hct 25.7 L 24.6 L (34.0-46.0) % Sodium (137-145) mmol/L Chloride (98-107) mmol/L Carbon Dioxide (22-30) mmol/L Glucose (74-99) mg/dL Calcium (8.4-10.2) mg/dL AST (14-36) U/L ALT (4-34) U/L Total Protein (6.3-8.2) g/dL Albumin (3.5-5.0) g/dL Crossmatch See Detail 09/17/22 Range/Units 08:01 WBC (3.8-10.6) k/uL RBC (3.80-5.40) m/uL Hgb (11.4-16.0) gm/dL Hct (34.0-46.0) % Sodium 130 L (137-145) mmol/L Chloride 95 L (98-107) mmol/L Carbon Dioxide 31 H (22-30) mmol/L Glucose 187 H (74-99) mg/dL Calcium 7.6 L (8.4-10.2) mg/dL AST 83 H (14-36) U/L ALT 44 H (4-34) U/L Total Protein 5.1 L (6.3-8.2) g/dL Albumin 2.8 L (3.5-5.0) g/dL Crossmatch
[2022-09-17] MEDS: HYDROcodone/APAP 5-325MG 1 EACH TAB PO PRN (13:28)
[2022-09-17] MEDS: ATORVASTATIN 40 MG TAB PO SCH (20:13)
[2022-09-17] MEDS: HEPARIN SODIUM,PORCINE/PF 5,000 UNIT/0.5 ML SYRINGE SQ SCH (20:13)
[2022-09-18] MEDS: LACTATED RINGERS 1,000 ML IV SCH (02:51)
[2022-09-18] MEDS: HYDROcodone/APAP 10-325MG 1 EACH TAB PO PRN ×3 (03:40→21:52)
[2022-09-18 06:01] LABS: WBC 7.1 k/uL (3.8-10.6)
[2022-09-18 06:02] LABS: Basophils % (A) 0 %; Eosinophils # (A) 0.2 k/uL (0-0.7); Eosinophils % (A) 2 %; HCT 24.3 % (34.0-46.0); HGB 7.9 gm/dL (11.4-16.0); Lymphocytes # (A) 0.8 k/uL (1.0-4.8); Lymphocytes % (A) 12 %; MCH 30.7 pg (25.0-35.0); MCHC 32.5 g/dL (31.0-37.0); MCV 94.6 fL (80.0-100.0); Mean Platelet Volume 9.5; Monocytes # (A) 0.5 k/uL (0-1.0); Monocytes % (A) 7 %; Neutrophils # (A) 5.4 k/uL (1.3-7.7); Neutrophils % (A) 77 %; Platelet Count 206 k/uL (150-450); RBC 2.57 m/uL (3.80-5.40)
[2022-09-18 06:15] LABS: African American GFR (CKD) >90 (>60 ml/min/1.73 sqM); Anion Gap 4 mmol/L; Blood Urea Nitrogen 9 mg/dL (7-17); Calcium 7.7 mg/dL (8.4-10.2); Carbon Dioxide 36 mmol/L (22-30); Chloride 94 mmol/L (98-107); Glucose 110 mg/dL (74-99); Non-African American GFR(CKD) >90 (>60 ml/min/1.73 sqM); Potassium 3.6 mmol/L (3.5-5.1); Sodium 134 mmol/L (137-145)
[2022-09-18] MEDS: SODIUM CHLORIDE 0.9% 1,000 ML IV SCH ×2 (08:08→22:04)
[2022-09-18] MEDS: MAGNESIUM OXIDE 400 MG TAB PO SCH (08:09)
[2022-09-18] MEDS: buPROPion SR 150 MG TABLET.ER PO SCH (08:09)
[2022-09-18] MEDS: HEPARIN SODIUM,PORCINE/PF 5,000 UNIT/0.5 ML SYRINGE SQ SCH ×2 (08:09→19:39)
[2022-09-18] MEDS: DESVENLAFAXINE SUCCINATE 50 MG TAB.ER.24H PO SCH (08:09)
--- NOTE | 2022-09-18 08:48 | P.PN ---
Subjective Progress Note Date: 09/18/22 Principal diagnosis: 1. 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 Lower extremity weakness 3. Lower extremity radiculopathy 4. Neurogenic claudication 5. Hardware failure L2-T12 6. Status post L1 Burst fixation Patient seen and examined this morning. Patient is sitting upright in bed. Patient reports that she is feeling much better and is wanting to go home. Informed patient that she will need to receive 1 unit of RBCs due to decreased hemoglobin and hematocrit. Explained to patient that we can reevaluate later this afternoon. Surgical dressing is clean dry and intact. Patient has been afebrile, denies nausea/vomiting, or chest pain. Objective - Vital Signs Vital signs: Vital Signs Temp 98.2 F 09/17/22 15:13 Pulse 104 H 09/18/22 04:00 Resp 18 09/18/22 04:00 BP 98/60 09/18/22 04:00 Pulse Ox 91 L 09/18/22 04:00 FiO2 Intake & Output 09/17/22 09/18/22 09/18/22 18:59 06:59 18:59 Intake Total 826 Balance 826 Intake: Oral 826 Other: Voiding Method Toilet Toilet # Voids 4 2 # Bowel Movements 0 - Exam Physical Examination General: The patient is awake and alert, in no acute distress Skin: Skin is warm and dry with no obvious rashes or lesions. Surgical incision to the thoracolumbar region, dressing is clean dry and intact. Eye: Pupils are equal, round and reactive to light, extra-ocular movements are intact; there is normal conjunctiva bilaterally. Neck: The neck is supple, there is no tenderness and ROM intact. Cardiovascular: There is a regular rate and rhythm. No murmur, rub or gallop is appreciated. Respiratory: Lungs are clear to auscultation, respirations are non-labored, breath sounds are equal. Gastrointestinal: Soft, non-distended, non-tender abdomen. Back: There is no tenderness to palpation in the midline, paralumbar, parathoracic or buttocks region. There is no obvious deformity . Musculoskeletal: ROM limited secondary to pain and stiffness from surgical procedure. Muscle strength in all major muscle groups of bilateral upper extremities 5/5, bilateral lower extremities 4/5. Neurological: CN 2-12 intact. There are no obvious motor or sensory deficits. Movement and coordination equal and intact. Sensory exam to light touch intact C5-T1 and intact from L2-S1. Reflexes 2/4 in bilateral upper and lower extremities. Negative Hoffmans, babinski, and clonus signs. Psychiatric: Cooperative, appropriate mood & affect, normal judgment. - Labs CBC & Chem 7: 09/18/22 05:47 09/18/22 05:47 Labs: Abnormal Lab Results - Last 24 Hours (Table) 09/17/22 09/17/22 09/18/22 Range/Units 08:01 08:01 05:47 RBC 2.61 L 2.57 L (3.80-5.40) m/uL Hgb 8.1 L 7.9 L (11.4-16.0) gm/dL Hct 24.6 L 24.3 L (34.0-46.0) % Lymphocytes # 0.8 L (1.0-4.8) k/uL Sodium 130 L (137-145) mmol/L Chloride 95 L (98-107) mmol/L Carbon Dioxide 31 H (22-30) mmol/L Glucose 187 H (74-99) mg/dL Calcium 7.6 L (8.4-10.2) mg/dL AST 83 H (14-36) U/L ALT 44 H (4-34) U/L Total Protein 5.1 L (6.3-8.2) g/dL Albumin 2.8 L (3.5-5.0) g/dL 09/18/22 Range/Units 05:47 RBC (3.80-5.40) m/uL Hgb (11.4-16.0) gm/dL Hct (34.0-46.0) % Lymphocytes # (1.0-4.8) k/uL Sodium 134 L (137-145) mmol/L Chloride 94 L (98-107) mmol/L Carbon Dioxide 36 H (22-30) mmol/L Glucose 110 H (74-99) mg/dL Calcium 7.7 L (8.4-10.2) mg/dL AST (14-36) U/L ALT (4-34) U/L Total Protein (6.3-8.2) g/dL Albumin (3.5-5.0) g/dL Assessment and Plan Assessment: Postop day 4: Revision [id number] decompression and fusion 1. 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 Lower extremity weakness 3. Lower extremity radiculopathy 4. Neurogenic claudication 5. Hardware failure L2-T12 6. Status post L1 Burst fixation 7. Post-op anemia Plan: -Appreciate heritage consultant and team management. -Transfuse 1u RBC -Activity: Ambulate QID, OOB all meals, up and about, limit lifting bending twisting to less than 5 lbs. Use walker or cane if needed for stability. -Daily PT/OT, increase ambulation strength and balance, -Patient reports she has a walker at home -Brace when up and about, not needed in bed or chair -Pain control: Medications have been adjusted. -Meds: reviewed -GI ppx: senna, Miralax -DVT PPX: Heparin -Hygiene: Shower today. Maintain dressing clean and dry. Meticulous cleaning after BMs away from the incision site -Encourage IS 10x/hr -Dispo: Anticipate discharge home within 24hrs with homecare *I reviewed and discussed this case with my attending Dr. Acevedo, whom has reviewed this chart and films and is in agreement with assessment and plan of care as outlined above. I have personally seen and examined the patient, performed the documentation and the assessment and plan as written. Number of minutes spent on the visit: 20m.
[2022-09-18] MEDS: HYDROcodone/APAP 5-325MG 1 EACH TAB PO PRN ×2 (10:02→19:39)
--- NOTE | 2022-09-18 12:29 | P.PN ---
Subjective Progress Note Date: 09/18/22 Subjective: Patient seen and examined at bedside. No acute events overnight. Still having significant back pain and lower extremity pain. She denies any lightheadedness, shortness of breath, palpitations, nausea, vomiting, diarrhea, constipation, or urinary complaints. Pertinent positives and negatives as discussed above, a complete review of systems was performed and all other systems are negative. Vitals Signs Reviewed. General: nontoxic, no distress, appears at stated age Derm: warm, dry, dressing not observed Head: atraumatic, normocephalic, symmetric Eyes: EOMI, no lid lag, anicteric sclera Mouth: no lip lesion, mucus membranes moist Cardiovascular: S1S2 reg, no murmur Lungs: CTA bilateral, no rhonchi, no rales , no accessory muscle use Abdominal: soft, nontender to palpation, no guarding, no appreciable organomegaly Ext: no gross muscle atrophy, no edema, no contractures Neuro: CN II-XI grossly intact, no focal neuro deficits Psych: Alert, oriented 3, appropriate affect Data Reviewed Today: Pertinent Labs: Hemoglobin 7.9, sodium 134, creatinine 0.61 Imaging: None today Assessment and Plan: Active: Status post T10 to pelvis decompression and fusion revision surgery Hypotension, resolved Acute blood loss anemia, expected outcome of surgery, status post 1 unit of PRBCs Hypokalemia, resolved Transaminitis Hyponatremia -Orthospine note reviewed, pending another 1 unit of RBCs, likely dc in 24 hours -On oral Tylenol, IV Dilaudid as needed, oral [place] for pain -Holding home antihypertensives -No right upper quadrant pain -Hyponatremia possibly SIADH in the setting of pain, patient appears euvolemic Chronic: Depression Anxiety Dyslipidemia Thank you for allowing us to participate in the care of this pleasant patient. Do not hesitate to contact us with questions. Someone can be reached from the [facility] hospitalist group all hours of the day at [phone] or via perfect serve. Objective - Vital Signs Vital signs: Vital Signs Temp 98.6 F 09/18/22 12:12 Pulse 92 09/18/22 12:12 Resp 16 09/18/22 12:12 BP 106/58 09/18/22 12:12 Pulse Ox 91 L 09/18/22 12:12 FiO2 Intake & Output 09/17/22 09/18/22 09/18/22 18:59 06:59 18:59 Intake Total 826 180 Output Total 120 Balance 826 60 Intake: Oral 826 180 Blood Product 0 Rc As-1 Unit 0 [id number] Output: Drainage 120 Back 120 Other: Voiding Method Toilet Toilet Toilet # Voids 4 2 # Bowel Movements 0 - Labs CBC & Chem 7: 09/18/22 05:47 09/18/22 05:47 Labs: Abnormal Lab Results - Last 24 Hours (Table) 09/18/22 09/18/22 09/18/22 Range/Units 05:47 05:47 07:33 RBC 2.57 L (3.80-5.40) m/uL Hgb 7.9 L (11.4-16.0) gm/dL Hct 24.3 L (34.0-46.0) % Lymphocytes # 0.8 L (1.0-4.8) k/uL Sodium 134 L (137-145) mmol/L Chloride 94 L (98-107) mmol/L Carbon Dioxide 36 H (22-30) mmol/L Glucose 110 H (74-99) mg/dL Calcium 7.7 L (8.4-10.2) mg/dL Crossmatch See Detail
[2022-09-18] MEDS: SENNOSIDES-DOCUSATE SODIUM 1 EACH TAB PO PRN (15:25)
[2022-09-18 15:29] VITALS: BMI 29.2
[2022-09-18] MEDS: ATORVASTATIN 40 MG TAB PO SCH (19:39)
[2022-09-19] MEDS: HYDROcodone/APAP 10-325MG 1 EACH TAB PO PRN ×3 (02:09→10:51)
[2022-09-19] MEDS ORDERED: FERROUS SULFATE 325 MG TAB PO SCH (07:30)
[2022-09-19] MEDS: DESVENLAFAXINE SUCCINATE 50 MG TAB.ER.24H PO SCH (07:52)
[2022-09-19] MEDS: buPROPion SR 150 MG TABLET.ER PO SCH (07:52)
[2022-09-19] MEDS: HYDROmorphone 0.5 MG/0.5 ML SYRINGE IVP PRN (07:53)
[2022-09-19] MEDS: MAGNESIUM OXIDE 400 MG TAB PO SCH (07:53)
[2022-09-19] MEDS: HEPARIN SODIUM,PORCINE/PF 5,000 UNIT/0.5 ML SYRINGE SQ SCH (07:53)
[2022-09-19] MEDS: SODIUM CHLORIDE 0.9% 1,000 ML IV SCH (08:02)
[2022-09-19 08:47] LABS: African American GFR (CKD) >90 (>60 ml/min/1.73 sqM); Anion Gap 5 mmol/L; Blood Urea Nitrogen 5 mg/dL (7-17); Calcium 7.6 mg/dL (8.4-10.2); Carbon Dioxide 35 mmol/L (22-30); Chloride 97 mmol/L (98-107); Glucose 102 mg/dL (74-99); Non-African American GFR(CKD) >90 (>60 ml/min/1.73 sqM); Potassium 3.5 mmol/L (3.5-5.1); Sodium 137 mmol/L (137-145)
[2022-09-19] MEDS ORDERED: Potassium Replacement Protocol 1 EACH MISC MISCELLANE PRN (08:49)
[2022-09-19] MEDS: POTASSIUM CHLORIDE ER 20 MEQ TAB.ER PO SCH ×2 (09:04→10:51)
[2022-09-19 09:05] LABS: Basophils % (A) 0 %; Eosinophils # (A) 0.1 k/uL (0-0.7); Eosinophils % (A) 2 %; HCT 29.5 % (34.0-46.0); Lymphocytes # (A) 0.8 k/uL (1.0-4.8); Lymphocytes % (A) 14 %; MCH 30.4 pg (25.0-35.0); MCHC 32.7 g/dL (31.0-37.0); MCV 92.9 fL (80.0-100.0); Mean Platelet Volume 8.3; Monocytes # (A) 0.5 k/uL (0-1.0); Monocytes % (A) 9 %; Neutrophils # (A) 4.4 k/uL (1.3-7.7); Neutrophils % (A) 73 %; Platelet Count 262 k/uL (150-450); RBC 3.18 m/uL (3.80-5.40); RDW 15.2 % (11.5-15.5)
[2022-09-19 09:09] VITALS: TEMP 98.4
[2022-09-19 09:20] LABS: HGB 9.7 gm/dL (11.4-16.0)
--- NOTE | 2022-09-19 10:42 | P.PN ---
Subjective Progress Note Date: 09/19/22 Principal diagnosis: 1. 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 Lower extremity weakness 3. Lower extremity radiculopathy 4. Neurogenic claudication 5. Hardware failure L2-T12 6. Status post L1 Burst fixation Patient seen and examined this morning. Patient is sitting in chair at bedside. Patient reports that she is wanting to go home. She states her pain has been managed on current regimen. Patients hgb and bp has been stable overnight. Surgical incision is well approximated with josi intact, no drainage noted. Surgical dressing has been changed this morning. Patient has been afebrile, denies nausea/vomiting, or chest pain. Objective - Vital Signs Vital signs: Vital Signs Temp 98.4 F 09/19/22 07:45 Pulse 90 09/19/22 07:45 Resp 16 09/19/22 07:45 BP 125/85 09/19/22 07:45 Pulse Ox 96 09/19/22 07:45 FiO2 Intake & Output 09/18/22 09/19/22 09/19/22 18:59 06:59 18:59 Intake Total 730 2260 0 Output Total 120 Balance 610 2260 0 Weight 72.4 kg Intake: Intake, IV Titration 900 Amount Sodium Chloride 0.9% 1, 900 000 ml @ 75 mls/hr IV . [id number] [facility] Rx#:[id number] Oral 420 1360 0 Blood Product 310 Rc As-1 Unit 310 [id number] Output: Drainage 120 Back 120 Other: Voiding Method Toilet Toilet Toilet # Voids 1 2 - Exam Physical Examination General: The patient is awake and alert, in no acute distress Skin: Skin is warm and dry with no obvious rashes or lesions. Surgical incision to the thoracolumbar region, dressing is clean dry and intact. Eye: Pupils are equal, round and reactive to light, extra-ocular movements are intact; there is normal conjunctiva bilaterally. Neck: The neck is supple, there is no tenderness and ROM intact. Cardiovascular: There is a regular rate and rhythm. No murmur, rub or gallop is appreciated. Respiratory: Lungs are clear to auscultation, respirations are non-labored, breath sounds are equal. Gastrointestinal: Soft, non-distended, non-tender abdomen. Back: There is no tenderness to palpation in the midline, paralumbar, parathoracic or buttocks region. There is no obvious deformity . Musculoskeletal: ROM limited secondary to pain and stiffness from surgical procedure. Muscle strength in all major muscle groups of bilateral upper extremities 5/5, bilateral lower extremities 4/5. Neurological: CN 2-12 intact. There are no obvious motor or sensory deficits. Movement and coordination equal and intact. Sensory exam to light touch intact C5-T1 and intact from L2-S1. Reflexes 2/4 in bilateral upper and lower extremities. Negative Hoffmans, babinski, and clonus signs. Psychiatric: Cooperative, appropriate mood & affect, normal judgment. - Labs CBC & Chem 7: 09/19/22 07:59 09/19/22 07:58 Labs: Abnormal Lab Results - Last 24 Hours (Table) 09/18/22 09/19/22 09/19/22 Range/Units 07:33 07:58 07:59 RBC 3.18 L (3.80-5.40) m/uL Hgb 9.7 L D (11.4-16.0) gm/dL Hct 29.5 L (34.0-46.0) % Lymphocytes # 0.8 L (1.0-4.8) k/uL Chloride 97 L (98-107) mmol/L Carbon Dioxide 35 H (22-30) mmol/L BUN 5 L (7-17) mg/dL Glucose 102 H (74-99) mg/dL Calcium 7.6 L (8.4-10.2) mg/dL Crossmatch See Detail Assessment and Plan Assessment: Postop day 5: Revision [id number] decompression and fusion 1. 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 Lower extremity weakness 3. Lower extremity radiculopathy 4. Neurogenic claudication 5. Hardware failure L2-T12 6. Status post L1 Burst fixation 7. Post-op anemia Plan: -Appreciate customer relations consultant and team management. -Activity: Ambulate QID, OOB all meals, up and about, limit lifting bending twisting to less than 5 lbs. Use walker or cane if needed for stability. -Daily PT/OT, increase ambulation strength and balance, -Patient reports she has a walker at home -Brace when up and about, not needed in bed or chair -Pain control: Medications have been adjusted. -Meds: reviewed -GI ppx: senna, Miralax -DVT PPX: Heparin -Hygiene: Shower today. Maintain dressing clean and dry. Meticulous cleaning after BMs away from the incision site -Encourage IS 10x/hr -Dispo: Anticipate discharge home today with homecare *I reviewed and discussed this case with my attending Dr. Acevedo, whom has reviewed this chart and films and is in agreement with assessment and plan of care as outlined above. I have personally seen and examined the patient, performed the documentation and the assessment and plan as written. Number of minutes spent on the visit: 20m.
--- NOTE | 2022-09-19 10:57 | P.DS ---
Providers Date of admission: 09/14/22 06:27 Expected date of discharge: 09/19/22 Attending physician: Ricardo Acevedo DO Consults: 09/14/22 13:47 Consult Physician Routine Consulting Provider: Nadira Aponte Consult Reason/Comments: medical management s/p [id number] decompression fusion Do you want consulting provider notified?: Yes Primary care physician: [place] Hospital Course: Hospital Course: The patient was evaluated preoperatively and found to have the diagnosis of lumbar spondylosis with stenosis. They underwent appropriate preoperative care and were willing to undergo the intended procedure. They underwent a successful revision [id number] decompression and fusion, were recovered appropriately and sent to the floor. While on the floor they worked with physical therapy, occupational therapy and nursing to enhance their recovery experience. Their pain was well controlled through their stay and they were started on appropriate medications, DVT ppx modalities, activity and dietary needs. Daily labs were monitored closely, and transfusions were only used when necessary. Medicine as well as other consulting services have made their input and have helped with our team approach and multidisciplinary care. PT milestones have been met and passed and they have made the recommendation of home with home care for this patient and treating providers agree with this care path. The patient will be discharged home with appropriate medications, instructions and follow-up information and in stable condition. Patient Condition at Discharge: Good Plan - Discharge Summary Discharge Rx Participant: No New Discharge Prescriptions: New cefaDROXiL [Duricef] 500 mg PO Q12HR 5 Days #10 cap HYDROcodone/APAP 10-325MG [[place] 10-325] 1 tab PO Q4-6H PRN #42 tab PRN Reason: Pain Ferrous Sulfate [Feosol] 325 mg PO BID #60 tab Cyclobenzaprine [Flexeril] 5 mg PO TID PRN #60 tablet PRN Reason: Muscle Spasm No Action Metoprolol Tartrate [Lopressor] 100 mg PO DAILY Desvenlafaxine Succinate [Pristiq] 200 mg PO DAILY Magnesium Oxide [Val[place]] 500 mg PO DAILY Acetaminophen [Tylenol] 1,000 mg PO Q6H #100 tab Rosuvastatin(Unk) 20 mg PO HS traZODone HCL 50 - 100 mg PO HS hydroCHLOROthiazide 25 mg PO DAILY buPROPion SR [Wellbutrin SR] 300 mg PO DAILY Discharge Medication List Desvenlafaxine Succinate [Pristiq] 200 mg PO DAILY 01/05/20 [History] Metoprolol Tartrate [Lopressor] 100 mg PO DAILY 01/05/20 [History] Magnesium Oxide [Valiente] 500 mg PO DAILY 02/15/20 [History] Acetaminophen [Tylenol] 1,000 mg PO Q6H #100 tab 02/22/20 [Rx] Rosuvastatin(Unk) 20 mg PO HS 09/09/22 [History] buPROPion SR [Wellbutrin SR] 300 mg PO DAILY 09/09/22 [History] hydroCHLOROthiazide 25 mg PO DAILY 09/09/22 [History] traZODone HCL 50 - 100 mg PO HS 09/09/22 [History] Cyclobenzaprine [Flexeril] 5 mg PO TID PRN #60 tablet 09/19/22 [Rx] Ferrous Sulfate [Feosol] 325 mg PO BID #60 tab 09/19/22 [Rx] HYDROcodone/APAP 10-325MG [[place] 10-325] 1 tab PO Q4-6H PRN #42 tab 09/19/22 [Rx] cefaDROXiL [Duricef] 500 mg PO Q12HR 5 Days #10 cap 09/19/22 [Rx] Follow up Appointment(s)/Referral(s): [facility], [NON-STAFF] - Steph Judd MD [Primary Care Provider] - 1 Week Ricardo Acevedo DO [Doctor of Osteopathic Medicine] - 10 Days Activity/Diet/Wound Care/Special Instructions: Spine Discharge and Recovery Instructions Date of Surgery: 09/14/2022 Diagnosis: Lumbar stenosis Procedure: Revision [id number] decompression and fusion Medications: See medication list All medication refills should be obtained through your primary care doctor or your clinic spine surgeon. Please discuss prescription refills at your follow up appointment. Do not call the hospital for medication refills. Dressing: Leave your dressing in place for a total of 5 days post operatively. Then you may remove your dressing and leave open to air. Keep the area clean and if not able to keep area clean, then cover with sterile gauze and tape. Showering: You may shower 3 days after your procedure allowing soap and water to run over incision. Do not scrub. Do not soak. Blot dry. Follow up: Please confirm a follow up appointment with your surgeon 3 weeks post operatively. Please make an appointment to follow up with your PCP in 1-2 weeks after surgery for evaluation 3 phase, 3-week plan POST OP WEEKS 1-3 1. Lifting/carrying/pushing/pulling limited to less than 5 pounds. 2. Do not sit for longer than 15 minutes at one time. Get up and walk around. Prolonged sitting is NOT advised. If you lay down, see if you can tolerate laying down on you front (belly side) 3. Walk for periods of 15 minutes = 1 mile but no longer; do it multiple times times each day. 4. Ice your low back after activity. POST OP WEEKS 3-6 1. Lifting limited to less than 20 pounds. 2. Do not sit for longer than 30 minutes at a time. Frequently change positions. Use a sit-to stand workstation or take frequent breaks from sitting if you have returned to work. 3. Walk for 30 minutes each day. If possible, do these three or more times a day POST OP WEEKS 6+ At your 6-week appointment we will give you a physical therapy referral to focus on a core stabilization and strengthening program. You should also work on leg & buttock strengthening, hamstring & quadriceps stretching, and continue a low impact aerobic activity program such as swimming, walking, or riding a stationary bicycle. During the initial 6 weeks after your surgery, you are at the highest risk of re-injuring your spine. You should generally avoid BLTs (bending, lifting and twisting combination motions) and follow the above guidelines to reduce the chance of reinjury. You can anticipate post op appointments in our office at approximately 3 weeks and 6 weeks after your surgery. INCISION CARE: If your incision is not draining you do NOT need to cover it with a dressing. Keep your incision clean, dry and intact. In most cases, we apply skin glue, josi or sutures to the incision at the time of surgery. This will be like a crust or have the appearance of a scab and will fall off in time on its own. The stitches or josi need to be removed at 3 weeks post op appointment. You may begin to shower 3 days after surgery (this allows the glue to landeros well). However, please avoid scrubbing the incision site or peeling off any of the skin glue. This will ensure optimal healing of your incision. Also, during this time avoid soaking the incision area in water - this includes swimming pools, hot tubs or baths. No ointments, lotions or oils on the incision until your surgeon allows. Leave josi, sutures or glue in place. Neurological dysfunction that comes on suddenly can also be a sign of a stroke. Below some common symptoms of a stroke are listed: B - balance difficulty such as sudden onset walking or leaning to one side - NEW E - eye problem such as sudden double vision or trouble seeing on one side - NEW F - Facial weakness or numbness on one side - NEW A - Arm or leg weakness or numbness on one side - NEW S - Slurred speech or difficulty with word finding - NEW T - Time is BRAIN! Call 911 as soon as you recognize these symptoms Diet: Consume a regular diet rich in vegetables and lean protein such as chicken or fish. You should consume in a ratio of approximately 20% fats|40% carbohydrates|40%protein. Vegetables, sweet potatoes, brown rice or quinoa are examples of good carbohydrates. Chips, white bread, cookies and sweets/sugar are examples of bad carbohydrates. Limit your bad carbs, go wild with good carbs. "Life's Simple 7" Guidelines as per [place] [employer] These will help you reclaim your life after surgery and shipping room helper in your recovery, keeping in mind your restrictions. (1) Get Active. Physical activity can help people lose weight, control high blood pressure and cholesterol, feel emotionally better, and sleep better. (2) Control Cholesterol. Avoid a diet high in saturated fat, trans fat, & cholesterol. Limit whole milk & cream, ice cream, butter, egg yolks, processed meats (like sausage and hot dogs), and fatty meats. Choose healthy foods that are low in saturated fat, trans fat and cholesterol which include: Fruits and vegetables, fiber rich grain products (like whole grain pasta and brown rice), lean meat such as chicken, fish, nuts, seeds, and legumes. (3) Eat Better. Eat small portions. Shop at the grocery with a list and do not stray from it. Tips for a healthy diet include: Limit sodium intake to less than 1500mg daily, avoid prepackaged, processed, and fast foods, choose a diet rich in fruits, vegetables, and whole grain, high fiber foods, and limit saturated & cholesterol in your diet. (4) Manage Blood Pressure. If you have high blood pressure, you should have a cuff at home so that you can check your blood pressure regularly. Be sure you have a good cuff. An arm one is generally better than a wrist one. Bring the cuff to a doctor's appointment to validate that the measurements that your cuff are taking are accurate. Take your blood pressure twice daily when you are sitting down and relaxing. Record the numbers in a log and bring this log with you to your doctors' appointments. (5) Lose Weight if your BMI is above 25. A healthy BMI is between 19-25. To calculate Your BMI, you may use a Standard BMI Calculator on the NIH BMI website: <www.nhlbi.nih.gov/guidelines/obesity/BMI/bmicalc.htm>. Weigh oneself daily. If you are overweight, set a goal to lose weight. A pound a week loss if needed is a good target. (6) Reduce Blood Sugar. Limit foods and liquids with "added sugars." (Added sugars include sucrose, fructose, glucose, maltose, dextrose, high fructose corn syrup, corn syrup, concentrated fruit juice and honey). (7) Stop Smoking. If you smoke, quitting smoking is one of the best things that you can do for your health. Smoking increases your risk of heart attack, stroke, and peripheral vascular disease, which is a build-up of plaque in your arteries. Please discard all the cigarettes and lighters in your house. Have a plan for what you will do when you have the urge to smoke. Direct and second- hand smoke shortens your life as well as the lives of your family, friends and others around you. For your health and the health of those around you, please consider quitting! Proper Bending Body Mechanics: Maintain a wide stance with one foot slightly in front of the other. Keep your back straight. Bend utilizing the strength in your hips and knees. Do not bend at the waist. Maintain the lifted object at your waist-level close to your body. Avoid lifting weight that causes immediately pain or pain anywhere in the body afterwards. Smoking/Nicotine If there was ever one thing that you could do to increase your overall health, decrease your risk of cardiovascular problems by about 39% the second you make the choice, it is to STOP SMOKING. Your body's most instant gratification is the second you stop smoking. We have all heard the studies, read the articles but it is true, smoking is extremely bad for your overall health, and moreover it is detrimental to your bone health. Nicotine, IN ANY FORM, kills bone cells, prevents your body from healing fractures, and significantly prolongs healing after surgery. In spine surgery specifically, it increases your risk of not healing your bones to create a fusion and increases your risk of having a revision surgery due to this up to 60%. I know it is hard. I know it feels impossible. But there are ways. Take control of your life. We are here to help you through it. And when you are ready, ask us and we can direct you to help if you desire. Use the START Plan to Quit Smoking (please visit the HelpCuiker.org website listed below for more information): S = Set a quit date. Choose a date within the next 2 weeks, so you have enough time to prepare without losing your motivation to quit. If you mainly smoke at work, quit on the weekend, so you have a few days to adjust to the change. T = Tell family, friends, and co-workers that you plan to quit. Let your friends and family in on your plan to quit smoking and tell them you need their support and encouragement to stop. Look for a quit olimpia who wants to stop smoking as well. You can help each other get through the rough times. A = Anticipate and plan for the challenges you'll face while quitting. Most people who begin smoking again do so within the first 3 months. You can help yourself make it through by preparing ahead for common challenges, such as nicotine withdrawal and cigarette cravings. R = Remove cigarettes and other tobacco products from your home, car, and work. Throw away all your cigarettes (no emergency pack!), lighters, ashtrays, and matches. Wash your clothes and freshen up anything that smells like smoke. Shampoo your car, clean your drapes and carpet, and steam your furniture. T = Talk to your doctor about getting help to quit. Your doctor can prescribe medication to help with withdrawal and suggest other alternatives. If you can't see a doctor, you can get many products over the counter at your local pharmacy or grocery store, including the nicotine patch, nicotine lozenges, and nicotine gum. Resources for Quitting Smoking: <https://www.[place].gov/documents/[facility]/Quit_Tobacco_Resources_for_patients_313 480_7.pdf> Supplementation: Take recommended dosages of Vitamin D and Calcium to help fortify your bones and help them to heal. See your health maintenance packet for dosages and recommended levels. DVT/VTE prophylaxis: You will be given compression stockings from the hospital. Wear these daily for the first two weeks after surgery. You may take them off at night. You may be prescribed a medication to help thin your blood. Take this as directed. If you are not prescribed this medication, early and frequent ambulation has been shown to be the best prophylaxis to deep vein thrombosis and sequelae related to this event. Discharge Disposition: HOME WITH HOME HEALTH SERVICES
[2022-09-19 11:23] VITALS: BP 136/83; PULSE 85; RESP 20
--- NOTE | 2022-09-19 12:14 | P.PN ---
Subjective Progress Note Date: 09/19/22 Subjective: Patient seen and examined at bedside. No acute events overnight. Pain has improved. She denies any lightheadedness, shortness of breath, palpitations, nausea, vomiting, diarrhea, constipation, or urinary complaints. Pertinent positives and negatives as discussed above, a complete review of systems was performed and all other systems are negative. Vitals Signs Reviewed. General: nontoxic, no distress, appears at stated age Derm: warm, dry, dressing clean, dry, intact Head: atraumatic, normocephalic, symmetric Eyes: EOMI, no lid lag, anicteric sclera Mouth: no lip lesion, mucus membranes moist Cardiovascular: S1S2 reg, no murmur Lungs: CTA bilateral, no rhonchi, no rales , no accessory muscle use Abdominal: soft, nontender to palpation, no guarding, no appreciable or ganomegaly Ext: no gross muscle atrophy, no edema, no contractures Neuro: CN II-XI grossly intact, no focal neuro deficits Psych: Alert, oriented 3, appropriate affect Data Reviewed Today: Pertinent Labs: Hemoglobin 9.7, sodium 137, creatinine 0.55 Imaging: None today Assessment and Plan: Active: Status post T10 to pelvis decompression and fusion revision surgery Hypotension, resolved History of hypertension Acute blood loss anemia, expected outcome of surgery, status post 2 unit of PRBCs Hypokalemia, resolved Transaminitis Hyponatremia, resolved -Orthospine note reviewed, patient being discharged -On oral Tylenol, IV Dilaudid as needed, oral [place] for pain -No right upper quadrant pain Chronic: Depression Anxiety Dyslipidemia Patient restarted on antihypertensives, will follow-up with her mingler operator for further adjustment. Patient is medically optimized for discharge home. Thank you for allowing us to participate in the care of this pleasant patient. Do not hesitate to contact us with questions. Someone can be reached from the [facility] hospitalist group all hours of the day at [phone] or via [employer]. Objective - Vital Signs Vital signs: Vital Signs Temp 98.4 F 09/19/22 07:45 Pulse 85 09/19/22 11:00 Resp 20 09/19/22 11:00 BP 136/83 09/19/22 11:00 Pulse Ox 99 09/19/22 11:00 FiO2 Intake & Output 09/18/22 09/19/22 09/19/22 18:59 06:59 18:59 Intake Total 730 2260 0 Output Total 120 Balance 610 2260 0 Weight 72.4 kg Intake: Intake, IV Titration 900 Amount Sodium Chloride 0.9% 1, 900 000 ml @ 75 mls/hr IV . [id number] Rx#:[id number] Oral 420 1360 0 Blood Product 310 Rc As-1 Unit 310 [id number] Output: Drainage 120 Back 120 Other: Voiding Method Toilet Toilet Toilet # Voids 1 2 - Labs CBC & Chem 7: 09/19/22 07:59 09/19/22 07:58 Labs: Abnormal Lab Results - Last 24 Hours (Table) 09/18/22 09/19/22 09/19/22 Range/Units 07:33 07:58 07:59 RBC 3.18 L (3.80-5.40) m/uL Hgb 9.7 L D (11.4-16.0) gm/dL Hct 29.5 L (34.0-46.0) % Lymphocytes # 0.8 L (1.0-4.8) k/uL Chloride 97 L (98-107) mmol/L Carbon Dioxide 35 H (22-30) mmol/L BUN 5 L (7-17) mg/dL Glucose 102 H (74-99) mg/dL Calcium 7.6 L (8.4-10.2) mg/dL Crossmatch See Detail
== END 2022-09-19 13:29 | disposition home health service (06) | DRG 460 ==
LOC: 2ORMAIN 06:27 → 4SSUR 14:51 → 3SCARD 16:38
PROVIDERS: ADMIT Orthopaedic Surgery; ATTEND Orthopaedic Surgery
PROC: 0PH404Z Insertion of Internal Fixation Device into Thoracic Vertebra, Open Approach (ICD-10-PCS; principal; 2022-09-14 07:30)
PROC: 8E0WXBZ Computer Assisted Procedure of Trunk Region (ICD-10-PCS; principal; 2022-09-14 07:30)
PROC: 0PP404Z Removal of Internal Fixation Device from Thoracic Vertebra, Open Approach (ICD-10-PCS; principal; 2022-09-14 07:30)
PROC: 01NB0ZZ Release Lumbar Nerve, Open Approach (ICD-10-PCS; principal; 2022-09-14 07:30)
PROC: 0SG00AJ Fusion of Lumbar Vertebral Joint with Interbody Fusion Device, Posterior Approach, Anterior Column, Open Approach (ICD-10-PCS; principal; 2022-09-14 07:30)
PROC: 30233N1 Transfusion of Nonautologous Red Blood Cells into Peripheral Vein, Percutaneous Approach (ICD-10-PCS; 2022-09-16)
DX: M51.36 Other intervertebral disc degeneration, lumbar region (principal); D62 Acute posthemorrhagic anemia; E87.1 Hypo-osmolality and hyponatremia; M48.062 Spinal stenosis, lumbar region with neurogenic claudication; E87.6 Hypokalemia; F32.A Depression, unspecified; F41.9 Anxiety disorder, unspecified; E78.5 Hyperlipidemia, unspecified; I10 Essential (primary) hypertension; M47.26 Other spondylosis with radiculopathy, lumbar region; Z87.81 Personal history of (healed) traumatic fracture; Z79.899 Other long term (current) drug therapy; Z87.442 Personal history of urinary calculi; Z87.891 Personal history of nicotine dependence; F90.9 Attention-deficit hyperactivity disorder, unspecified type; G89.29 Other chronic pain; M19.90 Unspecified osteoarthritis, unspecified site; I95.9 Hypotension, unspecified; R74.01 Elevation of levels of liver transaminase levels
CPT/HCPCS: 72100; 72128; 72131; 80048; 80053; 85025; 85027; 86850; 86900; 86901; 86920

== ENCOUNTER → 2024-02-28 | Outpatient (CLI) | payer MEDICARE, OTHER ==
--- NOTE | 2024-02-28 11:31 | CT ---
EXAMINATION TYPE: CT lumbar spine wo con CT DLP: 717.50 mGycm, Automated exposure control for dose reduction was used. DATE OF EXAM: 02/28/2024 10:39 AM COMPARISON: CT thoracolumbar spine 09/14/2022, CT abdomen and pelvis 04/09/2022, CT lumbar spine 02/19. CLINICAL INDICATION:Female, 63 years old with history of M54.16 RADICULOPATHY M54.9 DORSALGIA; PHH, TECHNIQUE: Multiple axial images were obtained from the midportion of T11 through the sacroiliac shelia nts. Soft tissue and bone windows in coronal and sagittal planes were obtained and reviewed. Contrast used: none. Oral contrast used: none. FINDINGS: There are 5 lumbar type vertebral bodies. Similar grade 1 anterolisthesis of L4 and L5. Extensive postsurgical changes of the lumbar spine with bilateral pedicular screws involving the visu alized T11-S1 vertebral bodies with laminectomy changes at L2-S1. Additional bilateral screws involvi ng the bilateral iliac bones. Hardware appears intact with appropriate alignment. Single right-sided pedicle screw at L1. Disc space is identified from T2 through S1. Hardware creates streak artifact wh ich limits evaluation. Vertebral compression fracture of the L1 vertebral body redemonstrated with no significant height loss. There is approximately 3 mm retropulsion redemonstrated. No evidence of acu te fracture is identified. No gross evidence of significant central canal stenosis within the limitations of streak artifact. Th ere is fluid identified within the laminectomy bed from L2 through S1. Difficult to measure due to st reak artifact. Gallbladder is surgically absent. Punctate nonobstructive bilateral renal calculi. IMPRESSION: Postsurgical changes from visualized fixation T11-S1. Hardware appears intact and appropriately align ed. This creates streak artifact which limits evaluation. There is fluid identified within the ramin ctomy bed from L2 through S1 likely representing a seroma. No gross evidence of significant central c anal or neuroforaminal stenosis. [facility], , 02/28/2024 11:29 AM
== END | disposition home or self-care (01) ==
LOC: RADCTMAIN 10:12
PROVIDERS: ATTEND Orthopaedic Surgery
DX: M54.16 Radiculopathy, lumbar region (principal); N20.0 Calculus of kidney
CPT/HCPCS: 72131

== ENCOUNTER → 2024-04-27 | Outpatient (CLI) | payer MEDICARE ==
--- NOTE | 2024-04-27 15:54 | XR ---
EXAMINATION TYPE: XR knee complete RT DATE OF EXAM: 04/27/2024 3:07 PM COMPARISON: None. CLINICAL INDICATION: Female, 64 years old with history of M25.561 PAIN IN RIGHT KNEE, pain TECHNIQUE: 3 view(s) obtained. FINDINGS: No acute fracture evident. Mild narrowing is present in the medial compartment joint space. Lateral c ompartment joint space is preserved. No joint effusion is evident. Posterior superior patellar spur i s present. Follow up exams can be performed 7-10 days from acute trauma for continued pain IMPRESSION: 1. Mild degenerative changes medial compartment right knee [facility], , 04/27/2024 3:51 PM
== END | disposition home or self-care (01) ==
LOC: RADXRMAIN 14:46
PROVIDERS: ATTEND Registered Nurse General Practice
DX: M17.11 Unilateral primary osteoarthritis, right knee (principal)

== ENCOUNTER → 2024-04-27 | Outpatient (CLI) | payer MEDICARE ==
--- NOTE | 2024-04-27 14:50 | US ---
EXAMINATION TYPE: US venous doppler duplex LE RT DATE OF EXAM: 04/27/2024 2:37 PM COMPARISON: NONE CLINICAL INDICATION: Female, 64 years old with history of M79.661 PAIN RT LOWER LEG; , Pain TECHNIQUE: The lower extremity deep venous system is examined utilizing real time linear array sonog mariana with graded compression, color doppler sonography, and spectral doppler. SIDE PERFORMED: Right FINDINGS: VESSELS IMAGED: Common Femoral Vein Deep Femoral Vein Greater Saphenous Vein * Femoral Vein Popliteal Vein Small Saphenous Vein * Proximal Calf Veins (* superficial vessels) Right Leg: Negative for DVT, Color Doppler imaging shows patency of the vessels. Spectral waveforms are within normal limits. IMPRESSION: 1. Right lower extremity ultrasound negative for deep venous thrombosis [facility], , 04/27/2024 2:48 PM
== END | disposition home or self-care (01) ==
LOC: RADUSWWP 14:08
PROVIDERS: ATTEND Family Medicine
DX: M79.661 Pain in right lower leg (principal)

== ENCOUNTER → 2024-05-15 | Outpatient (CLI) | payer MEDICARE ==
--- NOTE | 2024-05-16 08:36 | MR ---
EXAMINATION TYPE: MR knee RT wo con DATE OF EXAM: 05/15/2024 2:01 PM COMPARISON: Outside radiograph 05/05/2024 CLINICAL INDICATION: Female, 64 years old with history of M25.561 R knee pain, Right knee pain. TECHNIQUE: Multiplanar, multisequence imaging of the right knee is performed without IV contrast. FINDINGS: The ACL and PCL are intact. There is mild edema on either side of the otherwise intact MCL. LCL complex is intact. There is a through thickness radial tear involving the posterior horn of the medial meniscus with mil d extrusion of the meniscal body. Complex multidirectional tear is extending into the body of the med ial meniscus. There is some degenerative spurring in the medial compartment with mild to moderate irr egular cartilage loss along the mid weightbearing aspect of the medial compartment. Lateral meniscus shows some inner margin fraying of the body but otherwise, no discrete tear. There i s a small 1 cm area of moderate irregular cartilage loss involving the far posterior weightbearing as pect of the lateral femoral condyle. Otherwise, lateral compartment articular cartilage volume appear s largely maintained. Mild to moderate irregular cartilage thinning throughout the medial patellar facet. In addition, ther e is mild diffuse thinning of medial trochlear articular cartilage. Extensor mechanism is intact. Some mild inhomogeneous signal involving the deep proximal patellar ten don fibers suggesting some tendinosis. Moderate knee joint effusion and a moderate-sized leaking Linares's cyst measuring up to 4.8 x 3.3 cm. Normal popliteal artery anatomy. Mild generalized muscle atrophy. No suspicious bone marrow replaceme nt. IMPRESSION: 1. Grade 1 MCL sprain. 2. Through thickness radial tear involving the posterior horn of the medial meniscus. Mild extrusion of the meniscal body. Additional complex multidirectional tear extending into the body of the medial meniscus. 3. Inner margin fraying of the body of the lateral meniscus. 4. Mild overall medial and patellofemoral compartmental OA. 5. Moderate knee joint effusion and a moderate-sized leaking Linares's cyst. [facility], , 05/16/2024 8:34 AM
== END | disposition home or self-care (01) ==
LOC: RADMRIMAIN 13:19
PROVIDERS: ATTEND Orthopaedic Surgery
DX: S83.411A Sprain of medial collateral ligament of right knee, initial encounter (principal); M17.11 Unilateral primary osteoarthritis, right knee; M71.21 Synovial cyst of popliteal space [Baker], right knee; X58.XXXA Exposure to other specified factors, initial encounter

== ENCOUNTER 2024-07-04 09:38 | Day surgery (SDC) | payer MEDICARE ==
[~2024-07-04 09:38] MED LIST changes: -ACETAMINOPHEN TAB 500 MG TAB PO PRN; -GABAPENTIN 300 MG CAP PO PRN; -ONDANSETRON 4 MG/2 ML VIAL IVP PRN; -TRANEXAMIC ACID IN NACL,ISO-OS 1,000 MG in SALINE 1 100ML.BAG IVPB PRN
[2024-07-04 10:12] VITALS: TEMP 96.8
[2024-07-04] MEDS: IV FLUID CONTINUATION 1,000 ML IV ONE (10:18)
[2024-07-04] MEDS: LACTATED RINGERS 1,000 ML IV SCH (10:19)
[2024-07-04] MEDS ORDERED: PROPOFOL 10 MG/ML 20 ML VIAL IV ONE (11:10)
[2024-07-04] MEDS ORDERED: GLYCOPYRROLATE 0.2 MG/ML 2 ML VIAL ONE (11:10)
--- NOTE | 2024-07-04 11:26 | P.PCN ---
Date of Procedure: 07/04/24 Procedure(s) Performed: BRIEF HISTORY: Patient is a 64-year-old pleasant white female scheduled for an elective colonoscopy as a part of screening for colon cancer. PROCEDURE PERFORMED: Colonoscopy with snare polypectomy. PREOPERATIVE DIAGNOSIS: Screening for colon cancer. IV sedation per Anesthesia. PROCEDURE: After informed consent was obtained, the patient, was brought into the endoscopy unit. IV sedation was administered by Anesthesia under continuous monitoring. Digital rectal examination was normal. Initially the Olympus CF-160 flexible video colonoscope was then inserted in the rectum, gradually advanced into the cecum without any difficulty. Careful examination was performed as the scope was gradually being withdrawn. Ileocecal valve and the appendiceal orifice were visualized and appeared normal. Prep was excellent. Mucosa of the cecum, ascending colon, appeared normal. The transverse colon there is a 1.5 cm polyp that was removed by snare polypectomy. In the descending colon there was a 1 cm polyp removed by snare polypectomy. Rest of the transverse colon, descending co heath, sigmoid colon, and rectum appeared normal. Retroflexion was performed in the rectum and no lesions were seen. The patient tolerated the procedure well. IMPRESSION: 1.5 cm transverse colon polyp status post polypectomy 1 cm descending colon polyp status post snare polypectomy RECOMMENDATIONS: Findings of this examination were discussed with the patient as well as her family.. Was advised to follow-up with the biopsy results. If the biopsy reveals adenoma she can have repeat colonoscopy in 3 years.
[2024-07-04 11:49] VITALS: BP 136/77; PULSE 63; RESP 16
== END 2024-07-04 12:17 ==
LOC: ORWHC2ENDO 09:38
PROVIDERS: ATTEND Internal Medicine Gastroenterology
DX: Z12.11 Encounter for screening for malignant neoplasm of colon (principal); D12.3 Benign neoplasm of transverse colon; D12.4 Benign neoplasm of descending colon; I10 Essential (primary) hypertension; E78.5 Hyperlipidemia, unspecified; M19.90 Unspecified osteoarthritis, unspecified site; Z87.891 Personal history of nicotine dependence; Z87.442 Personal history of urinary calculi; F90.9 Attention-deficit hyperactivity disorder, unspecified type; F32.A Depression, unspecified; Z79.899 Other long term (current) drug therapy; Z90.710 Acquired absence of both cervix and uterus
CPT/HCPCS: 88305; 45385; J2704; J1596